=== PATIENT | female | born 1970 | race Caucasian/White ===

== ENCOUNTER → 2017-10-22 09:12 | Outpatient (CLI) | payer OTHER, SELFPAY ==
--- NOTE | 2017-10-22 09:15 | RAD_ITS ---
STUDY: X-RAY - RIGHT KNEE REASON FOR EXAM: Female, 47 years old. Right knee pain. TECHNIQUE: 4 view(s) of the knee. COMPARISON: None. FINDINGS: Normal visualized distal femur. Normal visualized proximal tibia and fibula. Normal proximal tibiofibular articulation. Normal medial femorotibial compartment. Normal lateral femorotibial compartment. Normal patellofemoral articulation. The soft tissue structures are unremarkable. RAD/Knee 4 or More Views IMPRESSION: Normal x-ray examination of the knee. Electronically Signed: Clinton Jacobsen MD at 19:56 EST Tel [phone], Service support ,
== END ==
PROVIDERS: Family Provider Internal Medicine; PCP Internal Medicine; Visit Provider Internal Medicine
DX: M25.561 Pain in right knee (principal)
CPT/HCPCS: 73564

== ENCOUNTER 2017-12-03 16:00 | Outpatient (RCR) | payer OTHER, SELFPAY ==
--- NOTE | 2017-10-29 12:02 | HP.PTEVAL_ITS ---
Patient's Visit Information GABRIELA MONTANA is a 47 year old F referred to Physical Therapy by Kiley RESENDIZ with a diagnosis of R lateral knee pain. Date of Evaluation: 10/29/17 Physical Therapist: Ignacio Oconnell, PT, - Visit Plan Frequency: 2-3x /Week Duration: 4 Weeks Plan: R LE stretching and strengthening (IT band), core stab ex's, DTR, foam rolling, bike, and HEP - Subjective Subjective: Pt reports she began crossfit 3 years ago and has gradually noticed an increase in R lat knee pain since. Pt reports her pain will come and go, depending on what type of activity she performs. Pt reports descending stairs and deep squatting are what causes her the most pain. No T or N at this time. Pt reports no sleep diff secondary to pain. Pt reports no prior Hx of L lat knee pain prior to this episode. Pt has not found anytbing that helps with her pain. 0/10 at rest, 8/10 at worst (squatting activity) - Pain R knee Pain Intensity (Out of 10): 0 Pain Intensity Range: 8 - Objective Neuro: B LE sensation is WNL to light touch. B pat tendon reflex= 2/3. Palpation: Pt is very sore along the distal IT band of R knee. No obvious deformity. MMT: B knee ext and flex= 5/5. ROM: L knee 0-120, R knee 0-115. Girth at joint line: R knee 39 cm, L knee 41 cm. Flexibility: pos IT band tightness - Goals Goal 1:: Decrease R knee pain x 50% to aid with work requirements Goal Time Frame: 4-6 Weeks Goal 2:: Increase R LE flexibility x 1 grade to aid with decreasing pain Goal Time Frame: 4-6 Weeks Goal 3:: I with HEP Goal Time Frame: 4-6 Weeks - Rehabilitation Potential Physical Therapy Diagnosis: R lateral knee pain, limited flexibility, and intol for squatting activity secondary to L IT-band syndrome Rehabilitation Potential: Good - Anticipated Interventions Patient/Client Instruction: Educate patient on: Condition, Plan of Care For the Purpose of:: To improve self management Therapeutic Exercise to Include: Strength training, Endurance training, Flexibilty training, Dynamic Lumbar Stabilization For the Purpose of:: To decrease pain, To increase ROM, To improve muscle performance and motor function Ultrasound (thermal/non thermal): Yes For the Purpose of:: To decrease pain Thank you for the opportunity to evaluate your patient. For Medicare and Medicare HMO plans, please review the plan of care and approve it. It will need to be FAXED BACK to us at [phone] for Medicare purposes. Please let me know if there are questions or concerns regarding this plan of care. Physician Signature: Date:
--- NOTE | 2017-12-03 16:34 | HP.PTEVAL_ITS ---
Patient's Visit Information GABRIELA MONTANA is a 47 year old F referred to Physical Therapy by Kiley RESENDIZ with a diagnosis of R lateral knee pain. Date of Evaluation: 10/29/17 Physical Therapist: Ignacio Oconnell PT, - Visit Plan Frequency: 2-3x /Week Duration: 4 Weeks Plan: Discharge - Subjective Subjective: Pt reports she began crossfit 3 years ago and has gradually noticed an increase in R lat knee pain since. Pt reports her pain will come and go, depending on what type of activity she performs. Pt reports descending stairs and deep squatting are what causes her the most pain. No T or N at this time. Pt reports no sleep diff secondary to pain. Pt reports no prior Hx of L lat knee pain prior to this episode. Pt has not found anytbing that helps with her pain. 0/10 at rest, 8/10 at worst (squatting activity) - Pain R knee Pain Intensity (Out of 10): 1 Pain Intensity Range: 8 - Objective Neuro: B LE sensation is WNL to light touch. B pat tendon reflex= 2/3. Palpation: Pt is very sore along the distal IT band of R knee. No obvious deformity. MMT: B knee ext and flex= 5/5. ROM: L knee 0-120, R knee 0-115. Girth at joint line: R knee 39 cm, L knee 41 cm. Flexibility: pos IT band tightness - Goals Goal 1:: Decrease R knee pain x 50% to aid with work requirements Goal Time Frame: 4-6 Weeks Goal 2:: Increase R LE flexibility x 1 grade to aid with decreasing pain Goal Time Frame: 4-6 Weeks Goal 3:: I with HEP Goal Time Frame: 4-6 Weeks - Rehabilitation Potential Physical Therapy Diagnosis: R lateral knee pain, limited flexibility, and intol for squatting activity secondary to L IT-band syndrome Rehabilitation Potential: Good - Anticipated Interventions Patient/Client Instruction: Educate patient on: Condition, Plan of Care For the Purpose of:: To improve self management Therapeutic Exercise to Include: Strength training, Endurance training, Flexibilty training, Dynamic Lumbar Stabilization For the Purpose of:: To decrease pain, To increase ROM, To improve muscle performance and motor function Ultrasound (thermal/non thermal): Yes For the Purpose of:: To decrease pain Thank you for the opportunity to evaluate your patient. For Medicare and Medicare HMO plans, please review the plan of care and approve it. It will need to be FAXED BACK to us at [phone] for Medicare purposes. Please let me know if there are questions or concerns regarding this plan of care. Physician Signature: Date:
--- NOTE | 2018-01-20 14:40 | HP.PTDCSUM_ITS ---
HP - PT D/C Summary It has been my pleasure to treat GABRIELA MONTANA under orders from Kiley Parekh, for the diagnosis of R lateral knee pain for a total of 10 visit(s). Discharge Date: Please see the following information for a summary of their discharge status. - Subjective Subjective: Pt was sore today. Better now - Pain R knee Pain Intensity (Out of 10): 1 - Objective Objective/Function: R knee pain /10. R knee ROM: flex= 110, ext=0. R knee MMT : 5/5 throughout. I with HEP. Rx goals achieved - Goals Goal 1:: Decrease R knee pain x 50% to aid with work requirements Goal 2:: Increase R LE flexibility x 1 grade to aid with decreasing pain Goal Progress: Goal Met Goal 3:: I with HEP - Plan Plan: Discharge - D/C Information If there are questions or concerns regarding this patient's physical therapy, please feel free to call me at [phone]. Thank you for the referral of this patient. Sincerely, Ignacio Oconnell, PT,
== END 2017-12-03 19:00 | disposition home or self-care (01) ==
LOC: PT 16:00
PROVIDERS: Family Provider Internal Medicine; PCP Internal Medicine; Visit Provider Internal Medicine
DX: M25.561 Pain in right knee (principal)
CPT/HCPCS: 97110; 97161; 97530

== ENCOUNTER → 2017-12-10 07:24 | Outpatient (CLI) | payer OTHER, SELFPAY ==
--- NOTE | 2017-12-10 07:45 | MRI_ITS ---
STUDY: MRI RIGHT MIDFOOT REASON FOR EXAM: Foot pain, fourth metatarsal cyst, arthritis. TECHNIQUE: Standardized fat and water weighted pulse sequences were obtained in all 3 orthogonal planes. COMPARISON: None. FINDINGS: There is a small tibiotalar joint effusion (inversion recovery sagittal image 10). Normal talonavicular articulation. Normal calcaneocuboid articulation. There is mild arthrosis of the navicular-cuneiform articulations with mild chondral thinning and very mild subchondral bone edema (inversion recovery sagittal images 6, 8, 9). Normal intercuneiform articulations. Normal first tarsometatarsal articulation. Normal Lisfranc ligament. Normal second tarsometatarsal articulation. There is arthrosis of the third tarsometatarsal joint with chondral thinning and subchondral cystic change (inversion recovery sagittal images 16, 17). There is arthrosis of the fourth tarsometatarsal joint with chondral thinning and small subchondral cysts of the fourth metatarsal base (inversion recovery sagittal images 16-18). Normal fifth tarsometatarsal joint. There is mild bone edema of the fourth metatarsal base (inversion recovery sagittal images 17, 18), a stress phenomenon. There is mild bone edema in the fifth metatarsal base (inversion recovery sagittal image 21), a stress phenomenon. Normal tibialis anterior tendon. Normal extensor hallucis longus tendon. Normal extensor digitorum longus tendons. Normal peroneus longus tendon and distal insertion. Normal peroneus brevis tendon and distal insertion. Normal visualized intrinsic muscles of the foot. Normal visualized plantar fascia. There is a small ganglion cyst lateral to the distal calcaneus (T2 axial series 6 image 16) measuring 0.4 cm in length. 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 Mild bone edema of the fourth and fifth metatarsal bases, a stress phenomenon. Mild arthrosis of the navicular-cuneiform articulations. Small ganglion cyst lateral to the distal calcaneus. Small tibiotalar joint effusion. Electronically Signed: Davian Arredondo MD at 9:48 EDT Tel , Service support ,
== END ==
PROVIDERS: Family Provider Internal Medicine; PCP Internal Medicine; Visit Provider Podiatrist
DX: M25.571 Pain in right ankle and joints of right foot (principal); M85.671 Other cyst of bone, right ankle and foot; M19.071 Primary osteoarthritis, right ankle and foot
CPT/HCPCS: 73718

== ENCOUNTER → 2018-01-16 08:25 | Outpatient (CLI) | payer OTHER, SELFPAY ==
[2018-01-16 09:00] LABS: Absolute Lymphocyte Count 2.11 X10^3/ul (0.83-4.51); Absolute Neutrophil Count 4.9 X10^3/uL (2.0-7.7); Basophil# 0.02 X10^3/uL; Basophil% 0.3 % (0-1); Eosinophil# 0.08 X10^3/uL; Eosinophils% 1.1 % (0-5); Hematocrit 38.9 % (37-47); Hemoglobin 12.8 g/dl (12.0-15.0); Lymphocyte # 2.11 X10^3/ul (4.0); Lymphocyte % 27.8 % (19-41); Mean Corp Hgb Conc 32.9 g/gl (32-36); Mean Corpuscular Hgb 27.5 pg (27.0-32.0); Mean Corpuscular Volume 83.7 fL (81-99); Mean Platelet Vol. 9.5 fl (6.2-12.0); Monocyte# 0.49 X10^3/uL; Monocyte% 6.4 % (0-10); Neutrophil # 4.89 X10^3/uL (2.7-7.7); Neutrophil % 64.3 % (47-70); Platelet Count 326 K/mm3 (150-450); RBC Distribution Width CV 14.3 % (11.6-14.6); RBC Distribution Width SD 43.9 fl (35.1-43.9); Red Blood Count 4.65 M/mm3 (4.2-5.4); White Blood Count 7.6 K/mm3 (4.4-11.0)
[2018-01-16 09:01] LABS: Color, Urine Yellow (Yellow); Glucose, Dipstick Normal (Normal); Ketone-Dipstick Negative (Negative); Leukocyte Esterase-Dipstick Negative /ul (Negative); Nitrite-Dipstick Negative (Negative); Occult Blood-Urine Negative /ul (Negative); Protein-Dipstick Negative (Negative); Urine Bilirubin Dipstick Negative (Negative); Urine Clarity Clear (Clear); Urine Urobilinogen Normal (Normal)
[2018-01-16 09:05] LABS: POSITIVE COUNT NO; POSITIVE DIFFERENTIAL NO; POSITIVE MORPHOLOGY NO
[2018-01-16 09:24] LABS: Microalbumin,Random Urine 8.5 mg/L (NO RANGE EST.); Microalbumin:Creatinine Ratio 16.6 mg/g CRE (<30 mg/g CRE)
[2018-01-16 09:33] LABS: AST(SGOT) 14 U/L (15-37); Alanine Aminotransfer ALT/SGPT 20 U/L (13-56); Albumin, Serum 3.6 g/dL (3.2-5.0); Alkaline Phosphatase 48 U/L (45-117); Anion Gap 10 (5-15); BUN 13 mg/dL (7-18); BUN/Creat Ratio 13.7 RATIO (10-20); Calcium,Total 8.8 mg/dL (8.5-10.1); Chloride 103 mmol/L (98-107); Cholesterol 122 mg/dL (200); Creatinine, Serum 0.95 mg/dL (0.55-1.02); EST Glomerular Filtration Rate 67 mL/min (>60); Est Glom Filt Rate - Afr Amer 81 mL/min (>60); Free T3 2.3 pg/mL (2.18-3.98); Globulin 3.5 g/dL (2.2-4.2); Glucose 85 mg/dL (74-106); High Density Lipoprotein 38 mg/dL; Protein, Total 7.1 g/dL (6.4-8.2); Sodium Level 137 mmol/L (136-145); T4 Free Direct 1.48 ng/dL (0.76-1.46); Thyroid Stim Hormone (TSH) 0.23 uIU/mL (0.358-3.74); Triglycerides 69 mg/dL; Very Low Density Lipoprotein 14 mg/dL (5-40)
[2018-01-17 08:54] LABS: AFP, Tumor Marker 1.4 ng/mL (0.0-8.3)
== END ==
PROVIDERS: Family Provider Internal Medicine; PCP Internal Medicine; Visit Provider Internal Medicine
DX: E78.2 Mixed hyperlipidemia (principal); E03.9 Hypothyroidism, unspecified; I10 Essential (primary) hypertension
CPT/HCPCS: 36415; 80053; 80061; 81002; 82043; 82105; 82570; 84439; 84443; 84481; 85025

== ENCOUNTER → 2018-02-14 07:47 | Outpatient (CLI) | payer OTHER, SELFPAY ==
[2018-02-14 13:14] LABS: Ferritin 16 ng/mL (8-252); Free T3 2.4 pg/mL (2.18-3.98); Iron 71 ug/dL (50-170); T4 Free Direct 1.58 ng/dL (0.76-1.46); Thyroid Stim Hormone (TSH) 0.42 uIU/mL (0.358-3.74)
== END ==
PROVIDERS: Family Provider Internal Medicine; PCP Internal Medicine; Visit Provider Internal Medicine
DX: L65.9 Nonscarring hair loss, unspecified (principal); Z86.39 Personal history of other endocrine, nutritional and metabolic disease
CPT/HCPCS: 36415; 82728; 83540; 84439; 84443; 84481

== ENCOUNTER → 2018-03-07 12:30 | Outpatient (CLI) | payer OTHER, SELFPAY ==
--- NOTE | 2018-03-07 13:00 | MRI_ITS ---
STUDY: MRI RIGHT KNEE REASON FOR EXAM: Gradual onset of right knee pain, no specific injury. TECHNIQUE: Standardized fat and water weighted pulse sequences were obtained in all 3 orthogonal planes. COMPARISON: Radiographs 10/22/2017. FINDINGS: Normal medial meniscus. Normal hyaline cartilage of the medial femorotibial compartment. Normal medial femoral condyle and tibial plateau. Normal medial collateral ligamentous complex (MCL). Normal distal semimembranosus, gracilis and semitendinosus tendons. Normal lateral meniscus. Normal hyaline cartilage of the lateral femorotibial compartment. Normal lateral femoral condyle and tibial plateau. Normal proximal tibiofibular articulation. Normal lateral collateral (fibular) ligament. Normal popliteus tendon. Normal biceps femoris tendon. There is intrasubstance mucoid degeneration/cyst of the anterior cruciate ligament (T2 sagittal images 12, 13) without focal discontinuity of the ligament. Normal posterior cruciate ligament (PCL). Normal congruent patellofemoral articulation. Normal hyaline cartilage of the patellofemoral compartment. Normal medial and lateral patellar retinaculum. Normal quadriceps tendon. Normal patellar tendon. Normal Hoffa's fat pad. There is a very small joint effusion. The soft tissues are unremarkable. The otherwise visualized osseous structures are unremarkable. MRI/Lower Ext Joint Only (Routine) IMPRESSION: Intrasubstance mucoid degeneration/cyst of the anterior cruciate ligament. Very small joint effusion. Otherwise, unremarkable MRI of the right knee without demonstrated meniscal tear. Electronically Signed: Davian Arredondo MD at 13:36 EDT Tel , Service support ,
== END ==
PROVIDERS: Family Provider Internal Medicine; PCP Internal Medicine; Visit Provider Orthopaedic Surgery
DX: M25.561 Pain in right knee (principal)
CPT/HCPCS: 73721

== ENCOUNTER → 2019-03-26 09:06 | Outpatient (CLI) | payer OTHER, SELFPAY ==
[2019-03-19 09:11] VITALS: BMI 31.5
--- NOTE | 2019-03-26 09:09 | BI_ITS ---
MAMMOGRAPHY - BILATERAL DIAGNOSTIC REASON FOR EXAM: Female, 49 years old. Lump PERTINENT HISTORY: Grandmother, and on with breast cancer. TECHNIQUE: Digital examination. Mediolateral oblique (MLO) and craniocaudad (CC) views of both breasts were obtained along with 3-D edwina synthesis. CAD: CAD was performed on this study. COMPARISON: 09/10/2017 FINDINGS: Breast Composition: There are scattered areas of fibroglandular density. There are no dominant masses or suspicious calcifications. However, because the patient complains of a palpable lump in the left breast, further evaluation of this area with ultrasound recommended. No other significant abnormalities are identified. BI/DIAG MAMM W/CAD, BILAT IMPRESSION: Further ultrasonographic evaluation recommended, as described above. Recall Side: Left Breast ASSESSMENT CATEGORY: BIRADS Category 0: Incomplete. Need additional imaging evaluation. A letter regarding these results will be sent to the patient by the facility within 30 days. FOLLOW UP RECOMMENDATION: Ultrasound Recommended. (I) Approximately 10% of breast cancers are not detected by mammography. A normal mammogram should not delay biopsy of a clinically suspicious abnormality. Electronically Signed: Norberto Valencia MD at 11:58 EDT , Service support ,
--- NOTE | 2019-03-26 09:09 | US_ITS ---
STUDY: ULTRASOUND BREAST - LEFT REASON FOR EXAM: Female, 49 years old. Lump TECHNIQUE: Axial and longitudinal images of the LEFT breast were performed with a high resolution ultrasound transducer. COMPARISON: None. FINDINGS: LEFT Breast: Ultrasound evaluation of the left breast, in the area of concern, 3-4 o'clock shows only normal dense fibroglandular tissue. No suspicious solid or cystic mass, architectural distortion, or shadowing calcifications. US/Breast Limited Unilateral IMPRESSION: No suspicious sonographic findings ASSESSMENT CATEGORY: BIRADS Category 1: Negative. A letter regarding these results will be sent to the patient by the facility within 30 days. Electronically Signed: Norberto Valencia MD at 11:59 EDT , Service support ,
== END ==
PROVIDERS: Family Provider Internal Medicine; PCP Internal Medicine; Referring Provider Nurse Practitioner Women's Health; Visit Provider Nurse Practitioner Women's Health
DX: N63.20 Unspecified lump in the left breast, unspecified quadrant (principal)
CPT/HCPCS: 76642; 77062; 77066; G0279

== ENCOUNTER → 2019-08-21 13:18 | Outpatient (CLI) | payer OTHER, SELFPAY ==
[2019-08-21 08:20] VITALS: BMI 31.5
[2019-08-28 14:07] LABS: HPV Genotype 16, Aptima Positive (Negative)
[2019-08-28 16:14] LABS: HPV APTIMA, High Risk Positive (Negative); HPV Genotype 18,45 Aptima Negative (Negative)
== END ==
PROVIDERS: Family Provider Internal Medicine; PCP Internal Medicine; Visit Provider Nurse Practitioner Women's Health
DX: Z12.4 Encounter for screening for malignant neoplasm of cervix (principal)
CPT/HCPCS: 87624; 88175; G0145

== ENCOUNTER → 2020-01-01 07:13 | Outpatient (CLI) | payer OTHER, SELFPAY ==
[2019-08-21 08:20] VITALS: BMI 31.5
--- NOTE | 2020-01-01 07:22 | RAD_ITS ---
STUDY: X-RAY - LEFT HAND REASON FOR EXAM: Female, 49 years old. POLYARTHRALGIA. BILAT HAND PAIN IN METACARPAL AREA. RIGHT HAND PAIN ( and gt;) LEFT HAND. PT IS DOMINANT RIGHT HAND TECHNIQUE: 3 view(s) of the hand. COMPARISON: None. FINDINGS: Normal radiocarpal articulation. Normal distal radioulnar joint. Normal visualized carpal bones. Normal carpal articulations Normal carpometacarpal articulation of the thumb. Normal second through fifth carpometacarpal joints. Normal metacarpi. Normal metacarpophalangeal joint of the thumb. Normal interphalangeal joint of the thumb. Normal proximal and distal phalanges of the thumb. Normal metacarpophalangeal joints of the second through fifth fingers. Normal proximal and distal interphalangeal joints of the second through fifth fingers. Normal phalanges of the second through fifth fingers. The soft tissue structures are unremarkable. RAD/Hand Min 3 Views IMPRESSION: Normal x-ray examination of the hand. Electronically Signed: Clinton Jacobsen, at 9:24 EDT , Service support ,
--- NOTE | 2020-01-01 07:22 | RAD_ITS ---
STUDY: X-RAY - RIGHT HAND REASON FOR EXAM: Female, 49 years old. POLYARTHRALGIA. BILAT HAND PAIN IN METACARPAL AREA. RIGHT HAND PAIN ( and gt;) LEFT HAND. PT IS DOMINANT RIGHT HAND TECHNIQUE: 3 view(s) of the hand. COMPARISON: None. FINDINGS: Normal radiocarpal articulation. Normal distal radioulnar joint. Normal visualized carpal bones. Normal carpal articulations Normal carpometacarpal articulation of the thumb. Normal second through fifth carpometacarpal joints. Normal metacarpi. Normal metacarpophalangeal joint of the thumb. Normal interphalangeal joint of the thumb. Normal proximal and distal phalanges of the thumb. Normal metacarpophalangeal joints of the second through fifth fingers. Normal proximal and distal interphalangeal joints of the second through fifth fingers. Normal phalanges of the second through fifth fingers. The soft tissue structures are unremarkable. RAD/Hand Min 3 Views IMPRESSION: Normal x-ray examination of the hand. Electronically Signed: Clinton Jacobsen, at 9:24 EDT , Service support ,
== END ==
PROVIDERS: PCP Internal Medicine
DX: M25.50 Pain in unspecified joint (principal)
CPT/HCPCS: 73130

== ENCOUNTER → 2020-01-05 12:08 | Outpatient (CLI) | payer OTHER, SELFPAY ==
[2019-08-21 08:20] VITALS: BMI 31.5
[2020-01-05 12:36] LABS: Absolute Lymphocyte Count 2.47 X10^3/uL (0.83-4.51); Absolute Neutrophil Count 4.4 X10^3/uL (2.0-7.7); Basophil# 0.04 X10^3/uL; Basophil% 0.5 % (0-1); Eosinophil# 0.11 X10^3/uL; Eosinophils% 1.5 % (0-5); Hematocrit 40.9 % (37-47); Hemoglobin 13.4 g/dL (12.0-15.0); Lymphocyte # 2.47 X10^3/ul (4.0); Lymphocyte % 32.8 % (19-41); Mean Corp Hgb Conc 32.8 g/dL (32-36); Mean Corpuscular Hgb 27.3 pg (27.0-32.0); Mean Corpuscular Volume 83.5 fL (81-99); Mean Platelet Vol. 9.4 fl (6.2-12.0); Monocyte# 0.48 X10^3/uL; Monocyte% 6.4 % (0-10); NRBC Flagged by Analyzer 0 % (0-5); Neutrophil % 58.5 % (47-70); Platelet Count 354 K/mm3 (150-450); RBC Distribution Width CV 13.9 % (11.6-14.6); RBC Distribution Width SD 42.4 fl (35.1-43.9); White Blood Count 7.5 K/mm3 (4.4-11.0)
[2020-01-05 12:42] LABS: Erythrocyte Sedimentation Rate 16 mm/hr (0-20)
[2020-01-05 13:09] LABS: AST(SGOT) 16 U/L (15-37); Alanine Aminotransfer ALT/SGPT 26 U/L (13-56); Albumin, Serum 3.5 g/dL (3.2-5.0); Alkaline Phosphatase 53 U/L (45-117); BUN 12 mg/dL (7-18); BUN/Creat Ratio 14.1 RATIO (10-20); Calcium,Total 8.8 mg/dL (8.5-10.1); Creatinine, Serum 0.85 mg/dL (0.55-1.02); EST Glomerular Filtration Rate 75 mL/min (>60); Est Glom Filt Rate - Afr Amer 91 mL/min (>60); Globulin 3.6 g/dL (2.2-4.2); Glucose 90 mg/dL (74-106); Potassium 3.7 mmol/L (3.5-5.1); Protein, Total 7.1 g/dL (6.4-8.2); Sodium Level 139 mmol/L (136-145)
[2020-01-05 13:10] LABS: Anion Gap 6 (5-15); CRP 8.98 mg/L (0.0-3.0); Chloride 108 mmol/L (98-107); Rheumatoid Factor < 10.0 IU/mL (<15)
[2020-01-07 15:41] LABS: CCP IgG Antibodies 10 units (0-19)
== END ==
PROVIDERS: PCP Internal Medicine
DX: M25.50 Pain in unspecified joint (principal)
CPT/HCPCS: 36415; 80053; 85025; 85652; 86038; 86140; 86200; 86431

== ENCOUNTER 2020-06-10 05:30 | Day surgery (SDC) | payer OTHER, SELFPAY ==
[2020-05-02 15:25] VITALS: BMI 31.5
--- NOTE | 2020-06-10 05:46 | PCM.HP.BLA ---
Problem List (1) Screening for malignant neoplasm of intestine Status: Acute (2) Esophageal reflux Status: Chronic Qualifiers: Esophagitis presence: esophagitis presence not specified Qualified Code(s): K21.9 - Gastro-esophageal reflux disease without esophagitis History and Physical Date of Admission: 06/10/20 Intake Visit Reasons: EGD/ CSCOPE Chief Complaint: EGD/ Cscope Chrome Tanner Required: No Is patient in pain?: No Allergies doxycycline Adverse Reaction (Verified 05/02/20 15:10) Vomiting hydromorphone [Hydromorphone] Adverse Reaction (Verified 05/02/20 15:10) Nausea/Vom/Diarrhea oxycodone [Oxycodone] Adverse Reaction (Verified 05/02/20 15:10) Nausea/Vom/Diarrhea Medications Levothyroxine [Synthroid] 150 mcg PO DAILY 06/01/13 [History Confirmed 05/02/20] Lovastatin [Mevacor] 20 mg PO QHS 06/01/13 [History Confirmed 05/02/20] Pantoprazole Sodium [Protonix] 40 mg PO QODAY 06/01/13 [History Confirmed 05/02/20] Spironolactone [Aldactone] 100 mg PO BID 06/01/13 [History Confirmed 05/02/20] aspirin 325 mg tablet 325 mg PO DAILY 05/02/20 [History Confirmed 05/02/20] meclizine 25 mg tablet 25 mg PO DAILY 05/02/20 [History Confirmed 05/02/20] metformin 500 mg tablet 2,500 mg PO DAILY tab 05/02/20 [History Confirmed 05/02/20] methotrexate sodium 2.5 mg tablet 25 mg PO QWEEK tab 05/02/20 [History Confirmed 05/02/20] FOR[facility], LAT[facility] Medical History (Updated 05/02/20 @ 15:[address] Aric Mirza MD) Screening for malignant neoplasm of intestine (Acute) Anemia (Acute) Back problem (Acute) Carpal tunnel syndrome (Acute) Heart murmur (Acute) PCOS (polycystic ovarian syndrome) (Acute) GERD (gastroesophageal reflux disease) (Acute) Thyroid disease (Acute) Lupus (Acute) Blood clotting disorder (Acute) Fatty liver disease, nonalcoholic (Acute) Contraception management (Acute) Rheumatoid arthritis (Acute) Positive test for human papillomavirus (HPV) (Acute) Genital herpes (Acute) Polycystic ovaries (Chronic) Hypothyroidism (Chronic) Hx of venous thrombosis and embolism (Chronic) Esophageal reflux (Chronic) Surgical History (Updated 05/02/20 @ 15:07 by Mary Velazquez) Hx of colonoscopy (Acute) S/P bunionectomy (Acute) H/O dilation and curettage (Acute) Family History (Updated 05/02/20 @ 15:09 by Mary Velazquez) Father Hypertension Diabetes Cancer CAD (coronary artery disease) Mother Cancer ovarian Muscular dystrophy Brother Hypertension Sister Hypertension Social History (Updated 05/02/20 @ 15:[address] 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 She has had long-term heartburn issues. Up until a year ago she could get by by taking pantoprazole every other day. 1 year ago however she had to convert to taking it daily. She has never had an upper endoscopy. She is appropriately concerned about long-term proton pump inhibitor therapy. She is in need of a screening colonoscopy. It is of note that January 13, 2017 she had an urgent colonoscopy for rectal bleeding and abnormal CT scan and suspected colitis. At that time bowel prep was appropriate but there was still liquid stool throughout. Colonoscopy with biopsies were obtained. There was abnormality of the descending colon consistent with colitis. Scattered diverticulosis was noted in the sigmoid colon. Visualization of the descending colon regarding the diverticular disease was limited due to the amount of inflammation. Biopsies showed fragments of colonic mucosa with focal ulceration and associated acute inflammation and changes consistent with ischemic colitis. Biopsies of the sigmoid colon and rectum did not show similar findings they were normal. Fortunately at this point she is not having rectal bleeding. She states that her abdominal habits have never been the same since then. She will occasionally have constipation alternating then with diarrhea. She has not noticed any bright red blood per rectum. She did have some weight loss leading up to 2018 but over the past year she has had a slow regaining of weight 25 pounds. She does have a blood dyscrasia/lupus. She has had several previous left lower extremity DVTs but has not had anything since foot surgery in 2013. She fairly consistently wear support hose when she is at work. HPI HPI HPI: GABRIELA SARAVIA, is a 50 F who presents to the office today for Exam Const General: cooperative, healthy appearing, comfortable, no acute distress Nutritional Appearance: obese Orientation: alert, awake HENMT Head: normal to inspection Eyes General: appearance normal, both eyes and all related structures Neck Carotids: normal carotid upstroke, no bruits Resp Effort & Inspection: normal respiratory effort Auscultation: clear to auscultation bilaterally Cardio Rate: regular rate Rhythm: regular rhythm GI Palpation: soft, no hepatosplenomegaly Auscultation: normal bowel sounds Musc Cervical Spine: normal cervical lordosis Skin General: no rashes or lesions noted Neuro Cognition: normal cognition Extrem General: no calf tenderness Psych Affect: normal affect Assessment & Plan Problems 1. Gastroesophageal reflux disease, esophagitis presence not specified K21.9 2. Screening for malignant neoplasm of intestine Z12.10 Plan I am recommended the patient a esophagogastroduodenoscopy with very careful inspection and potential gupta biopsies looking for potential source of aggravation to her gastroesophageal reflux disease. She has never had a previous upper endoscopy. Careful inspection for possible hiatal hernia or reflux changes or Holman's or eosinophilic esophagitis will be pursued. I am recommending to her a screening colonoscopy at age 50. She has had a previous urgent colonoscopy with that was done during a time of acute ischemic colitis inflammation. She is aware of the technique, benefit, risk and alternatives. We will schedule and proceed at her discretion. Copy: Dr. Kiley Mirza M.D., F.A.C.S. Coding Level of Care Code Off vis,est,level 3 Diagnoses Gastroesophageal reflux disease, esophagitis presence not specified K21.9 ??Esophagitis presence: esophagitis presence not specified Screening for malignant neoplasm of intestine Z12.10 I have re-examined the patient. There are no clinical changes since date of exam. Procedure Criteria Procedure Type: Elective COVID Risk Discussion: The surgeon/proceduralist and patient have discussed in detail the risk of exposure to and/or potential harm posed by the COVID-19 virus with having a surgery/procedure at this time versus the risk of delaying the surgery/procedure. It is not possible to know either the risk of delaying the surgery or procedure or chance of getting an infection with perfect accuracy, but a joint decision was made between the patient and the surgeon/proceduralist to proceed at this time with the scheduled surgery/procedure as indicated on the consent form.
[2020-06-10 05:53] VITALS: BP 128/67; PULSE 69; RESP 18; TEMP 36.2; BMI 36.3
[2020-06-10] MEDS: Lactated Ringers 1,000 ML 100 ML IV (06:17)
--- NOTE | 2020-06-10 06:30 | COLBX_PTH ---
PATIENT: GABRIELA SARAVIA LOC: EN U#:[id number] AGE/SX: 50/F ROOM: RE06/10/[address]: Dr. Aric Mirza MD : 1970 BED: DIS: 06/10/2020 SPEC #: [id number] RECD: 06/10/20 11:51 STATUS: MIS SADAF #: [id number] KLARISSA: 06/10/20 06:[address]: Aric Mirza DEPT: SURGICAL PATHOLOGY RECD BY: Italia Slater ENTERED: 06/10/20 13:25 SP TYPE: COLON BX OTHR DR: Dr. Kiley Parekh DO Tissues: A - Duodenum, NOS B - Gastric mucous membrane C - Esophagus, NOS D - Esophagus, NOS E - COLON BIOPSY Procedures: Special Stain Group II Surgery Specimen Level IV Alcian Blue/PAS (control) HEADER OPERATION: Colonoscopy, EGD ([facility] [place]) PRE-OP DIAGNOSIS: Screening, GERD TISSUE SUBMITTED: A - Duodenum biopsy, B - Antrum biopsy for histo and H. pylori, C - Distal esophagus biopsy, D - Mid esophagus biopsy, E - Random colonic biopsy MICROSCOPIC DIAGNOSIS A. Duodenum, biopsy: No pathologic change. B. Gastric antrum, biopsy: Mild chronic gastritis. See comment. C. Distal esophagus, biopsy: Focal change of reflux. Junctional mucosa with mild chronic inflammation. No evidence of intestinal metaplasia. See comment. D. Mid esophagus, biopsy: Fragments of benign squamous mucosa with no pathologic change. E. Colon, random biopsy: No pathologic change. See comment. AM:elian 06/13/20 COMMENT B. The results of immunohistochemistry for Helicobacter pylori will be reported separately ([id number]). C. Alcian blue/PAS stain with matched control supports the above diagnosis. E. Eosinophils are mildly increased in the mucosa. The significance of this is unclear. MICROSCOPIC DESCRIPTION Slides are reviewed. GROSS DESCRIPTION A - Received in fixative is one container labeled with the patient's name and designated duodenal biopsy. The specimen consists of one irregular fragment of light kurtz soft tissue that measures 0.5 x 0.3 x 0.1 cm. The specimen is totally submitted in one cassette. B - Received in fixative is one container labeled with the patient's name and designated antrum biopsy. The specimen consists of one irregular fragment of light kurtz soft tissue that measures 0.7 x 0.2 x 0.1 cm. The specimen is totally submitted in one cassette. C - Received in fixative is one container labeled with the patient's name and designated distal esophagus biopsy. The specimen consists of multiple irregular fragments of light kurtz soft tissue that in aggregate measure 1 x 0.3 x 0.1 cm. The specimen is totally submitted in one cassette. D - Received in fixative is one container labeled with the patient's name and designated mid esophagus biopsy. The specimen consists of multiple irregular fragments of light kurtz soft tissue that in aggregate measure 0.5 x 0.5 x 0.1 cm. The specimen is totally submitted in one cassette. E - Received in fixative is one container labeled with the patient's name and designated random colonic biopsy. The specimen consists of multiple irregular fragments of light kurtz soft tissue that in aggregate measure 1 x 0.5 x 0.1 cm. The specimen is totally submitted in one cassette. / SJ:rg 06/10/20 TC:5 CPT: 56484 x5, 87690
--- NOTE | 2020-06-10 06:30 | IMM_PTH ---
PATIENT: GABRIELA SARAVIA LOC: EN U#:[id number] AGE/SX: 50/F ROOM: RE06/10/[address]: Dr. Aric Mirza MD : 1970 BED: DIS: 06/10/2020 SPEC #: [id number] RECD: 06/10/20 13:50 STATUS: MIS REQ #: [id number] KLARISSA: 06/10/20 06:[address]: Aric Mirza DEPT: IMMUNOHISTOCHEMISTRY RECD BY: Krysten Cline ENTERED: 06/10/20 13:50 SP TYPE: IMMUNO OTHR DR: Dr. Kiley Parekh, DO Tissues: B - Stomach, NOS Procedures: H Pylori (initial) PHYSICIAN & INSTITUTION [place] [id number] SPECIMEN INFORMATION: Tissue Source: B - Antrum biopsy Clinical Info: Screening, GERD Specimen Number: [id number] CPT code: 66908 METHODOLOGY: Deparaffinized sections of prefer/formalin-fixed tissue or PAP/DQ stained slides are incubated with monoclonal/polyclonal antibodies/oligonucleotide probes. Localization is made via biotin free immunoperoxidase method. Appropriate controls are performed and reacted as expected. Results on target cell population are indicated in the following table: RESULTS: ANTIBODY / CLONE RESULT Block B H Pylori (polyclonal) negative These tests were developed and their performance characteristics determined by [facility]. They may not have been cleared or approved by the [place]. Food and Drug Administration. The FDA has determined that such clearance or approval is not necessary. INTERPRETATION: B. Gastric antrum, biopsy: Negative for Helicobacter pylori organisms. AM:elina 06/13/20
[2020-06-10 07:01] VITALS: BP 105/59; BP 128/67; PULSE 70; RESP 16; TEMP 36.2; O2SAT 98
--- NOTE | 2020-06-10 07:02 | OP.CCLET_ITS ---
06/10/2020 Kiley Parekh [address] [place] [address] Re : Upper GI endoscopy procedure for Mesha Figueroa Dear Dr. Parekh This procedure was performed on Wednesday, June 10, 2020. My impressions and recommendations are as follows: Impressions : - Z-line variable, 40 cm from the incisors. Biopsied. - Normal mid esophagus. Biopsied. - Small hiatal hernia. - Normal stomach. Biopsied. - Normal examined duodenum. Biopsied. Recommendations : - Discharge patient to home. - Resume previous diet. - Continue present medications. - Telephone my office for pathology results in 1 week. Small hiatal hernia without aggressive reflux changes. Anticipate medical treatment My findings are described in the full procedure note, which is enclosed. If I can be of further assistance, please feel free to contact me at Doctor phone number(s): Work: . Sincerely, Aric Mirza MD 06/10/2020 7:01:48 AM This report has been signed electronically.
--- NOTE | 2020-06-10 07:02 | OP.EGD_ITS ---
Patient Name: Mesha Figueroa Procedure Date: 06/10/2020 6:15 AM Date of : 1970 Age: 50 Procedure: Upper GI endoscopy Indications: Heartburn Providers: Aric Mirza MD Referring MD: Kiley Parekh Medicines: See the Anesthesia note for documentation of the administered medications Complications: No immediate complications. Procedure: Pre-Anesthesia Assessment: - Prior to the procedure, a History and Physical was performed, and patient medications and allergies were reviewed. The patient's tolerance of previous anesthesia was also reviewed. The risks and benefits of the procedure and the sedation options and risks were discussed with the patient. All questions were answered, and informed consent was obtained. Prior Anticoagulants: The patient has taken no previous anticoagulant or antiplatelet agents. ASA Grade Assessment: II - A patient with mild systemic disease. After reviewing the risks and benefits, the patient was deemed in satisfactory condition to undergo the procedure. After obtaining informed consent, the endoscope was passed under direct vision. Throughout the procedure, the patient's blood pressure, pulse, and oxygen saturations were monitored continuously. The gastroscope was introduced through the mouth, and advanced to the second part of duodenum. The upper GI endoscopy was accomplished without difficulty. The patient tolerated the procedure well. Scope In: 6:33:09 AM Scope Out: 6:39:42 AM Total Procedure Duration Time 0 hours 6 minutes 33 seconds Findings: The Z-line was variable and was found 40 cm from the incisors. Biopsies were taken with a cold forceps for histology. The mid esophagus was normal. Biopsies were taken with a cold forceps for histology. A small hiatal hernia was present. The entire examined stomach was normal. Biopsies were taken with a cold forceps for histology. The examined duodenum was normal. Biopsies were taken with a cold forceps for histology. Impression: - Z-line variable, 40 cm from the incisors. Biopsied. - Normal mid esophagus. Biopsied. - Small hiatal hernia. - Normal stomach. Biopsied. - Normal examined duodenum. Biopsied. Recommendation: - Discharge patient to home. - Resume previous diet. - Continue present medications. - Telephone my office for pathology results in 1 week. Small hiatal hernia without aggressive reflux changes. Anticipate medical treatment Procedure Code(s): --- Professional --- 76592, Esophagogastroduodenoscopy, flexible, transoral; with biopsy, single or multiple Diagnosis Code(s): --- Professional --- K22.8, Other specified diseases of esophagus K44.9, Diaphragmatic hernia without obstruction or gangrene R12, Heartburn CPT copyright 2017 [employer]. All rights reserved. The codes documented in this report are preliminary and upon hub inventory specialist review may be revised to meet current compliance requirements. Aric Mirza MD 06/10/2020 7:01:48 AM This report has been signed electronically. Number of Addenda: 0 Note Initiated On: 06/10/2020 6:15 AM
--- NOTE | 2020-06-10 07:04 | OP.CCLET_ITS ---
06/10/2020 Kiley Parekh [address] [place] [address] Re : Colonoscopy procedure for Mesha Figueroa Dear Dr. Parekh This procedure was performed on Wednesday, June 10, 2020. My impressions and recommendations are as follows: Impressions : - Hemorrhoids found on perianal exam. - The entire examined colon is normal. Biopsied. - The examination was otherwise normal. Recommendations : - Discharge patient to home. - Resume previous diet. - Continue present medications. - Repeat colonoscopy in 10 years for screening purposes. - Telephone my office for pathology results in 1 week. My findings are described in the full procedure note, which is enclosed. If I can be of further assistance, please feel free to contact me at Doctor phone number(s): Work: . Sincerely, Aric Mirza MD 06/10/2020 7:03:40 AM This report has been signed electronically.
--- NOTE | 2020-06-10 07:04 | OP.COLON_ITS ---
Patient Name: Mesha Figueroa Procedure Date: 06/10/2020 6:40 AM Date of : 1970 Age: 50 Procedure: Colonoscopy Indications: Screening for colorectal malignant neoplasm Providers: Aric Mirza MD Referring MD: Kiley Parekh Medicines: See the Anesthesia note for documentation of the administered medications Patient Profile: Last Colonoscopy: 3 years ago. Complications: No immediate complications. Procedure: Pre-Anesthesia Assessment: - Prior to the procedure, a History and Physical was performed, and patient medications and allergies were reviewed. The patient's tolerance of previous anesthesia was also reviewed. The risks and benefits of the procedure and the sedation options and risks were discussed with the patient. All questions were answered, and informed consent was obtained. Prior Anticoagulants: The patient has taken no previous anticoagulant or antiplatelet agents. ASA Grade Assessment: II - A patient with mild systemic disease. After reviewing the risks and benefits, the patient was deemed in satisfactory condition to undergo the procedure. After I obtained informed consent, the scope was passed under direct vision. Throughout the procedure, the patient's blood pressure, pulse, and oxygen saturations were monitored continuously. The colonoscope was introduced through the anus and advanced to the cecum, identified by appendiceal orifice and ileocecal valve. The colonoscopy was performed without difficulty. The patient tolerated the procedure well. The quality of the bowel preparation was good. The ileocecal valve and the appendiceal orifice were photographed. Scope In: 6:42:15 AM Scope Withdrawal Time 0 hours 7 minutes 23 seconds Scope Out: 6:56:27 AM Total Procedure Duration Time 0 hours 14 minutes 12 seconds Findings: Hemorrhoids were found on perianal exam. The colon (entire examined portion) appeared normal. Biopsies for histology were taken with a cold forceps from the entire colon for evaluation of microscopic colitis. The exam was otherwise without abnormality. Impression: - Hemorrhoids found on perianal exam. - The entire examined colon is normal. Biopsied. - The examination was otherwise normal. Recommendation: - Discharge patient to home. - Resume previous diet. - Continue present medications. - Repeat colonoscopy in 10 years for screening purposes. - Telephone my office for pathology results in 1 week. Procedure Code(s): --- Professional --- 69663, Colonoscopy, flexible; with biopsy, single or multiple Diagnosis Code(s): --- Professional --- Z12.11, Encounter for screening for malignant neoplasm of colon K64.9, Unspecified hemorrhoids CPT copyright 2017 [employer]. All rights reserved. The codes documented in this report are preliminary and upon bomb loader review may be revised to meet current compliance requirements. Aric Mirza MD 06/10/2020 7:03:40 AM This report has been signed electronically. Number of Addenda: 0 Note Initiated On: 06/10/2020 6:40 AM
[2020-06-10 07:06] VITALS: BP 101/47; BP 128/67; PULSE 72; RESP 16; O2SAT 98
[2020-06-10 07:11] VITALS: BP 107/66; BP 128/67; PULSE 65; RESP 16; O2SAT 99
[2020-06-10 07:16] VITALS: BP 115/71; BP 128/67; PULSE 67; RESP 16; TEMP 36.3; O2SAT 99
[2020-06-10 07:49] VITALS: BP 128/67
== END 2020-06-10 07:50 | disposition home or self-care (01) ==
LOC: EN 05:32 → AC 05:32
PROVIDERS: Anesthesiology; PCP Internal Medicine; Referring Provider Internal Medicine; Visit Provider Surgery
PROC: 0DJD8ZZ Inspection of Lower Intestinal Tract, Via Natural or Artificial Opening Endoscopic (ICD-10-PCS; CPT 45378; principal; 2020-06-10 06:25)
DX: Z12.11 Encounter for screening for malignant neoplasm of colon (principal); K64.9 Unspecified hemorrhoids; K21.9 Gastro-esophageal reflux disease without esophagitis; K44.9 Diaphragmatic hernia without obstruction or gangrene; Z11.59 Encounter for screening for other viral diseases; E28.2 Polycystic ovarian syndrome; K76.0 Fatty (change of) liver, not elsewhere classified; M06.9 Rheumatoid arthritis, unspecified; E03.9 Hypothyroidism, unspecified; M32.9 Systemic lupus erythematosus, unspecified; Z86.2 Personal history of diseases of the blood and blood-forming organs and certain disorders involving the immune mechanism; Z87.19 Personal history of other diseases of the digestive system; Z86.718 Personal history of other venous thrombosis and embolism; Z79.82 Long term (current) use of aspirin; Z79.84 Long term (current) use of oral hypoglycemic drugs; Z79.899 Other long term (current) drug therapy
CPT/HCPCS: 43239; 45380; 87635; 88305; 88313; 88342; C9803; J7120; J2405; U0003

== ENCOUNTER → 2020-07-05 09:33 | Outpatient (CLI) | payer OTHER, SELFPAY ==
[2020-06-10 05:53] VITALS: BMI 36.3
--- NOTE | 2020-07-05 10:00 | MRI_ITS ---
STUDY: MRI LEFT ANKLE WITHOUT CONTRAST REASON FOR EXAM: Left ankle pain, left heel pain, left foot pain, plantar fasciitis, rheumatoid arthritis. TECHNIQUE: Standardized fat and water weighted pulse sequences were obtained in all 3 orthogonal planes. COMPARISON: None. FINDINGS: There is a small ganglion cyst at the dorsal aspect of the head of the talus (inversion recovery sagittal image 13) measuring 0.7 cm in length. Normal posterior tibialis tendon. Normal flexor digitorum longus tendon. Normal flexor hallucis longus tendon. Normal peroneus longus and brevis tendons. There is a low-lying muscular belly of the peroneus brevis (T1 axial images 12, 13). Normal tibialis anterior tendon. Normal extensor hallucis longus tendon. Normal extensor digitorum longus tendons. Normal Achilles tendon and teno-osseous insertion. There is mild thickening and interstitial edema of the central cord of the plantar fascia (inversion recovery sagittal image 9). There is a plantar calcaneal enthesophyte. There is mild atrophy with mild partial fat replacement of the abductor digiti minimi muscle (T1 sagittal image 17). Normal distal tibiofibular syndesmotic ligamentous complex. Normal lateral ligamentous complex. Normal subtalar ligaments and sinus tarsi. Normal deltoid ligamentous complexes. Normal plantar calcaneonavicular (spring) ligament. There is a small tibiotalar joint effusion (inversion recovery sagittal image 14). Normal talar dome. Normal subtalar articulations. Normal talonavicular articulation. Normal calcaneocuboid articulation. Normal navicular-cuneiform articulations. There is mild cystic change of the third and fourth metatarsal bases (inversion recovery sagittal images 15-17). MRI/Lower Ext Joint Only (Routine) IMPRESSION: Mild plantar fasciitis. Mild atrophy of the abductor digiti minimi muscle. Small tibiotalar joint effusion. Small ganglion cyst at the dorsal aspect of the head of the talus. Electronically Signed: Davian Arredondo MD at 11:50 EST Tel , Service support ,
== END ==
PROVIDERS: PCP Internal Medicine; Referring Provider Podiatrist Foot & Ankle Surgery; Visit Provider Podiatrist Foot & Ankle Surgery
DX: M79.672 Pain in left foot (principal)
CPT/HCPCS: 73721

== ENCOUNTER → 2020-07-08 11:03 | Outpatient (CLI) | payer OTHER, SELFPAY ==
[2020-06-10 05:53] VITALS: BMI 36.3
[2020-07-08 13:05] LABS: Hemoglobin 12.9 g/dL (12.0-15.0); Mean Corp Hgb Conc 31.5 g/dL (32-36); Mean Corpuscular Hgb 28.4 pg (27.0-32.0); Mean Corpuscular Volume 90.3 fL (81-99); Mean Platelet Vol. 9.4 fl (6.2-12.0); Platelet Count 391 K/mm3 (150-450); RBC Distribution Width CV 15.3 % (11.6-14.6); Red Blood Count 4.54 M/mm3 (4.2-5.4); White Blood Count 8.3 K/mm3 (4.4-11.0)
[2020-07-08 13:14] LABS: Erythrocyte Sedimentation Rate 7 mm/hr (0-30)
[2020-07-08 13:25] LABS: ALB/GLOB Ratio 0.9 RATIO (0.9-2.4); AST(SGOT) 15 U/L (15-37); Alanine Aminotransfer ALT/SGPT 30 U/L (13-56); Albumin, Serum 3.6 g/dL (3.2-5.0); Alkaline Phosphatase 64 U/L (45-117); Anion Gap 3 (5-15); BUN 16 mg/dL (7-18); BUN/Creat Ratio 18.1 RATIO (10-20); Calcium,Total 9.7 mg/dL (8.5-10.1); Chloride 108 mmol/L (98-107); Creatinine, Serum 0.88 mg/dL (0.55-1.02); EST Glomerular Filtration Rate 72 mL/min (>60); Est Glom Filt Rate - Afr Amer 87 mL/min (>60); Globulin 3.8 g/dL (2.2-4.2); Glucose 78 mg/dL (74-106); Protein, Total 7.4 g/dL (6.4-8.2); Sodium Level 141 mmol/L (136-145)
== END ==
LOC: LAB.FUTURE 11:07 → LAB 11:08
PROVIDERS: PCP Internal Medicine
DX: M05.79 Rheumatoid arthritis with rheumatoid factor of multiple sites without organ or systems involvement (principal)
CPT/HCPCS: 36415; 80053; 85027; 85652; 86140

== ENCOUNTER → 2020-11-01 12:11 | Outpatient (CLI) | payer OTHER, SELFPAY ==
--- NOTE | 2020-11-01 12:14 | CT_ITS ---
STUDY: CT BRAIN WITHOUT CONTRAST REASON FOR EXAM: Female, 50 years old. HEADACHE RADIATION DOSAGE (If Supplied By Facility): CTDIvol = ( 44.99 ) mGy, DLP = ( 829.85 ) mGycm TECHNIQUE: Transaxial CT imaging of the brain was performed without administration of intravenous contrast material. Individualized dose optimization techniques were used for this CT. COMPARISON: No relevant priors. FINDINGS: Normal soft tissue structures. Normal calvarium. Normal size ventricles and extra-axial spaces for the patient''s age. Normal white matter tracts of the cerebral hemispheres. Normal basal ganglia and thalami. Normal brainstem. Normal cerebellum. There is no intracranial hemorrhage. There are no findings of an acute ischemic infarction. Normal visualized paranasal sinuses. CT/Brain/Head without Contrast IMPRESSION: Normal unenhanced CT scan of the brain. Electronically Signed: Dima Zeng MD at 13:27 EST Tel , Service support ,
== END ==
PROVIDERS: PCP Internal Medicine; Referring Provider Internal Medicine; Visit Provider Internal Medicine
DX: R51.9 Headache, unspecified (principal)
CPT/HCPCS: 70450

== ENCOUNTER → 2020-11-04 11:00 | Outpatient (CLI) | payer OTHER, SELFPAY ==
[2020-11-04 12:19] LABS: Absolute Lymphocyte Count 2.26 X10^3/uL (0.83-4.51); Basophil# 0.04 X10^3/uL; Basophil% 0.6 % (0-1); Eosinophil# 0.16 X10^3/uL; Eosinophils% 2.3 % (0-5); Hematocrit 42.8 % (37-47); Hemoglobin 13.5 g/dL (12.0-15.0); Lymphocyte # 2.26 X10^3/ul (4.0); Lymphocyte % 32.8 % (19-41); Mean Corp Hgb Conc 31.5 g/dL (32-36); Mean Corpuscular Hgb 26.9 pg (27.0-32.0); Mean Corpuscular Volume 85.4 fL (81-99); Mean Platelet Vol. 9.5 fl (6.2-12.0); Monocyte# 0.41 X10^3/uL; NRBC Flagged by Analyzer 0 % (0-5); Neutrophil # 3.99 X10^3/uL (2.7-7.7); Platelet Count 398 K/mm3 (150-450); RBC Distribution Width CV 15.4 % (11.6-14.6); Red Blood Count 5.01 M/mm3 (4.2-5.4); White Blood Count 6.9 K/mm3 (4.4-11.0)
[2020-11-04 12:25] LABS: Erythrocyte Sedimentation Rate 16 mm/hr (0-30)
[2020-11-04 13:28] LABS: AST(SGOT) 23 U/L (15-37); Alanine Aminotransfer ALT/SGPT 43 U/L (13-56); Albumin, Serum 3.7 g/dL (3.2-5.0); Alkaline Phosphatase 73 U/L (45-117); Anion Gap 7 (5-15); BUN 11 mg/dL (7-18); Calcium,Total 9.2 mg/dL (8.5-10.1); Chloride 106 mmol/L (98-107); Creatinine, Serum 0.91 mg/dL (0.55-1.02); EST Glomerular Filtration Rate 69 mL/min (>60); Est Glom Filt Rate - Afr Amer 84 mL/min (>60); Globulin 3.8 g/dL (2.2-4.2); Glucose 85 mg/dL (74-106); Protein, Total 7.5 g/dL (6.4-8.2); Sodium Level 139 mmol/L (136-145)
== END ==
PROVIDERS: PCP Internal Medicine
DX: M05.79 Rheumatoid arthritis with rheumatoid factor of multiple sites without organ or systems involvement (principal)
CPT/HCPCS: 36415; 80053; 85025; 85652; 86140

== ENCOUNTER 2021-01-01 16:07 | Emergency (ER) | payer OTHER, SELFPAY ==
[2021-01-01] VITALS (8 sets, daily range): BP systolic 117–137; BP diastolic 74–92; PULSE 73–90; RESP 16–22; TEMP 36.4; O2SAT 97–100; BMI 36.4
--- NOTE | 2021-01-01 16:34 | EKG12_ITS ---
Test Reason : JAW PAIN Blood Pressure : / mmHG Vent. Rate : 084 BPM Atrial Rate : 084 BPM P-R Int : 158 ms QRS Dur : 096 ms QT Int : 364 ms P-R-T Axes : 040 021 020 degrees QTc Int : 430 ms Normal sinus rhythm Normal ECG Confirmed by EMMA PILLAI, ROBERT ([id number]), development editor NANDINI RIOS ([id number]) on 01/04/2021 8:50:24 AM Referred By: JEREMY Confirmed By:ROBERT CARTER MD
--- NOTE | 2021-01-01 16:35 | EDS_ITS ---
HPI History of Present Illness Chief Complaint: Headache Informant: patient Onset/Context/Timing Onset: Today Context: Gradual Onset Quality: Dull, aching Location: Bilateral jaw Worsened by: Nothing Relieved by: Nothing Narrative Narrative: Patient presents with bilateral jaw pain and headache that began today. Patient states she was working outside when she noticed her head started hurting and having jaw pain bilaterally. Patient states she went inside. Patient states she felt like she was dehydrated so she started drinking some water. Patient checked her blood pressure at home and it was 169/99. Patient rechecked her blood pressure later and it was 132/90. Patient states she called her primary care physician who referred her to the emergency department. [facility] Medical History Anemia Back problem Blood clotting disorder Carpal tunnel syndrome Contraception management Esophageal reflux Fatty liver disease, nonalcoholic Genital herpes GERD (gastroesophageal reflux disease) Heart murmur Hx of venous thrombosis and embolism Hypothyroidism Lupus PCOS (polycystic ovarian syndrome) Polycystic ovaries Positive test for human papillomavirus (HPV) Rheumatoid arthritis Screening for malignant neoplasm of intestine Thyroid disease Home Medications levothyroxine 150 mcg PO DAILY 06/01/13 [History Last Taken 06/10/20 03:00] lovastatin 20 mg PO QHS 06/01/13 [History Last Taken 01/11/17] pantoprazole 40 mg PO QODAY 06/01/13 [History Last Taken 01/11/17] spironolactone 100 mg PO BID 06/01/13 [History Last Taken 01/11/17] ParaGard T 380A 380 square mm intrauterine device 1 device INTRAUTERINE ONCE #1 ea NS 02/26/20 [Clinic Last Taken Unknown] aspirin 325 mg tablet 325 mg PO DAILY 05/02/20 [History Last Taken Unknown] meclizine 25 mg tablet 25 mg PO DAILY 05/02/20 [History Last Taken Unknown] metformin 500 mg tablet 2,500 mg PO DAILY tab 05/02/20 [History Last Taken Unknown] methotrexate sodium 2.5 mg tablet 25 mg PO QWEEK tab 05/02/20 [History Last Taken Unknown] valacyclovir 500 mg tablet 500 mg PO BID #10 tab 05/17/20 [Rx Last Taken Unknown] Allergy/AdvReac Type Severity Reaction Status Date / Time doxycycline AdvReac Vomiting Verified 01/01/21 16:16 hydromorphone [Hydromorphone] AdvReac Nausea/Vom/ Verified 01/01/21 16:16 Diarrhea oxycodone [Oxycodone] AdvReac Nausea/Vom/ Verified 01/01/21 16:16 Diarrhea Family History Father Hypertension Diabetes Cancer CAD (coronary artery disease) Mother Cancer ovarian Muscular dystrophy Brother Hypertension Sister Hypertension Surgical History H/O dilation and curettage Hx of colonoscopy S/P bunionectomy Social History Smoking Status: Never smoker alcohol intake: never substance use type: does not use caffeine: Yes what type of physical activity do you participate in: walking seatbelt use: always do you feel safe at home: Yes 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 Constitutional Constitutional ED: Denies chills or fever(s) Eyes Eyes: Denies blurry vision or change in vision ENT ENT ED: Reports rhinorrhea; Denies sore throat Cardiovascular Cardiovascular: Reports palpitations; Denies chest pain Respiratory/Chest Respiratory/Chest: Denies cough or dyspnea Gastrointestinal Gastrointestinal: Denies nausea or vomiting Genitourinary Genitourinary ED: Denies dysuria or hematuria Musculoskeletal Musculoskeletal: Reports back pain and neck pain Integumentary Denies abscess or rash Neurologic Neurologic: Reports headache(s); Denies paresthesias or weakness Allergic/Immunologic Allergic/Immunologic ED: Denies mouth swelling or urticaria EXAM Physical Exam Const Vital Signs: 01/01/21 16:09 01/01/21 16:11 01/01/21 16:41 Temperature 97.5 F L 97.5 F L Temperature Source Temporal Temporal Pulse Rate 90 89 Respiratory Rate 16 16 Blood Pressure 137/78 H 137/78 H Blood Pressure Mean 97 97 Pulse Ox 100 100 Oxygen Delivery Method Room Air Room Air Room Air 01/01/21 16:50 01/01/21 17:06 01/01/21 17:08 Temperature Temperature Source Pulse Rate 78 83 83 Respiratory Rate 20 H Blood Pressure 122/92 H 120/82 H 125/81 H Blood Pressure Mean 95 Pulse Ox 99 Oxygen Delivery Method Room Air 01/01/21 18:00 05/02/21 19:30 Temperature Temperature Source Pulse Rate 74 74 Respiratory Rate 16 20 H Blood Pressure 117/79 126/74 H Blood Pressure Mean 91 91 Pulse Ox 100 100 Oxygen Delivery Method Room Air Room Air Positive well nourished, well developed and obese General Appearance ED: well developed Nutritional Appearance: obese Neck supple and no JVD Resp normal respiratory effort and clear to auscultation bilaterally Cardio regular rate and regular rhythm GI normal to inspection, nondistended, normoactive bowel sounds and non-tender Palpation: soft Extremity normal to inspection General Extremety ED: Negative for edema General Extremity: Negative for edema Neuro oriented x3, CN's II-XII intact bilaterally and no sensory deficits noted Sensorium / Orientation: alert Motor Exam: strength 5/5 throughout MDM MDM MDM Narrative Medical decision making narrative: Patient was given aspirin here. Patient was given a dose of Zofran. EKG was obtained. On my interpretation, it showed a normal sinus rhythm with a rate of 84. MD interval, QRS interval, and QTc intervals were all normal. [place] was normal. There are no acute ST or T wave changes. Portable 1 view chest x-ray was obtained. On my interpretation, lung adames are clear. There is normal cardiac silhouette. Bony thorax is normal. There is no acute process noted. Radiologist also interpreted the x-ray and agrees. CBC and basic metabolic profile were obtained and were within normal limits. Troponin was normal. A delta troponin was obtained and was negative. Patient was feeling better on reevaluation. Patient wants to go home. Patient was instructed to follow-up with her primary care physician in 5 to 7 days. Patient understood and was agreeable with the plan. All questions were answered. Lab Data Attestation: I reviewed the patient's lab results. Labs: Laboratory Results - last 24 hr 01/01/21 01/01/21 01/01/21 16:26 16:26 19:25 WBC 9.0 RBC 4.69 Hgb 13.2 Hct 40.5 MCV 86.4 MCH 28.1 MCHC 32.6 RDW Std Deviation 49.4 H RDW Coeff of Magdy 16.0 H Plt Count 358 MPV 9.9 Immature Gran % (Auto) 0.300 Neut % (Auto) 67.8 Lymph % (Auto) 23.8 [place] % (Auto) 6.8 Eos % (Auto) 0.9 Baso % (Auto) 0.4 Absolute Neuts (auto) 6.1 Absolute Lymphs (auto) 2.14 Nucleated RBC % 0 Sodium 135 L Potassium 3.8 Chloride 103 Carbon Dioxide 25.0 Anion Gap 7 BUN 20 H Creatinine 1.13 H Estim Creat Clear Calc 64.41 Est GFR (MDRD) Af Amer 65 Est GFR (MDRD) Non-Af 54 L BUN/Creatinine Ratio 17.7 Glucose 92 Calcium 9.6 Troponin I < 0.015 < 0.015 Radiography Chest X-Ray - ED: 1 View, Read by ED Physician, Read by Radiologist and Normal Diagnostic Testing: Radiology Impression Chest X-Ray 01/01/21 16:40 IMPRESSION: Stable, nonacute portable x-ray examination of the chest. Electronically Signed: Jt Santizo MD (Brooks) at 16:59 EDT , Service support , EKG Initial EKG: Attestation: I personally reviewed and interpreted this EKG as follows: Interpretation: Sinus Rhythm (84) and No Acute Injury Pattern Prior EKG tracings: not available for review Discharge Plan Triage Chief Complaint: Headache ED Provider: Macho Mckoy Dx/Rx/DC Orders Clinical Impression: Chest pain radiating to jaw Instructions: ED Chest Pain, Uncertain Cause Prescriptions: No Action copper [ParaGard T 380A] 380 square mm intrauterine device 1 device intrauterine ONCE Qty: 1 RF: 0 aspirin 325 mg tablet 325 mg PO DAILY RF: 0 meclizine 25 mg tablet 25 mg PO DAILY RF: 0 methotrexate sodium 2.5 mg tablet 25 mg PO QWEEK RF: 0 metformin [Glucophage] 500 mg tablet 2,500 mg PO DAILY RF: 0 spironolactone 100 MG tablet 100 mg PO BID RF: 0 pantoprazole 40 MG tablet 40 mg PO QODAY RF: 0 levothyroxine 150 MCG tablet 150 mcg PO DAILY RF: 0 lovastatin 20 MG tablet 20 mg PO QHS RF: 0 valacyclovir [Valtrex] 500 mg tablet 500 mg PO BID Qty: 10 RF: 5 Primary Care Provider: Kiley Parekh Referrals: Kiley Parekh DO [Primary Care Provider] - 3-5 Days Disposition Disposition: Home, self care
--- NOTE | 2021-01-01 16:40 | RAD_ITS ---
STUDY: X-RAY CHEST REASON FOR EXAM: Female, 50 years old. chest pain TECHNIQUE: AP COMPARISON: 02/28/2014 FINDINGS: EKG leads project over the chest. The lungs are clear and expanded. There is no demonstrated pleural abnormality. Normal size heart. Normal mediastinum and javier. Normal visualized pulmonary arteries. Normal visualized aortic arch and descending thoracic aorta. Normal visualized thoracic spine. Normal visualized ribs, clavicles, and shoulders. There is no demonstrated abnormality of the visualized soft tissue structures of the upper abdomen. RAD/Chest 1 View (Portable) IMPRESSION: Stable, nonacute portable x-ray examination of the chest. Electronically Signed: Jt Santizo MD (Brooks) at 16:59 EDT , Service support ,
[2021-01-01] MEDS: Nitroglycerin SL (ED/IMG/CATH) 0.4 MG TABLET SL ×2 (16:50→17:06)
[2021-01-01 16:56] LABS: Absolute Lymphocyte Count 2.14 X10^3/uL (0.83-4.51); Absolute Neutrophil Count 6.1 X10^3/uL (2.0-7.7); Basophil# 0.04 X10^3/uL; Basophil% 0.4 % (0-1); Eosinophil# 0.08 X10^3/uL; Eosinophils% 0.9 % (0-5); Hematocrit 40.5 % (37-47); Hemoglobin 13.2 g/dL (12.0-15.0); Lymphocyte # 2.14 X10^3/ul (0.83-4.51); Lymphocyte % 23.8 % (19-41); Mean Corp Hgb Conc 32.6 g/dL (32-36); Mean Corpuscular Hgb 28.1 pg (27.0-32.0); Mean Corpuscular Volume 86.4 fL (81-99); Mean Platelet Vol. 9.9 fl (6.2-12.0); Monocyte# 0.61 X10^3/uL; Monocyte% 6.8 % (0-10); NRBC Flagged by Analyzer 0 % (0-5); Neutrophil # 6.11 X10^3/uL (2.7-7.7); Neutrophil % 67.8 % (47-70); Platelet Count 358 K/mm3 (150-450); RBC Distribution Width SD 49.4 fl (35.1-43.9); Red Blood Count 4.69 M/mm3 (4.2-5.4)
[2021-01-01] MEDS: Ondansetron 4 MG/2 ML Vial IV (17:00)
[2021-01-01 17:11] LABS: Anion Gap 7 (5-15); BUN 20 mg/dL (7-18); BUN/Creat Ratio 17.7 RATIO (10-20); Calcium,Total 9.6 mg/dL (8.5-10.1); Chloride 103 mmol/L (98-107); Creatinine, Serum 1.13 mg/dL (0.55-1.02); EST Glomerular Filtration Rate 54 mL/min (>60); Est Glom Filt Rate - Afr Amer 65 mL/min (>60); Estimated Creatinine Clearance 64.41 ml/min; Glucose 92 mg/dL (74-106); Potassium 3.8 mmol/L (3.5-5.1); Sodium Level 135 mmol/L (136-145)
== END 2021-01-01 20:34 | disposition home or self-care (01) ==
PROVIDERS: Emergency Provider Emergency Medicine; PCP Internal Medicine
DX: R07.9 Chest pain, unspecified (principal); R68.84 Jaw pain; R51.9 Headache, unspecified; E66.9 Obesity, unspecified; Z68.36 Body mass index [BMI] 36.0-36.9, adult; K21.9 Gastro-esophageal reflux disease without esophagitis; K76.0 Fatty (change of) liver, not elsewhere classified; E03.9 Hypothyroidism, unspecified; E28.2 Polycystic ovarian syndrome; M06.9 Rheumatoid arthritis, unspecified; G56.00 Carpal tunnel syndrome, unspecified upper limb; Z86.2 Personal history of diseases of the blood and blood-forming organs and certain disorders involving the immune mechanism; Z86.718 Personal history of other venous thrombosis and embolism; Z79.84 Long term (current) use of oral hypoglycemic drugs; Z79.82 Long term (current) use of aspirin; Z79.899 Other long term (current) drug therapy
CPT/HCPCS: 71045; 80048; 84484; 85025; 93005; 96374; 99285; A4216; J2405

== ENCOUNTER → 2021-02-07 08:05 | Outpatient (CLI) | payer OTHER, SELFPAY ==
[2021-01-01 16:09] VITALS: BMI 36.4
[2021-02-07 09:10] LABS: Hematocrit 40.8 % (37-47); Hemoglobin 13.1 g/dL (12.0-15.0); Mean Corp Hgb Conc 32.1 g/dL (32-36); Mean Corpuscular Hgb 27.7 pg (27.0-32.0); Mean Corpuscular Volume 86.3 fL (81-99); Mean Platelet Vol. 9.7 fl (6.2-12.0); Platelet Count 402 K/mm3 (150-450); RBC Distribution Width CV 15.9 % (11.6-14.6); RBC Distribution Width SD 49.4 fl (35.1-43.9); Red Blood Count 4.73 M/mm3 (4.2-5.4); White Blood Count 8.2 K/mm3 (4.4-11.0)
[2021-02-07 09:17] LABS: Erythrocyte Sedimentation Rate 18 mm/hr (0-30)
[2021-02-07 09:40] LABS: AST(SGOT) 22 U/L (15-37); Alanine Aminotransfer ALT/SGPT 31 U/L (13-56); Albumin, Serum 3.6 g/dL (3.2-5.0); Alkaline Phosphatase 65 U/L (45-117); Anion Gap 7 (5-15); BUN 17 mg/dL (7-18); BUN/Creat Ratio 18.1 RATIO (10-20); Chloride 107 mmol/L (98-107); Creatinine, Serum 0.94 mg/dL (0.55-1.02); EST Glomerular Filtration Rate 67 mL/min (>60); Est Glom Filt Rate - Afr Amer 81 mL/min (>60); Globulin 3.6 g/dL (2.2-4.2); Glucose 94 mg/dL (74-106); Potassium 4.2 mmol/L (3.5-5.1); Protein, Total 7.2 g/dL (6.4-8.2); Sodium Level 140 mmol/L (136-145)
== END ==
PROVIDERS: PCP Internal Medicine
DX: M05.79 Rheumatoid arthritis with rheumatoid factor of multiple sites without organ or systems involvement (principal)
CPT/HCPCS: 36415; 80053; 85027; 85652

== ENCOUNTER → 2021-03-07 13:37 | Outpatient (CLI) | payer OTHER, SELFPAY ==
[2021-01-01 16:09] VITALS: BMI 36.4
--- NOTE | 2021-03-07 13:56 | VDLE_ITS ---
Reason For Study: pain Procedure LEFT This is a venous duplex using B-mode, color GSV is normal. flow and spectral Doppler. CFV is compressible, spontaneous, phasic, Exam performed in department. competent, and demonstrates normal The exam was abbreviated due to the COVID 19 augmentation. protocol. FV is compressible, spontaneous, phasic, The exam was diagnostic. competent and demonstrates normal A preliminary report was called and/or faxed augmentation. to Dr. Parekh. POP V is compressible, spontaneous, phasic, competent and demonstrates normal augmentation. T/P Trunk is compressible. PTV is compressible. LT PerV is compressible. VL/Venous Duplex US, Unilateral Interpretation Summary Deep veins of the left lower extremity are patent and compressible segmentally. There is no evidence of left lower extremity deep vein thrombosis. Valvular competence appears intac t within the proximal deep venous system on the left . The left great saphenous vein appears patent a nd compressible segmentally. Ordering Physician: Kiley Parekh Performed By: Constantino Champion RVT and Student
== END ==
PROVIDERS: PCP Internal Medicine; Referring Provider Internal Medicine; Visit Provider Internal Medicine
DX: M79.662 Pain in left lower leg (principal)
CPT/HCPCS: 93971

== ENCOUNTER → 2021-03-30 | Outpatient (CLI) | payer OTHER, SELFPAY ==
--- NOTE | 2021-03-30 | EMB_PTH ---
PATIENT: GABRIELA SARAVIA [facility][id number] AGE/SX: 51/F ROOM: RE03/30/[address]: Dr. Zulma España MD : 1970 BED: DIS: 03/30/2021 SPEC #: [id number] RECD: 03/30/21 17:10 STATUS: MIS AMELIAJohn #: [id number] KLARISSA: 03/30/21 00:[address]: Zulma España DEPT: SURGICAL PATHOLOGY RECD BY: Italia Slater ENTERED: 03/31/21 09:07 SP TYPE: ENDOM BX/C ASHLEY DR: Dr. Kiley Parekh, DO Tissues: A - Endometrium, NOS B - POLYP Procedures: Surgery Specimen Level IV HEADER OPERATION: Endometrial biopsy / polyp removal PRE-OP DIAGNOSIS: Abnormal uterine bleeding TISSUE SUBMITTED: A ? Endometrial, B - Polyp MICROSCOPIC DIAGNOSIS A. Endometrium, biopsy: Proliferative endometrium. B. Polyp, biopsy: Fragments of benign endocervical polyp. SJ:elian 04/03/2021 MICROSCOPIC DESCRIPTION Slides are reviewed. GROSS DESCRIPTION A - Received in fixative is one container labeled with the patient's name and designated EMB. The specimen consists of multiple irregular fragments of kurtz mucoid tissue that in aggregate measure 1 x 1 x 0.2 cm. The specimen is totally submitted in one cassette. B - Received in fixative is one container labeled with the patient's name and designated polyp. The specimen consists of multiple polypoid fragments of kurtz soft tissue that in aggregate measure 1.5 x 1 x 0.3 cm. The specimen is totally submitted in one cassette. / SJ:elian 03/31/21 TC:5 [facility]: [id number] x2
[2021-03-30 14:39] VITALS: BMI 36.4
== END | disposition home or self-care (01) ==
LOC: LABSPEC 03-31 12:17
PROVIDERS: PCP Internal Medicine; Visit Provider Obstetrics & Gynecology
DX: N84.0 Polyp of corpus uteri (principal); N93.9 Abnormal uterine and vaginal bleeding, unspecified
CPT/HCPCS: 88305

== ENCOUNTER → 2021-04-03 15:24 | Outpatient (CLI) | payer OTHER, SELFPAY ==
[2021-03-30 14:39] VITALS: BMI 36.4
--- NOTE | 2021-04-03 15:25 | US_ITS ---
STUDY: ULTRASOUND OF THE FEMALE PELVIS - COMPLETE REASON FOR EXAM: Female, 51 years old. aub LMP: TECHNIQUE: Transabdominal and Transvaginal TECHNICAL QUALITY: Adequate. COMPARISON: None. FINDINGS: The uterus is anteverted and is in a midline position. The uterus measures 7.4 x 4.3 x 3.0 cm. There is thickening and decreased echogenicity of the endometrium of the endocervical canal lower uterine segment measuring 12 mm thick worrisome for cervical mass namely carcinoma and clinical correlation is recommended. The endometrium measures 3 mm in thickness, and is hyperechoic. There is no demonstrated endometrial mass. There is no demonstrated myometrial mass. I.U.D. - The patient does have an I.U.D. The right ovary is visualized. The right ovary measures 2.8 x 1.7 x 1.6 cm. There is no right ovarian cyst or ovarian mass. There is no visualized right adnexal mass or complex lesion. There is normal arterial and normal venous vascularity. The left ovary is visualized. The left ovary measures 2.6 x 1.9 x 1.8 cm. There is no left ovarian cyst or ovarian mass. There is no visualized left adnexal mass or complex lesion. There is normal arterial and normal venous vascularity. There is no fluid in the cul-de-sac. The pre void volume of the bladder was ml. The post void volume of the bladder was ml. Polycystic ovary disease: No. US/Transvaginal Non- IMPRESSION: Thickening of the endometrium in the endocervical canal and lower uterine segment worrisome for cervical mass, namely carcinoma and clinical correlation is recommended. Electronically Signed: Devang Pierce MD at 9:56 EDT Tel , Service support ,
== END ==
PROVIDERS: PCP Internal Medicine; Referring Provider Obstetrics & Gynecology; Visit Provider Obstetrics & Gynecology
DX: N93.9 Abnormal uterine and vaginal bleeding, unspecified (principal)
CPT/HCPCS: 76830

== ENCOUNTER → 2021-04-04 09:27 | Outpatient (CLI) | payer OTHER, SELFPAY ==
[2021-03-30 14:39] VITALS: BMI 36.4
[2021-04-04 09:43] LABS: Absolute Lymphocyte Count 1.89 X10^3/uL (0.83-4.51); Absolute Neutrophil Count 4.9 X10^3/uL (2.0-7.7); Basophil# 0.05 X10^3/uL; Basophil% 0.7 % (0-1); Eosinophil# 0.11 X10^3/uL; Eosinophils% 1.5 % (0-5); Hematocrit 42.5 % (37-47); Hemoglobin 13.5 g/dL (12.0-15.0); Lymphocyte # 1.89 X10^3/ul (0.83-4.51); Lymphocyte % 25.2 % (19-41); Mean Corp Hgb Conc 31.8 g/dL (32-36); Monocyte# 0.56 X10^3/uL; Monocyte% 7.5 % (0-10); NRBC Flagged by Analyzer 0 % (0-5); Neutrophil # 4.87 X10^3/uL (2.7-7.7); Platelet Count 405 K/mm3 (150-450); RBC Distribution Width CV 15.8 % (11.6-14.6); RBC Distribution Width SD 49.5 fl (35.1-43.9); Red Blood Count 4.83 M/mm3 (4.2-5.4); White Blood Count 7.5 K/mm3 (4.4-11.0)
[2021-04-04 14:10] LABS: Anion Gap 2 (5-15); BUN 14 mg/dL (7-18); Calcium,Total 8.9 mg/dL (8.5-10.1); Chloride 105 mmol/L (98-107); Creatinine, Serum 0.87 mg/dL (0.55-1.02); EST Glomerular Filtration Rate 73 mL/min (>60); Est Glom Filt Rate - Afr Amer 88 mL/min (>60); Estradiol 18.1 pg/mL; Follicle Stimulating Hormone 22.8 mIU/mL; Glucose 90 mg/dL (74-106); Potassium 4.2 mmol/L (3.5-5.1); Prolactin 7.5 ng/mL; Sodium Level 140 mmol/L (136-145); T4 Free Direct 1.29 ng/dL (0.76-1.46); Thyroid Stim Hormone (TSH) 1.25 uIU/mL (0.358-3.74)
== END ==
PROVIDERS: PCP Internal Medicine; Referring Provider Obstetrics & Gynecology; Visit Provider Obstetrics & Gynecology
DX: N93.9 Abnormal uterine and vaginal bleeding, unspecified (principal)
CPT/HCPCS: 36415; 80048; 82670; 83001; 84146; 84439; 84443; 85025

== ENCOUNTER → 2021-04-14 07:45 | Outpatient (CLI) | payer OTHER, SELFPAY ==
[2021-03-30 14:39] VITALS: BMI 36.4
--- NOTE | 2021-04-14 07:46 | BI_ITS ---
MAMMOGRAPHY - BILATERAL SCREENING REASON FOR EXAM: Female, 51 years old. Routine annual screening examination. PERTINENT HISTORY: Grandmother with breast cancer. Aunt with breast cancer. TECHNIQUE: Digital bilateral breast malick (3D mammographic acquisition) in the CC and MLO projections. 2-D mediolateral oblique (MLO) and craniocaudad (CC) views of both breasts were obtained. CAD: Full Field Digital Mammography with Computer Added Detection was performed. COMPARISON: Comparison is made with prior study dated 03/26/2019 and 09/10/2017. FINDINGS: Breast Composition: There are scattered areas of fibroglandular density. There are no dominant masses or suspicious calcifications. Stable small benign appearing bilateral axillary lymph nodes. No other significant abnormalities are identified. There has been no significant change since the prior study. BI/SCRN MAMM (CAD)W/MALICK BILAT IMPRESSION: Stable bilateral screening mammogram. Yearly follow-up mammogram recommended. (A) ASSESSMENT CATEGORY: BIRADS Category 2: Benign. A letter regarding these results will be sent to the patient by the facility within 30 days. Approximately 10% of breast cancers are not detected by mammography. A normal mammogram should not delay biopsy of a clinically suspicious abnormality. [id number] Electronically Signed: Clinton Jacobsen MD at 9:14 EDT , Service support ,
== END ==
PROVIDERS: PCP Internal Medicine; Visit Provider Obstetrics & Gynecology
DX: Z12.31 Encounter for screening mammogram for malignant neoplasm of breast (principal)
CPT/HCPCS: 77063; 77067

== ENCOUNTER 2021-04-18 12:19 | Day surgery (SDC) | payer OTHER, SELFPAY ==
[2021-03-30 14:39] VITALS: BMI 36.4
--- NOTE | 2021-04-11 11:07 | EKG12_ITS ---
Test Reason : PREOP Blood Pressure : / mmHG Vent. Rate : 059 BPM Atrial Rate : 059 BPM P-R Int : 140 ms QRS Dur : 094 ms QT Int : 416 ms P-R-T Axes : 019 036 018 degrees QTc Int : 411 ms Sinus bradycardia Otherwise normal ECG Confirmed by EMMA PILLAI, ROBERT ([id number]), photographic editor NANDINI RIOS ([id number]) on 04/12/2021 10:45:28 AM Referred By: ARTIE Confirmed By:ROBERT CARTER MD
[2021-04-11 11:17] LABS: Hemoglobin A1c 5.2 % (3.8-5.6)
[2021-04-11 11:34] LABS: ALB/GLOB Ratio 1.1 RATIO (0.9-2.4); AST(SGOT) 29 U/L (15-37); Alanine Aminotransfer ALT/SGPT 42 U/L (13-56); Albumin, Serum 3.9 g/dL (3.2-5.0); Alkaline Phosphatase 55 U/L (45-117); Anion Gap 7 (5-15); BUN 13 mg/dL (7-18); BUN/Creat Ratio 14.5 RATIO (10-20); Calcium,Total 9.1 mg/dL (8.5-10.1); Chloride 103 mmol/L (98-107); EST Glomerular Filtration Rate 70 mL/min (>60); Est Glom Filt Rate - Afr Amer 85 mL/min (>60); Globulin 3.4 g/dL (2.2-4.2); Glucose 90 mg/dL (74-106); Protein, Total 7.3 g/dL (6.4-8.2); Sodium Level 137 mmol/L (136-145)
[2021-04-18] VITALS (7 sets, daily range): BP systolic 100–130; BP diastolic 61–88; PULSE 63–73; RESP 16; TEMP 36.1–36.3; O2SAT 97–100; BMI 36.2
--- NOTE | 2021-04-18 07:35 | PCM.HP.BLA ---
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 Is patient in pain?: No Allergies doxycycline Adverse Reaction (Verified 01/01/21 16:16) Vomiting hydromorphone [Hydromorphone] Adverse Reaction (Verified 01/01/21 16:16) Nausea/Vom/Diarrhea oxycodone [Oxycodone] Adverse Reaction (Verified 01/01/21 16:16) Nausea/Vom/Diarrhea Medications levothyroxine 150 mcg PO DAILY 06/01/13 [History Confirmed 03/30/21] lovastatin 20 mg PO QHS 06/01/13 [History Confirmed 03/30/21] pantoprazole 40 mg PO QODAY 06/01/13 [History Confirmed 03/30/21] spironolactone 100 mg PO BID 06/01/13 [History Confirmed 03/30/21] aspirin 325 mg tablet 325 mg PO DAILY 05/02/20 [History Confirmed 03/30/21] metformin 500 mg tablet 2,500 mg PO DAILY tab 05/02/20 [History Confirmed 03/30/21] methotrexate sodium 2.5 mg tablet 25 mg PO QWEEK tab 05/02/20 [History Confirmed 03/30/21] valacyclovir 500 mg tablet 500 mg PO BID #10 tab 05/17/20 [Rx Confirmed 03/30/21] copper 380 square mm intrauterine device 1 device INTRAUTERINE ONCE 03/30/21 [History Confirmed 03/30/21] venlafaxine 75 mg capsule,extended release 24 hr 75 mg PO DAILY #30 cap 03/30/21 [Rx Confirmed 03/30/21] Is last menstrual period known: No Post menopausal: No Patient : No : No PFSH Medical History (Updated 03/30/21 @ 14:[address] Zulma España MD) Anemia Back problem Blood clotting disorder Carpal tunnel syndrome Contraception management Esophageal reflux Fatty liver disease, nonalcoholic Genital herpes GERD (gastroesophageal reflux disease) Heart murmur Hx of venous thrombosis and embolism Hypothyroidism Lupus PCOS (polycystic ovarian syndrome) Polycystic ovaries Positive test for human papillomavirus (HPV) Rheumatoid arthritis Screening for malignant neoplasm of intestine Thyroid disease Surgical History H/O dilation and curettage Hx of colonoscopy S/P bunionectomy Family History Father Hypertension Diabetes Cancer CAD (coronary artery disease) Mother Cancer ovarian Muscular dystrophy Brother Hypertension Sister Hypertension Social History Smoking Status: Never smoker alcohol intake: never substance use type: does not use caffeine: Yes what type of physical activity do you participate in: walking seatbelt use: always do you feel safe at home: Yes 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 She is under large amounts of stress. she is having anxiety increased and anger, irritability, fatigue, trouble staying asleep. Pregancy History 0 Elective abortions Hx Para Spontaneous abortions Hx # Term Pregnancies Ectopic pregnancies Hx # Pregnancies Multiple births # of living children ROS Const Constitutional: Reports fatigue and weight gain; Denies fever(s), headache(s), increased appetite, poor appetite or weight loss Cardio Card: Denies chest pain Resp Resp: Denies cough or dyspnea GI GI: Reports as per HPI; Denies abdominal pain, constipation, nausea or vomiting : Reports as per HPI; Denies difficulty voiding, dysuria, nipple discharge, urinary frequency, urinary incontinence, urinary hesitancy, urinary urgency, vaginal discharge, vaginal dryness, vaginal odor or vaginal pruritus Skin Skin/Breast: Denies change in hair, breast mass, breast pain, breast skin changes or nipple discharge Exam Const General: cooperative, healthy appearing, comfortable, no acute distress and well developed Nutritional Appearance: average body habitus Orientation: alert HENMT Head: normal to inspection and normocephalic Neck Neck: normal visual inspection and trachea midline Thyroid: thyroid normal Resp Effort & Inspection: normal respiratory effort GI Inspection: normal to inspection and non-distended Palpation: soft and no hepatosplenomegaly General: bladder normal to palpation External Female Exam: normal external appearance and normal appearance of the urethra Urethra: normal appearance of the urethra, normal palpation and no discharge Speculum Exam - Vagina: normal appearance of the vagina and normal vaginal discharge Speculum Exam - Cervix: normal appearance of the cervix (3-4 cm iud strings), lesion and nontender Bimanual Exam- Vagina & Uterus: normal bimanual exam, uterine size normal, bladder normal to palpation, uterine shape normal, No tender, uterine mobility normal, consistency normal, normal palpation and non-tender Bimanual Exam- Adnexa, other: normal adnexae, adnexae mobile, no masses and normal Pelvic Support: normal Skin General: no rashes or lesions noted Office Procedures Endometrial Biopsy Endometrial Biopsy Test: Yes Negative Consent Signed: Yes Time out checklist: patient, procedure, site marked/identified, positioning of patient, supplies available, allergies confirmed and team agrees on procedure tenaculum used: No dilator used: No Details: polyp on cervix twisted off and removed but visible base exenidng up into cavity unable to be completely removed. Cervix prepped with betadine and pipelle inserted into uterus without complication. Specimen obtained and sent to lab for analysis. All instruments removed from vagina without complications. Excellent hemostasis noted. Coding Level of Care Code Off vis,est,level 4 Diagnoses Abnormal uterine bleeding N93.9 PCOS (polycystic ovarian syndrome) E28.2 Blood clotting disorder D68.9 Polycystic ovaries E28.2 CPT Codes Endometrial Biopsy (60524) Assessment and Plan Assessment and Plan (1) Abnormal uterine bleeding: Status: Acute Comment: irregular. Paragard. us ordered, labs. EMB. short course progesterone PRN. Orders: Orders: POC Urine 03/30/21 Basic Metabolic Profile (BMP) 03/30/21 Estradiol 03/30/21 Follicle Stimulating Hormone 03/30/21 Prolactin 03/30/21 T4 Free Direct 03/30/21 Thyroid Stim Hormone (TSH) 03/30/21 CBC W/Diff, Automated 03/30/21 Pelvic (Non ) 03/30/21 Transvaginal Non- 03/30/21 Plan - Dr. Zulma España MD: After discussing the patient's diagnosis and treatment plan options, patient wishes to proceed with surgical management. I have discussed with the patient the risks, benefits, and alternatives of the procedure which include but are not limited to risks of anesthesia, bleeding, infection, possible damage to bowel, bladder, or surrounding vasculature which could lead to additional surgery to evaluate any complications. Patient agrees to procedure and wishes to proceed. ACOG/uptodate references given for additional information regarding procedure. Problem list updated and treatment plans were reviewed with the patient and relevant educational handouts given. See problem list details for specific plan information. (2) PCOS (polycystic ovarian syndrome): Status: Acute (3) Blood clotting disorder: Status: Acute Comment: lupus anticoagulant. (4) Polycystic ovaries: Status: Chronic UPDATE- I have seen the patient and performed any clinically relevant updates to the history and physical exam. Zulma España MD
[2021-04-18 12:33] LABS: Internal QC Validated? YES +Cl - CLEAR BKGD
[2021-04-18 12:36] LABS: Pregnancy, Urine Negative Negative
[2021-04-18] MEDS: Lactated Ringers 1,000 ML 100 ML IV (12:52)
--- NOTE | 2021-04-18 13:38 | PCM.OPRPT ---
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 A weighted speculum was placed in the vagina and the anterior lip of the cervix was grasped with a single-tooth tenaculum. A paracervical block was placed with 1% lidocaine. Cervix was progressively dilated to allow passage of a 5 mm hysteroscope. The lining was fully visualized and noted to have a portion of an endometrial polyp that was removed with curettage after being double check with a repeat visualization by the hysteroscope. Uterine sounded to 7 cm. Curettage was performed and moderate mount of tissue removed, sent to pathology. The Thelma device was opened and the cavity length was found to be 4 cm. Device was inserted into the uterus and balloon inflated and device deployed. Integrity of the cavity was confirmed however the cavity width was below the green zone however the device integrity and initiation process was passed and a 2 minute treatment cycle was completed without complication. Repeat hysteroscopy showed a considerable burn with good success of destruction of the endometrium overall. All instruments were removed from the vagina and excellent hemostasis was noted. Patient was awoken and taken to recovery in stable condition. Grafts/Implants Used: none Complications none Admit VTE Documentation VTE Present on Admission: No VTE Mechan Device Prophylaxis: SCD's Multi Select Codes Urinary/Genital Urinary/Genital CPT Codes: 90097 Thelma/Novasure
--- NOTE | 2021-04-18 13:39 | PCM.DC ---
Discharge Instructions Diet Discharge Diet: No restrictions Activity Discharge Activity: Return to Normal Activity, May Shower and May Take a Tub Bath (after 1 week) May resume sexual activity in: 1-2 weeks Weight Bearing Status: Weight bearing as tolerated Lifting Restrictions: none Dressing / Incision Call your doctor if you observe: Fever of 101 or Higher, Using more than 1 pad per hour, Shortness of breath and Uncontrolled pain Follow Up Care Please Follow Up With: Zulma España MD When: Call [phone] to schedule appointment. Test Results: Test results from this visit will be discussed in further detail at your follow-up appointment, if applicable. Discharge Plan Admission Attending Provider: Zulma España Primary Care Provider: Kiley Parekh Discharge Orders/Prescriptions Prescriptions: No Action aspirin 325 mg tablet 325 mg PO QHS RF: 0 methotrexate sodium 2.5 mg tablet 25 mg PO GARCIA RF: 0 metformin [Glucophage] 500 mg tablet 2,500 mg PO DAILY RF: 0 ParaGard T 380A 380 square mm intrauterine device 1 device intrauterine ONCE RF: 0 spironolactone 100 MG tablet 100 mg PO BID RF: 0 pantoprazole 40 MG tablet 40 mg PO DAILY RF: 0 levothyroxine 150 MCG tablet 150 mcg PO DAILY RF: 0 lovastatin 20 MG tablet 20 mg PO QHS RF: 0 Centrum Silver Women 8 mg iron-400 mcg-300 mcg Tablet 1 tab PO DAILY RF: 0 venlafaxine [Effexor XR] 75 mg capsule,extended release 24hr 75 mg PO DAILY RF: 0 valacyclovir [Valtrex] 500 mg tablet 500 mg PO DAILY RF: 0
--- NOTE | 2021-04-18 13:40 | EMB_PTH ---
PATIENT: GABRIELA SARAVIA [place] [facility] [place][id number] AGE/SX: 51/F ROOM: RE04/18/[address]: Dr. Zulma España MD : 1970 BED: DIS: 04/18/2021 SPEC #: [id number] RECD: 04/18/21 15:16 STATUS: MIS TALAVERA #: [id number] KLARISSA: 04/18/21 13:[address]: Zulma España DEPT: SURGICAL PATHOLOGY RECD BY: Felicity Don ENTERED: 04/19/21 08:49 SP TYPE: ENDOM BX/C ASHLEY DR: Dr. Kiley Parekh DO Tissues: Endometrium, NOS Procedures: Surgery Specimen Level IV HEADER OPERATION: Hysteroscopy, D & C Thelma, polypectomy PRE-OP DIAGNOSIS: Abnormal uterine bleeding TISSUE SUBMITTED: Endometrial curettings MICROSCOPIC DIAGNOSIS Endometrial curettings, D & C and polypectomy: Proliferative endometrium. Polypoid fragments of endometrial tissue, consistent with endometrial polyp with cystic changes. Fragments of benign endocervical mucosa. IVORY:elian 04/20/2021 COMMENT Please make reference to previous specimen ([id number]) endometrium, biopsy with diagnosis of ?proliferative endometrium? and polyp, biopsy with diagnosis of ?fragments of benign endocervical polyp.? MICROSCOPIC DESCRIPTION Slides are reviewed. GROSS DESCRIPTION Received in fixative is one container labeled with the patient's name and designated endometrial curettings. The specimen consists of multiple fragments of hemorrhagic soft tissue mixed with mucoid tissue that in aggregate measure 5 x 3 x 0.3 cm. The specimen is totally submitted in two cassettes. / IVORY:elian 04/19/21 TC:5 CPT: 64771
[2021-04-18] MEDS: Lidocaine 1% (20 ml mdv) 20 ML Vial (14:00)
== END 2021-04-18 15:47 | disposition home or self-care (01) ==
LOC: SDC 12:20 → AC 12:20
PROVIDERS: Anesthesiology; PCP Internal Medicine; Referring Provider Obstetrics & Gynecology; Visit Provider Obstetrics & Gynecology
PROC: 0U5B8ZZ Destruction of Endometrium, Via Natural or Artificial Opening Endoscopic (ICD-10-PCS; CPT 58558; principal; 2021-04-18 13:25)
DX: N93.9 Abnormal uterine and vaginal bleeding, unspecified (principal); D68.9 Coagulation defect, unspecified; Z98.890 Other specified postprocedural states; G56.00 Carpal tunnel syndrome, unspecified upper limb; K21.9 Gastro-esophageal reflux disease without esophagitis; E03.9 Hypothyroidism, unspecified; E28.2 Polycystic ovarian syndrome; F41.9 Anxiety disorder, unspecified; K76.0 Fatty (change of) liver, not elsewhere classified; M06.9 Rheumatoid arthritis, unspecified; M32.9 Systemic lupus erythematosus, unspecified; Z86.2 Personal history of diseases of the blood and blood-forming organs and certain disorders involving the immune mechanism; Z79.82 Long term (current) use of aspirin; Z79.84 Long term (current) use of oral hypoglycemic drugs; Z79.899 Other long term (current) drug therapy
CPT/HCPCS: 00952; 58558; 36415; 80053; 81025; 83036; 86850; 86900; 86901; 88305; 93005; J7120; J2405

== ENCOUNTER → 2021-05-01 | Outpatient (CLI) | payer OTHER, SELFPAY ==
[2021-05-03 16:32] LABS: HPV APTIMA, High Risk Negative (Negative)
== END | disposition home or self-care (01) ==
LOC: LABSPEC 12:02
PROVIDERS: PCP Internal Medicine; Referring Provider Nurse Practitioner Women's Health; Visit Provider Nurse Practitioner Women's Health
DX: Z12.4 Encounter for screening for malignant neoplasm of cervix (principal)
CPT/HCPCS: 87624; 88175; G0145

== ENCOUNTER → 2021-07-04 08:36 | Outpatient (CLI) | payer OTHER, SELFPAY ==
[2021-07-04 10:39] LABS: Absolute Lymphocyte Count 1.87 X10^3/uL (0.83-4.51); Absolute Neutrophil Count 4.1 X10^3/uL (2.0-7.7); Basophil# 0.03 X10^3/uL; Basophil% 0.5 % (0-1); Eosinophil# 0.14 X10^3/uL; Eosinophils% 2.1 % (0-5); Hemoglobin 13.2 g/dL (12.0-15.0); Lymphocyte # 1.87 X10^3/ul (0.83-4.51); Lymphocyte % 28.3 % (19-41); Mean Corp Hgb Conc 32.2 g/dL (32-36); Mean Corpuscular Hgb 28.3 pg (27.0-32.0); Mean Platelet Vol. 9.5 fl (6.2-12.0); Monocyte# 0.49 X10^3/uL; Monocyte% 7.4 % (0-10); NRBC Flagged by Analyzer 0 % (0-5); Neutrophil # 4.06 X10^3/uL (2.7-7.7); Neutrophil % 61.5 % (47-70); Platelet Count 388 K/mm3 (150-450); RBC Distribution Width CV 16.1 % (11.6-14.6); RBC Distribution Width SD 51.5 fl (35.1-43.9); Red Blood Count 4.66 M/mm3 (4.2-5.4); White Blood Count 6.6 K/mm3 (4.4-11.0)
[2021-07-04 10:49] LABS: Erythrocyte Sedimentation Rate 17 mm/hr (0-30)
[2021-07-04 11:11] LABS: ALB/GLOB Ratio 0.9 RATIO (0.9-2.4); AST(SGOT) 32 U/L (15-37); Alanine Aminotransfer ALT/SGPT 50 U/L (13-56); Albumin, Serum 3.6 g/dL (3.2-5.0); Alkaline Phosphatase 67 U/L (45-117); Anion Gap 6 (5-15); BUN 14 mg/dL (7-18); BUN/Creat Ratio 15.3 RATIO (10-20); Calcium,Total 9.1 mg/dL (8.5-10.1); Chloride 105 mmol/L (98-107); Creatinine, Serum 0.91 mg/dL (0.55-1.02); EST Glomerular Filtration Rate 69 mL/min (>60); Est Glom Filt Rate - Afr Amer 83 mL/min (>60); Globulin 3.9 g/dL (2.2-4.2); Glucose 88 mg/dL (74-106); Potassium 4.1 mmol/L (3.5-5.1); Protein, Total 7.5 g/dL (6.4-8.2); Sodium Level 139 mmol/L (136-145)
== END ==
PROVIDERS: PCP Internal Medicine
DX: M05.79 Rheumatoid arthritis with rheumatoid factor of multiple sites without organ or systems involvement (principal)
CPT/HCPCS: 36415; 80053; 85025; 85652; 86140

== ENCOUNTER 2021-10-09 14:55 | Outpatient (CLI) | payer OTHER, SELFPAY | END 2021-10-09 23:59 | disposition home or self-care (01) | LOC: LABSPEC 14:57 | PROVIDERS: PCP Internal Medicine; Visit Provider Internal Medicine | DX: J02.9 Acute pharyngitis, unspecified (principal) | CPT/HCPCS: 87070 ==

== ENCOUNTER 2021-11-03 15:59 | Outpatient (CLI) | payer OTHER, SELFPAY ==
--- NOTE | 2021-11-03 16:01 | RAD_ITS ---
History: Knee inj pain Right knee 4 views: Findings: No acute fracture, subluxation or joint effusion. Mild patellar spurring. No joint space narrowing or soft tissue abnormality. IMPRESSION: No acute abnormality. at 1629 Reported and signed by: Warren De La Cruz MD Electronically Signed: Warren De La Cruz MD at 16:28 EST , RAD/Knee 4 or More Views
== END 2021-11-03 23:59 | disposition home or self-care (01) ==
LOC: MTRAD 16:01
PROVIDERS: PCP Internal Medicine; Referring Provider Physician Assistant Surgical; Visit Provider Physician Assistant Surgical
DX: S86.911A Strain of unspecified muscle(s) and tendon(s) at lower leg level, right leg, initial encounter (principal); M25.561 Pain in right knee
CPT/HCPCS: 73564

== ENCOUNTER → 2022-02-16 | Outpatient (CLI) | payer OTHER, SELFPAY ==
[2022-02-16 10:16] LABS: Absolute Lymphocyte Count 2.07 X10^3/uL (0.83-4.51); Absolute Neutrophil Count 5.4 X10^3/uL (2.0-7.7); Basophil# 0.06 X10^3/uL; Basophil% 0.7 % (0-1); Eosinophil# 0.24 X10^3/uL; Eosinophils% 2.9 % (0-5); Hematocrit 39.5 % (37-47); Hemoglobin 12.5 g/dL (12.0-15.0); Lymphocyte # 2.07 X10^3/ul (0.83-4.51); Lymphocyte % 25.4 % (19-41); Mean Corp Hgb Conc 31.6 g/dL (32-36); Mean Corpuscular Hgb 28.2 pg (27.0-32.0); Monocyte# 0.37 X10^3/uL; Monocyte% 4.5 % (0-10); NRBC Flagged by Analyzer 0 % (0-5); Neutrophil # 5.36 X10^3/uL (2.7-7.7); Platelet Count 355 K/mm3 (150-450); RBC Distribution Width CV 16.1 % (11.6-14.6); RBC Distribution Width SD 51.9 fl (35.1-43.9); Red Blood Count 4.44 M/mm3 (4.2-5.4); White Blood Count 8.1 K/mm3 (4.4-11.0)
[2022-02-16 10:20] LABS: AST(SGOT) 30 U/L (15-37); Alanine Aminotransfer ALT/SGPT 60 U/L (13-56); Albumin, Serum 3.3 g/dL (3.2-5.0); Alkaline Phosphatase 59 U/L (45-117); Bilirubin, Direct 0.09 mg/dL (0.00-0.30); Creatinine, Serum 0.79 mg/dL (0.55-1.02); EST Glomerular Filtration Rate 82 mL/min (>60); Est Glom Filt Rate - Afr Amer 99 mL/min (>60); Globulin 3.3 g/dL (2.2-4.2); Protein, Total 6.6 g/dL (6.4-8.2)
[2022-02-16 10:22] LABS: Erythrocyte Sedimentation Rate 10 mm/hr (0-30)
== END | disposition home or self-care (01) ==
LOC: MTLAB 07:22
PROVIDERS: PCP Internal Medicine; Referring Provider Internal Medicine Rheumatology; Visit Provider Internal Medicine Rheumatology
DX: M06.09 Rheumatoid arthritis without rheumatoid factor, multiple sites (principal); Z79.899 Other long term (current) drug therapy
CPT/HCPCS: 36415; 80076; 82565; 85025; 85652; 86140

== ENCOUNTER → 2022-03-24 | Outpatient (CLI) | payer OTHER, SELFPAY ==
[2022-03-24 08:15] LABS: AST(SGOT) 19 U/L (15-37); Alanine Aminotransfer ALT/SGPT 39 U/L (13-56); Albumin, Serum 3.3 g/dL (3.2-5.0); Alkaline Phosphatase 60 U/L (45-117); Bilirubin, Direct 0.06 mg/dL (0.00-0.30); Globulin 3.4 g/dL (2.2-4.2); Protein, Total 6.7 g/dL (6.4-8.2)
== END | disposition home or self-care (01) ==
LOC: LAB 06:55
PROVIDERS: PCP Internal Medicine; Visit Provider Internal Medicine Rheumatology
DX: R74.8 Abnormal levels of other serum enzymes (principal)
CPT/HCPCS: 36415; 80076

== ENCOUNTER → 2022-05-11 | Outpatient (CLI) | payer OTHER, SELFPAY ==
[2022-05-11 10:34] LABS: Erythrocyte Sedimentation Rate 18 mm/hr (0-30)
[2022-05-11 10:39] LABS: Basophil# 0.05 X10^3/uL; Basophil% 0.6 % (0-1); Eosinophil# 0.23 X10^3/uL; Eosinophils% 2.9 % (0-5); Hematocrit 39.4 % (37-47); Hemoglobin 12.5 g/dL (12.0-15.0); Lymphocyte % 26.5 % (19-41); Mean Corp Hgb Conc 31.7 g/dL (32-36); Mean Corpuscular Volume 88.1 fL (81-99); Mean Platelet Vol. 9.5 fl (6.2-12.0); Monocyte# 0.55 X10^3/uL; Monocyte% 6.9 % (0-10); NRBC Flagged by Analyzer 0 % (0-5); Neutrophil # 4.96 X10^3/uL (2.7-7.7); Neutrophil % 62.6 % (47-70); Platelet Count 386 K/mm3 (150-450); RBC Distribution Width CV 16.4 % (11.6-14.6); RBC Distribution Width SD 51.8 fl (35.1-43.9); Red Blood Count 4.47 M/mm3 (4.2-5.4); White Blood Count 7.9 K/mm3 (4.4-11.0)
[2022-05-11 11:05] LABS: AST(SGOT) 22 U/L (15-37); Alanine Aminotransfer ALT/SGPT 53 U/L (13-56); Albumin, Serum 3.4 g/dL (3.2-5.0); Alkaline Phosphatase 67 U/L (45-117); Bilirubin, Direct 0.07 mg/dL (0.00-0.30); Creatinine, Serum 0.92 mg/dL (0.55-1.02); EST Glomerular Filtration Rate 68 mL/min (>60); Est Glom Filt Rate - Afr Amer 82 mL/min (>60); Globulin 3.5 g/dL (2.2-4.2); Protein, Total 6.9 g/dL (6.4-8.2)
== END | disposition home or self-care (01) ==
LOC: MTLAB 09:04
PROVIDERS: PCP Internal Medicine; Referring Provider Internal Medicine Rheumatology; Visit Provider Internal Medicine Rheumatology
DX: M06.09 Rheumatoid arthritis without rheumatoid factor, multiple sites (principal); Z79.899 Other long term (current) drug therapy
CPT/HCPCS: 36415; 80076; 82565; 85025; 85652; 86140

== ENCOUNTER → 2022-08-10 | Outpatient (CLI) | payer OTHER, SELFPAY ==
[2022-08-10 11:16] LABS: Absolute Lymphocyte Count 2.15 X10^3/uL (0.83-4.51); Absolute Neutrophil Count 5.2 X10^3/uL (2.0-7.7); Basophil# 0.05 X10^3/uL; Basophil% 0.6 % (0-1); Eosinophils% 2.4 % (0-5); Erythrocyte Sedimentation Rate 17 mm/hr (0-30); Hematocrit 40.4 % (37-47); Hemoglobin 12.7 g/dL (12.0-15.0); Lymphocyte # 2.15 X10^3/ul (0.83-4.51); Lymphocyte % 26.2 % (19-41); Mean Corp Hgb Conc 31.4 g/dL (32-36); Mean Corpuscular Volume 85.8 fL (81-99); Mean Platelet Vol. 9.6 fl (6.2-12.0); Monocyte# 0.57 X10^3/uL; NRBC Flagged by Analyzer 0 % (0-5); Neutrophil % 63.4 % (47-70); Platelet Count 405 K/mm3 (150-450); RBC Distribution Width CV 16.2 % (11.6-14.6); Red Blood Count 4.71 M/mm3 (4.2-5.4); White Blood Count 8.2 K/mm3 (4.4-11.0)
[2022-08-10 11:36] LABS: AST(SGOT) 18 U/L (15-37); Alanine Aminotransfer ALT/SGPT 44 U/L (13-56); Albumin, Serum 3.8 g/dL (3.2-5.0); Alkaline Phosphatase 69 U/L (45-117); Creatinine, Serum 1.11 mg/dL (0.55-1.02); EST Glomerular Filtration Rate 55 mL/min (>60); Est Glom Filt Rate - Afr Amer 66 mL/min (>60); Globulin 3.5 g/dL (2.2-4.2); Protein, Total 7.3 g/dL (6.4-8.2)
== END | disposition home or self-care (01) ==
LOC: LAB 10:37
PROVIDERS: PCP Internal Medicine; Referring Provider Internal Medicine Rheumatology; Visit Provider Internal Medicine Rheumatology
DX: Z79.899 Other long term (current) drug therapy (principal); M06.09 Rheumatoid arthritis without rheumatoid factor, multiple sites
CPT/HCPCS: 36415; 80076; 82565; 85025; 85652; 86140

== ENCOUNTER → 2022-09-25 | Outpatient (CLI) | payer OTHER, SELFPAY ==
--- NOTE | 2022-09-25 07:41 | BI_ITS ---
MAMMOGRAPHY - BILATERAL SCREENING REASON FOR EXAM: Female, 52 years old. Routine annual screening examination. PERTINENT HISTORY: Grandmother with breast cancer. Aunt with breast cancer. TECHNIQUE: Digital bilateral breast malick (3D mammographic acquisition) in the CC and MLO projections. 2-D mediolateral oblique (MLO) and craniocaudad (CC) views of both breasts were obtained. CAD: Full Field Digital Mammography with Computer Added Detection was performed. COMPARISON: Comparison is made with prior study 04/14/2021 and 03/26/2019. FINDINGS: Breast Composition: The breasts are almost entirely fatty. There are no dominant masses or suspicious calcifications. Stable appearance of the fat-containing lymph nodes in the axillary region. No other significant abnormalities are identified. There has been no significant change since the prior study. BI/SCRN MAMM (CAD)W/MALICK BILAT IMPRESSION: Stable bilateral screening mammogram. Yearly follow-up mammogram recommended. (A) ASSESSMENT CATEGORY: BIRADS Category 2: Benign. A letter regarding these results will be sent to the patient by the facility within 30 days. Approximately 10% of breast cancers are not detected by mammography. A normal mammogram should not delay biopsy of a clinically suspicious abnormality. [id number] Electronically Signed: Clinton Jacobsen MD at 9:04 EST ,
== END | disposition home or self-care (01) ==
LOC: OPBI 07:39
PROVIDERS: PCP Internal Medicine; Referring Provider Obstetrics & Gynecology; Visit Provider Obstetrics & Gynecology
DX: Z12.31 Encounter for screening mammogram for malignant neoplasm of breast (principal); Z80.3 Family history of malignant neoplasm of breast
CPT/HCPCS: 77063; 77067

== ENCOUNTER → 2022-11-07 | Outpatient (CLI) | payer OTHER, SELFPAY ==
[2022-11-07 07:18] LABS: Erythrocyte Sedimentation Rate 16 mm/hr (0-30)
[2022-11-07 07:20] LABS: Absolute Lymphocyte Count 1.76 X10^3/uL (0.83-4.51); Absolute Neutrophil Count 4.9 X10^3/uL (2.0-7.7); Basophil# 0.05 X10^3/uL; Basophil% 0.7 % (0-1); Eosinophil# 0.14 X10^3/uL; Eosinophils% 1.9 % (0-5); Hematocrit 40.5 % (37-47); Lymphocyte # 1.76 X10^3/ul (0.83-4.51); Lymphocyte % 24.3 % (19-41); Mean Corp Hgb Conc 32.1 g/dL (32-36); Mean Corpuscular Hgb 27.1 pg (27.0-32.0); Mean Corpuscular Volume 84.6 fL (81-99); Mean Platelet Vol. 9.6 fl (6.2-12.0); Monocyte# 0.35 X10^3/uL; Monocyte% 4.8 % (0-10); NRBC Flagged by Analyzer 0 % (0-5); Neutrophil # 4.91 X10^3/uL (2.7-7.7); Platelet Count 423 K/mm3 (150-450); RBC Distribution Width CV 17.4 % (11.6-14.6); RBC Distribution Width SD 52.9 fl (35.1-43.9); Red Blood Count 4.79 M/mm3 (4.2-5.4); White Blood Count 7.2 K/mm3 (4.4-11.0)
[2022-11-07 07:37] LABS: AST(SGOT) 43 U/L (15-37); Alanine Aminotransfer ALT/SGPT 77 U/L (13-56); Albumin, Serum 3.7 g/dL (3.2-5.0); Alkaline Phosphatase 71 U/L (45-117); Bilirubin, Direct 0.17 mg/dL (0.00-0.30); EST Glomerular Filtration Rate 55 mL/min (>60); Est Glom Filt Rate - Afr Amer 67 mL/min (>60); Globulin 3.5 g/dL (2.2-4.2); Protein, Total 7.2 g/dL (6.4-8.2)
[2022-11-08 19:46] LABS: Thyroglobulin Antibody < 1.0 IU/mL (0.0-0.9); Thyroid Peroxidase AB 12 IU/mL (0-34)
== END | disposition home or self-care (01) ==
LOC: LAB 06:29
PROVIDERS: PCP Internal Medicine; Referring Provider Internal Medicine Rheumatology; Visit Provider Internal Medicine Rheumatology
DX: M06.09 Rheumatoid arthritis without rheumatoid factor, multiple sites (principal); Z79.899 Other long term (current) drug therapy; R76.0 Raised antibody titer
CPT/HCPCS: 36415; 80076; 82565; 85025; 85652; 86140; 86376; 86800

== ENCOUNTER → 2022-12-11 | Outpatient (CLI) | payer OTHER, SELFPAY | END | disposition home or self-care (01) | LOC: LABSPEC 10:07 | PROVIDERS: PCP Internal Medicine; Referring Provider Nurse Practitioner Family; Visit Provider Nurse Practitioner Family | DX: J02.9 Acute pharyngitis, unspecified (principal) | CPT/HCPCS: 87070 ==

== ENCOUNTER → 2022-12-13 | Outpatient (CLI) | payer OTHER, SELFPAY ==
[2022-12-20 13:07] LABS: HPV APTIMA, High Risk Negative (Negative)
== END | disposition home or self-care (01) ==
LOC: LABSPEC 14:01
PROVIDERS: PCP Internal Medicine; Referring Provider Obstetrics & Gynecology; Visit Provider Obstetrics & Gynecology
DX: Z01.419 Encounter for gynecological examination (general) (routine) without abnormal findings (principal)
CPT/HCPCS: 87624; 88175; G0145

== ENCOUNTER → 2022-12-31 | Outpatient (CLI) | payer OTHER, SELFPAY ==
--- NOTE | 2022-12-31 15:10 | VDLE_ITS ---
Reason For Study: LLE PAIN Procedure LEFT This is a venous duplex using B-mode, color CFV is compressible, spontaneous, phasic, flow and spectral Doppler. competent, and demonstrates normal Exam performed in department. augmentation. A preliminary report was called and/or faxed FV is compressible, spontaneous, phasic, to Marina HA @ DR. Parekh's @ 3:30 pm. competent and demonstrates normal Marina will call patient today with augmentation. instructions. T/P Trunk is compressible. PTV is compressible. LT PerV is compressible. POP V is DILATED & NONCOMPRESSIBLE. GSV is DILATED & NONCOMPRESSIBLE from the knee to mid thigh. The balance of GSV is compressible. VL/Venous Duplex US, Unilateral Interpretation Summary Acute deep vein thrombosis is noted in the left popliteal vein. Acute superficial vein thrombosis is noted in the left greater saphenous vein Ordering Physician: Kiley Parekh Referring Physician: Kiley Parekh Performed By: Alessia Mcmullen, VINCENT, RVT
== END | disposition home or self-care (01) ==
LOC: CVS 15:08
PROVIDERS: PCP Internal Medicine; Referring Provider Internal Medicine; Visit Provider Internal Medicine
DX: M79.605 Pain in left leg (principal)
CPT/HCPCS: 93971

== ENCOUNTER → 2023-01-02 | Outpatient (CLI) | payer OTHER, SELFPAY ==
--- NOTE | 2023-01-02 10:10 | CT_ITS ---
STUDY: CTA CHEST REASON FOR EXAM: Female, 52 years old. TESTED + FOR DVT, CHEST PRESSURE RADIATION DOSAGE (If Supplied By Facility): CTDIvol = ( 13.85 ) mGy, DLP = ( 576.26 ) mGycm TECHNIQUE: The examination was performed with the intravenous administration of IV 100mL Isovue-370. Post-processing of the angiographic images was performed, with multiplanar reformation and 3D reconstruction. Individualized dose optimization techniques were used for this CT. COMPARISON: None. FINDINGS: There are multiple bilateral intraluminal filling defects in both right and left pulmonary arteries and the major branches involving upper and lower lobes. Normal thoracic aorta and visualized great vessels. There is no demonstrated aortic dissection. Normal heart and pericardium. Normal mediastinum. Normal hilar regions. Normal visualized trachea and bronchi. The lungs are well expanded. Normal pulmonary parenchyma. Normal pleura. Normal chest wall structures. Normal osseous structures. Normal visualized upper abdomen. CT/CTA Chest W/WO Contrast IMPRESSION: Multiple bilateral pulmonary emboli. Electronically Signed: Clinton Jacobsen MD at 11:17 EDT ,
[2023-01-02 10:31] LABS: EGFR FINGERSTICK > 60.0000 mL/min (>60)
== END | disposition home or self-care (01) ==
LOC: CT 09:36
PROVIDERS: PCP Internal Medicine; Referring Provider Internal Medicine; Visit Provider Internal Medicine
DX: R07.9 Chest pain, unspecified (principal)
CPT/HCPCS: 71275; Q9967; A4216

== ENCOUNTER → 2023-01-07 | Outpatient (CLI) | payer OTHER, SELFPAY ==
[2023-01-07 10:51] LABS: AST(SGOT) 25 U/L (15-37); Alanine Aminotransfer ALT/SGPT 44 U/L (13-56); Albumin, Serum 3.6 g/dL (3.2-5.0); Alkaline Phosphatase 73 U/L (45-117); Bilirubin, Direct 0.12 mg/dL (0.00-0.30); Globulin 3.7 g/dL (2.2-4.2); Protein, Total 7.3 g/dL (6.4-8.2)
[2023-01-07 10:59] LABS: Estradiol 21.3 pg/mL; Follicle Stimulating Hormone 38.1 mIU/mL
== END | disposition home or self-care (01) ==
LOC: MTLAB 08:50
PROVIDERS: Obstetrics & Gynecology; PCP Internal Medicine; Referring Provider Internal Medicine Rheumatology; Visit Provider Internal Medicine Rheumatology
DX: R74.8 Abnormal levels of other serum enzymes (principal); N95.1 Menopausal and female climacteric states
CPT/HCPCS: 36415; 80076; 82670; 83001

== ENCOUNTER → 2023-02-13 | Outpatient (CLI) | payer OTHER, SELFPAY ==
[2023-02-13 13:41] LABS: Absolute Lymphocyte Count 2.57 X10^3/uL (0.83-4.51); Absolute Neutrophil Count 4.9 X10^3/uL (2.0-7.7); Basophil# 0.05 X10^3/uL; Basophil% 0.6 % (0-1); Eosinophil# 0.22 X10^3/uL; Eosinophils% 2.7 % (0-5); Hematocrit 38.3 % (37-47); Hemoglobin 12.3 g/dL (12.0-15.0); Lymphocyte # 2.57 X10^3/ul (0.83-4.51); Lymphocyte % 31.5 % (19-41); Mean Corp Hgb Conc 32.1 g/dL (32-36); Mean Corpuscular Hgb 26.7 pg (27.0-32.0); Mean Corpuscular Volume 83.3 fL (81-99); Mean Platelet Vol. 9.8 fl (6.2-12.0); Monocyte# 0.43 X10^3/uL; Monocyte% 5.3 % (0-10); NRBC Flagged by Analyzer 0 % (0-5); Neutrophil # 4.87 X10^3/uL (2.7-7.7); Neutrophil % 59.8 % (47-70); Platelet Count 421 K/mm3 (150-450); RBC Distribution Width CV 16.6 % (11.6-14.6); RBC Distribution Width SD 49.6 fl (35.1-43.9); White Blood Count 8.2 K/mm3 (4.4-11.0)
[2023-02-13 13:57] LABS: Erythrocyte Sedimentation Rate 16 mm/hr (0-30)
[2023-02-13 14:08] LABS: AST(SGOT) 31 U/L (15-37); Alanine Aminotransfer ALT/SGPT 52 U/L (13-56); Albumin, Serum 3.6 g/dL (3.2-5.0); Alkaline Phosphatase 68 U/L (45-117); Bilirubin, Direct 0.14 mg/dL (0.00-0.30); Creatinine, Serum 0.87 mg/dL (0.55-1.02); EST Glomerular Filtration Rate 73 mL/min (>60); Est Glom Filt Rate - Afr Amer 88 mL/min (>60); Globulin 3.6 g/dL (2.2-4.2); Protein, Total 7.2 g/dL (6.4-8.2)
== END | disposition home or self-care (01) ==
LOC: LAB 12:50
PROVIDERS: PCP Internal Medicine; Referring Provider Internal Medicine Rheumatology; Visit Provider Internal Medicine Rheumatology
DX: M06.09 Rheumatoid arthritis without rheumatoid factor, multiple sites (principal); Z79.899 Other long term (current) drug therapy
CPT/HCPCS: 36415; 80076; 82565; 85025; 85652; 86140

== ENCOUNTER → 2023-02-22 | Outpatient (CLI) | payer OTHER, SELFPAY | END | disposition home or self-care (01) | LOC: LABSPEC 14:15 | PROVIDERS: PCP Internal Medicine; Referring Provider Internal Medicine; Visit Provider Internal Medicine | DX: R19.7 Diarrhea, unspecified (principal) | CPT/HCPCS: 82274; 83630; 87177; 87209; 87493; 87506 ==

== ENCOUNTER → 2023-02-25 | Outpatient (CLI) | payer OTHER, SELFPAY | END | disposition home or self-care (01) | LOC: SL 20:21 | PROVIDERS: PCP Internal Medicine; Referring Provider Internal Medicine; Visit Provider Internal Medicine | DX: R06.81 Apnea, not elsewhere classified (principal); R06.83 Snoring; R53.83 Other fatigue | CPT/HCPCS: 95810; 95811 ==

== ENCOUNTER → 2023-05-14 | Outpatient (CLI) | payer OTHER, SELFPAY ==
[2023-05-14 17:52] LABS: Erythrocyte Sedimentation Rate 18 mm/hr (0-30)
[2023-05-14 17:56] LABS: Absolute Neutrophil Count 4.3 X10^3/uL (2.0-7.7); Basophil# 0.05 X10^3/uL; Basophil% 0.7 % (0-1); Eosinophil# 0.17 X10^3/uL; Eosinophils% 2.4 % (0-5); Hematocrit 35.9 % (37-47); Hemoglobin 10.8 g/dL (12.0-15.0); Lymphocyte % 31.8 % (19-41); Mean Corp Hgb Conc 30.1 g/dL (32-36); Mean Corpuscular Hgb 25.2 pg (27.0-32.0); Mean Corpuscular Volume 83.9 fL (81-99); Mean Platelet Vol. 9.7 fl (6.2-12.0); Monocyte# 0.37 X10^3/uL; Monocyte% 5.1 % (0-10); NRBC Flagged by Analyzer 0 % (0-5); Neutrophil # 4.32 X10^3/uL (2.7-7.7); Neutrophil % 59.7 % (47-70); Platelet Count 386 K/mm3 (150-450); RBC Distribution Width SD 54.6 fl (35.1-43.9); Red Blood Count 4.28 M/mm3 (4.2-5.4); White Blood Count 7.2 K/mm3 (4.4-11.0)
[2023-05-14 18:03] LABS: AST(SGOT) 29 U/L (15-37); Alanine Aminotransfer ALT/SGPT 53 U/L (13-56); Albumin, Serum 3.4 g/dL (3.2-5.0); Alkaline Phosphatase 69 U/L (45-117); EST Glomerular Filtration Rate 62 mL/min (>60); Est Glom Filt Rate - Afr Amer 75 mL/min (>60); Globulin 3.6 g/dL (2.2-4.2)
== END | disposition home or self-care (01) ==
LOC: LAB 17:02
PROVIDERS: PCP Internal Medicine; Referring Provider Internal Medicine Rheumatology; Visit Provider Internal Medicine Rheumatology
DX: M06.09 Rheumatoid arthritis without rheumatoid factor, multiple sites (principal); Z79.899 Other long term (current) drug therapy
CPT/HCPCS: 36415; 80076; 82565; 85025; 85652; 86140

== ENCOUNTER → 2023-05-28 | Outpatient (CLI) | payer OTHER, SELFPAY ==
[2023-05-28 10:08] LABS: Absolute Lymphocyte Count 1.99 X10^3/uL (0.83-4.51); Absolute Neutrophil Count 5.2 X10^3/uL (2.0-7.7); Basophil# 0.06 X10^3/uL; Basophil% 0.8 % (0-1); Eosinophil# 0.14 X10^3/uL; Eosinophils% 1.8 % (0-5); Hematocrit 36.7 % (37-47); Hemoglobin 11.8 g/dL (12.0-15.0); Lymphocyte # 1.99 X10^3/ul (0.83-4.51); Lymphocyte % 25.2 % (19-41); Mean Corp Hgb Conc 32.2 g/dL (32-36); Mean Corpuscular Hgb 26.6 pg (27.0-32.0); Mean Corpuscular Volume 82.7 fL (81-99); Mean Platelet Vol. 9.4 fl (6.2-12.0); Monocyte# 0.52 X10^3/uL; Monocyte% 6.6 % (0-10); NRBC Flagged by Analyzer 0 % (0-5); Neutrophil # 5.17 X10^3/uL (2.7-7.7); Neutrophil % 65.3 % (47-70); Platelet Count 376 K/mm3 (150-450); RBC Distribution Width CV 18.5 % (11.6-14.6); RBC Distribution Width SD 54.4 fl (35.1-43.9); RET-HE 24.8 pg (30-35); Red Blood Count 4.44 M/mm3 (4.2-5.4); Reticulocyte Count 1.82 % (0.5-1.5); White Blood Count 7.9 K/mm3 (4.4-11.0)
[2023-05-28 10:52] LABS: Vitamin B12 278 pg/mL (211-911)
[2023-05-28 11:08] LABS: Ferritin 9 ng/mL (8-252); Iron 56 ug/dL (50-170); Iron Binding Capacity,Total 502 ug/dL (250-450); LDH 204 U/L (84-246); PERCENT IRON SATURATION 11.2 % (15.0-55.0)
[2023-05-30 16:10] LABS: Haptoglobin 188 mg/dL (33-346); PROEL- A/G Ratio 1.2 (0.7-1.7); PROEL- Albumin 3.7 g/dL (2.9-4.4); PROEL- Alpha-1 Globulin 0.2 g/dL (0.0-0.4); PROEL- Alpha-2 Globulin 0.8 g/dL (0.4-1.0); PROEL- Beta Globulin 1.1 g/dL (0.7-1.3); PROEL- Globulin, Total 3.1 g/dL (2.2-3.9); PROEL- TOTAL PROTEIN 6.8 g/dL (6.0-8.5); PROELU- Albumin, Urine 35.8 % (.); PROELU- Alpha-1-Globulin,Ur 5.2 % (.); PROELU- Alpha-2-Globulin,Ur 21.5 % (.); PROELU- Beta Globulin, Ur 24.1 % (.); PROELU- Gamma Globulin, Ur 13.4 % (.); Total Protein, Ur 4.1 mg/dL (Not Estab.)
== END | disposition home or self-care (01) ==
LOC: LAB 09:32
PROVIDERS: PCP Internal Medicine; Referring Provider Internal Medicine; Visit Provider Internal Medicine
DX: D64.9 Anemia, unspecified (principal)
CPT/HCPCS: 36415; 82607; 82728; 82746; 83010; 83540; 83550; 83615; 84165; 84166; 85025; 85045; 86880

== ENCOUNTER → 2023-08-20 | Outpatient (CLI) | payer OTHER, SELFPAY ==
[2023-08-20 10:32] LABS: Erythrocyte Sedimentation Rate 17 mm/hr (0-30)
[2023-08-20 10:34] LABS: Absolute Lymphocyte Count 2.32 X10^3/uL (0.83-4.51); Absolute Neutrophil Count 4.9 X10^3/uL (2.0-7.7); Basophil# 0.06 X10^3/uL; Basophil% 0.7 % (0-1); Eosinophil# 0.17 X10^3/uL; Eosinophils% 2.1 % (0-5); Hematocrit 36.6 % (37-47); Hemoglobin 11.2 g/dL (12.0-15.0); Lymphocyte # 2.32 X10^3/ul (0.83-4.51); Lymphocyte % 28.5 % (19-41); Mean Corp Hgb Conc 30.6 g/dL (32-36); Mean Corpuscular Hgb 25.5 pg (27.0-32.0); Mean Corpuscular Volume 83.2 fL (81-99); Mean Platelet Vol. 9.4 fl (6.2-12.0); Monocyte# 0.69 X10^3/uL; Monocyte% 8.5 % (0-10); NRBC Flagged by Analyzer 0 % (0-5); Neutrophil # 4.88 X10^3/uL (2.7-7.7); Neutrophil % 59.8 % (47-70); Platelet Count 429 K/mm3 (150-450); RBC Distribution Width CV 18.6 % (11.6-14.6); RBC Distribution Width SD 55.3 fl (35.1-43.9); White Blood Count 8.2 K/mm3 (4.4-11.0)
[2023-08-20 11:13] LABS: AST(SGOT) 23 U/L (15-37); Alanine Aminotransfer ALT/SGPT 39 U/L (13-56); Albumin, Serum 3.4 g/dL (3.2-5.0); Alkaline Phosphatase 69 U/L (45-117); Bilirubin, Direct 0.07 mg/dL (0.00-0.30); Creatinine, Serum 0.97 mg/dL (0.55-1.02); EST Glomerular Filtration Rate 63 mL/min (>60); Est Glom Filt Rate - Afr Amer 77 mL/min (>60); Globulin 3.9 g/dL (2.2-4.2); Protein, Total 7.3 g/dL (6.4-8.2)
== END | disposition home or self-care (01) ==
LOC: LAB 10:06
PROVIDERS: PCP Internal Medicine; Referring Provider Internal Medicine Rheumatology; Visit Provider Internal Medicine Rheumatology
DX: M06.09 Rheumatoid arthritis without rheumatoid factor, multiple sites (principal); Z79.899 Other long term (current) drug therapy
CPT/HCPCS: 36415; 80076; 82565; 85025; 85652; 86140

== ENCOUNTER 2023-10-16 18:27 | Emergency (ER) | payer OTHER, SELFPAY ==
[2023-10-16 18:32] VITALS: BP 163/84; PULSE 90; RESP 18; TEMP 35.6; O2SAT 98; BMI 42.3
[2023-10-16 18:36] VITALS: BP 163/84; PULSE 90; RESP 16; TEMP 35.6; O2SAT 98
--- NOTE | 2023-10-16 18:47 | EKG12_ITS ---
Test Reason : CP Blood Pressure : / mmHG Vent. Rate : 080 BPM Atrial Rate : 080 BPM P-R Int : 162 ms QRS Dur : 100 ms QT Int : 382 ms P-R-T Axes : 052 017 017 degrees QTc Int : 440 ms Normal sinus rhythm Normal ECG Confirmed by Sanjiv Macias ([id number]), science editor NANDINI RIOS ([id number]) on 10/17/2023 8:05:26 AM Referred By: KLAUDIA Confirmed By:Sanjiv Macias
[2023-10-16 19:02] LABS: Absolute Lymphocyte Count 3.59 X10^3/uL (0.83-4.51); Absolute Neutrophil Count 5.2 X10^3/uL (2.0-7.7); Basophil# 0.05 X10^3/uL; Basophil% 0.5 % (0-1); Eosinophil# 0.17 X10^3/uL; Eosinophils% 1.7 % (0-5); Hematocrit 36.5 % (37-47); Hemoglobin 11.4 g/dL (12.0-15.0); Lymphocyte # 3.59 X10^3/ul (0.83-4.51); Lymphocyte % 36.3 % (19-41); Mean Corp Hgb Conc 31.2 g/dL (32-36); Mean Corpuscular Hgb 24.7 pg (27.0-32.0); Mean Corpuscular Volume 79.2 fL (81-99); Mean Platelet Vol. 9.1 fl (6.2-12.0); Monocyte# 0.86 X10^3/uL; Monocyte% 8.7 % (0-10); NRBC Flagged by Analyzer 0 % (0-5); Neutrophil # 5.19 X10^3/uL (2.7-7.7); Neutrophil % 52.5 % (47-70); Platelet Count 391 K/mm3 (150-450); RBC Distribution Width CV 18.7 % (11.6-14.6); Red Blood Count 4.61 M/mm3 (4.2-5.4); White Blood Count 9.9 K/mm3 (4.4-11.0)
--- NOTE | 2023-10-16 19:06 | RAD_ITS ---
STUDY: X-RAY CHEST REASON FOR EXAM: Female, 53 years old. chest pain TECHNIQUE: Single AP portable view of the chest. COMPARISON: 01/01/2021 FINDINGS: The lungs are clear and expanded. There is no demonstrated pleural abnormality. Normal size heart. Normal mediastinum and javier. Normal visualized pulmonary arteries. Normal visualized aortic arch and descending thoracic aorta. Normal visualized thoracic spine. Normal visualized ribs, clavicles, and shoulders. There is no demonstrated abnormality of the visualized soft tissue structures of the upper abdomen. RAD/Chest 1 View (Portable) IMPRESSION: Normal x-ray examination of the chest. Electronically Signed: Devang Pierce MD at 19:32 EST ,
[2023-10-16 19:22] LABS: Anion Gap 8 (5-15); BUN 17 mg/dL (7-18); BUN/Creat Ratio 17.3 RATIO (10-20); Calcium,Total 9.3 mg/dL (8.5-10.1); Chloride 108 mmol/L (98-107); Creatinine, Serum 0.98 mg/dL (0.55-1.02); EST Glomerular Filtration Rate 63 mL/min (>60); Est Glom Filt Rate - Afr Amer 76 mL/min (>60); Estimated Creatinine Clearance 99.17 ml/min; Glucose 111 mg/dL (74-106); Potassium 3.8 mmol/L (3.5-5.1); Sodium Level 141 mmol/L (136-145); Troponin-I HS 7 pg/mL (3.0-54.0)
--- NOTE | 2023-10-16 19:50 | ED.VIS.CHEST ---
HPI History of Present Illness Chief Complaint: Chest Pain Narrative Narrative: 63-year-old female presenting with chest pain. She is clinical describes it as a dull ache. Continuous over the sternal area. Patient states it has been there for about 9 hours now. Patient has history of PE and DVT but is on Eliquis. She has not missed any doses. No fevers, chills, cough. No dizziness or lightheadedness. Denies cardiac history. PFSH PFS Medical History Anemia Anxiety Back problem Blood clotting disorder Carpal tunnel syndrome Contraception management Contusion of left hand Contusion of left wrist COVID-19 DVT (deep venous thrombosis) Esophageal reflux Fatty liver Fatty liver disease, nonalcoholic Genital herpes GERD (gastroesophageal reflux disease) Heart murmur History of echocardiogram History of edema History of stress test Hx of venous thrombosis and embolism Hypothyroidism Injury of left hand Left wrist injury Leg cramps Low iron Lupus anticoagulant disorder Non-smoker PCOS (polycystic ovarian syndrome) Polycystic ovaries Positive test for human papillomavirus (HPV) Rheumatoid arthritis Screening for malignant neoplasm of intestine Thyroid disease Wears contact lenses Wears glasses Home Medications levothyroxine 150 mcg tablet 150 mcg PO DAILY thyroid 06/01/13 [History Last Taken 04/18/21 07:00] lovastatin 20 mg tablet 20 mg PO QHS metabolic syndrome 06/01/13 [History Last Taken 01/11/17] pantoprazole 40 mg tablet,delayed release 40 mg PO DAILY GERD 06/01/13 [History Last Taken 04/18/21 07:00] spironolactone 100 mg tablet 100 mg PO BID PCOS 06/01/13 [History Last Taken 01/11/17] metformin 500 mg tablet (Glucophage) 2,500 mg PO DAILY PCOS 05/02/20 [History Last Taken Unknown] methotrexate sodium 2.5 mg tablet 25 mg PO GARCIA RA 05/02/20 [History Last Taken Unknown] gvbkcbbo-flhr-rlae 8 mg-folic 400 mcg-K 50 mcg-lutein 300 mcg tablet (Centrum Silver Women) 1 tab PO DAILY supplement 04/10/21 [History Last Taken Unknown] valacyclovir 500 mg tablet (Valtrex) 500 mg PO DAILY 04/10/21 [History Last Taken Unknown] nystatin 100,000 unit/gram topical powder (Nystop) 1 applic topical BID #45 ea 11/30/21 [Rx Last Taken Unknown] venlafaxine 75 mg capsule,extended release 24 hr (Effexor XR) 75 mg PO DAILY anxiety #90 caps 03/30/22 [Rx Last Taken Unknown] meloxicam 7.5 mg tablet 7.5 mg PO DAILY 12/13/22 [History Last Taken Unknown] apixaban 5 mg tablet (Eliquis) 5 mg PO BID 03/15/23 [History Last Taken Unknown] Allergy/AdvReac Type Severity Reaction Status Date / Time doxycycline AdvReac Vomiting Verified 10/16/23 18:31 hydromorphone [Hydromorphone] AdvReac Nausea/Vom/ Verified 10/16/23 18:31 Diarrhea oxycodone [Oxycodone] AdvReac Nausea/Vom/ Verified 10/16/23 18:31 Diarrhea Family History Father Hypertension Diabetes Cancer CAD (coronary artery disease) Mother Cancer ovarian Muscular dystrophy Brother Hypertension Sister Hypertension Glioblastoma Surgical History H/O dilation and curettage Hx of colonoscopy S/P bunionectomy Social History Smoking Status: Never smoker alcohol intake: never substance use type: does not use caffeine: Yes what type of physical activity do you participate in: walking seatbelt use: always do you feel safe at home: Yes 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 Constitutional Constitutional ED: Denies chills, fever(s) or sweats Eyes Eyes: Denies blurry vision or change in vision ENT ENT ED: Denies ear pain or sore throat Cardiovascular Cardiovascular: Reports chest pain; Denies palpitations or racing heartbeat Respiratory/Chest Respiratory/Chest: Denies cough, dyspnea or sputum Gastrointestinal Gastrointestinal: Denies abdominal pain, constipation, diarrhea, nausea or vomiting Genitourinary Genitourinary ED: Denies dysuria, hematuria or urinary frequency Musculoskeletal Musculoskeletal: Denies arthralgias, myalgias or neck pain Integumentary Denies abscess, Abrasions or rash Neurologic Neurologic: Denies headache(s), paresthesias or weakness Psychiatric Psychiatric: Denies anxiety, depression, suicidal ideation or suicidal thoughts Endocrine Endocrinology: Denies polydipsia or polyuria EXAM Physical Exam Const Vital Signs: 10/16/23 18:32 10/16/23 18:36 10/16/23 20:00 Temperature 96.0 F L 96.0 F L Temperature Source Temporal Temporal Pulse Rate 90 90 74 Respiratory Rate 18 16 22 H Blood Pressure 163/84 H 163/84 H 139/91 H Blood Pressure Mean 110 110 107 Pulse Ox 98 98 92 Oxygen Delivery Method Room Air Room Air Room Air 10/16/23 20:00 Temperature 96.0 F L Temperature Source Pulse Rate 90 Respiratory Rate 16 Blood Pressure 163/84 H Blood Pressure Mean 110 Pulse Ox 92 Oxygen Delivery Method Positive well nourished General Appearance ED: NAD HEENT Reports moist mucous membranes normocephalic Eyes PERRL and EOMs intact bilaterally Neck no lymphadenopathy Resp normal respiratory effort and clear to auscultation bilaterally Auscultation: Negative for rales, rhonchi or wheezes Cardio regular rate and regular rhythm Neuro oriented x3 and CN's II-XII intact bilaterally Sensorium / Orientation: awake and alert Motor Exam: strength 5/5 throughout Psych mental status grossly normal MDM MDM MDM Narrative Medical decision making narrative: Patient presenting with chest pain which is very mild which she has had for about 9 hours now. I have low suspicion for ACS. Considered PE however the patient is on Eliquis. I obtained an EKG and a cardiac workup. EKG on my interpretation shows a normal sinus rhythm at a ventricular rate of 80 bpm without sign of ischemic change or ectopy. Chest x-ray my interpretation shows no acute process. The radiologist interprets this and agrees. Lab workup unremarkable. High-sensitivity troponin is 9:07 hours so I do not believe need a delta troponin. Patient is comfortable with this. We discussed follow-up with her PCP and stress test as an outpatient. Return precautions were discussed. Impression: 1. Chest pain Lab Data Attestation: I reviewed the patient's lab results. Labs: Laboratory Results - last 24 hr 10/16/23 18:50 WBC 9.9 RBC 4.61 Hgb 11.4 L Hct 36.5 L MCV 79.2 L MCH 24.7 L MCHC 31.2 L RDW Std Deviation 53.0 H RDW Coeff of Magdy 18.7 H Plt Count 391 MPV 9.1 Immature Gran % (Auto) 0.300 Neut % (Auto) 52.5 Lymph % (Auto) 36.3 Hood % (Auto) 8.7 Eos % (Auto) 1.7 Baso % (Auto) 0.5 Absolute Neuts (auto) 5.2 Absolute Lymphs (auto) 3.59 Nucleated RBC % 0 Sodium 141 Potassium 3.8 Chloride 108 H Carbon Dioxide 25.0 Anion Gap 8 BUN 17 Creatinine 0.98 Estim Creat Clear Calc 99.17 Est GFR (MDRD) Af Amer 76 Est GFR (MDRD) Non-Af 63 BUN/Creatinine Ratio 17.3 Glucose 111 H Calcium 9.3 Troponin I High Sens 7 Radiography Diagnostic Testing: Clinical Impression(s) from Imaging Studies Chest X-Ray 10/16/23 19:06 IMPRESSION: Normal x-ray examination of the chest. Electronically Signed: Devang Pierce MD at 19:32 EST Reading Location ID and State: [address] [place] [address] Tel , Service support , Discharge Plan Triage Chief Complaint: Chest Pain ED Provider: Primitivo Kay Dx/Rx/DC Orders Instructions: ED Chest Pain, Noncardiac Prescriptions: No Action methotrexate sodium 2.5 mg tablet 25 mg PO GARCIA metformin [Glucophage] 500 mg tablet 2,500 mg PO DAILY meloxicam 7.5 mg tablet 7.5 mg PO DAILY Eliquis 5 mg tablet 5 mg PO BID spironolactone 100 MG tablet 100 mg PO BID pantoprazole 40 MG tablet 40 mg PO DAILY levothyroxine 150 MCG tablet 150 mcg PO DAILY lovastatin 20 MG tablet 20 mg PO QHS Centrum Silver Women 8 mg iron-400 mcg-300 mcg Tablet 1 tab PO DAILY valacyclovir [Valtrex] 500 mg tablet 500 mg PO DAILY nystatin [Nystop] 100,000 unit/gram powder 1 applic topical BID Qty: 45 7RF venlafaxine [Effexor XR] 75 mg capsule,extended release 24hr 75 mg PO DAILY Qty: 90 3RF Primary Care Provider: Kiley Parekh Referrals: Kiley Parekh DO [Primary Care Provider] - Disposition Disposition: Home, Self Care Discharge Date/Time: 10/16/23 20:04
[2023-10-16 20:00] VITALS: BP 139/91; BP 163/84; PULSE 74; PULSE 90; RESP 16; RESP 22; TEMP 35.6; O2SAT 92
== END 2023-10-16 20:04 | disposition home or self-care (01) ==
PROVIDERS: Emergency Provider Student in an Organized Health Care Education/Training Program; PCP Internal Medicine; Visit Provider Student in an Organized Health Care Education/Training Program
DX: R07.9 Chest pain, unspecified (principal); M06.9 Rheumatoid arthritis, unspecified; Z86.718 Personal history of other venous thrombosis and embolism; Z79.01 Long term (current) use of anticoagulants; Z86.711 Personal history of pulmonary embolism; E03.9 Hypothyroidism, unspecified; Z79.899 Other long term (current) drug therapy; K21.9 Gastro-esophageal reflux disease without esophagitis; F41.9 Anxiety disorder, unspecified
CPT/HCPCS: 71045; 80048; 84484; 85025; 87631; 93005; 99284

== ENCOUNTER → 2023-12-02 | Outpatient (CLI) | payer OTHER, SELFPAY ==
[2023-12-02 14:45] LABS: Absolute Lymphocyte Count 4.54 X10^3/uL (0.83-4.51); Absolute Neutrophil Count 6.5 X10^3/uL (2.0-7.7); Basophil# 0.05 X10^3/uL; Basophil% 0.4 % (0-1); Eosinophil# 0.19 X10^3/uL; Eosinophils% 1.6 % (0-5); Hematocrit 34.7 % (37-47); Hemoglobin 10.6 g/dL (12.0-15.0); Lymphocyte # 4.54 X10^3/ul (0.83-4.51); Lymphocyte % 37.2 % (19-41); Mean Corp Hgb Conc 30.5 g/dL (32-36); Mean Corpuscular Hgb 24.1 pg (27.0-32.0); Mean Corpuscular Volume 78.9 fL (81-99); Mean Platelet Vol. 9.4 fl (6.2-12.0); Monocyte# 0.76 X10^3/uL; Monocyte% 6.2 % (0-10); NRBC Flagged by Analyzer 0 % (0-5); Neutrophil # 6.54 X10^3/uL (2.7-7.7); Neutrophil % 53.5 % (47-70); POSITIVE MORPHOLOGY YES; Platelet Count 409 K/mm3 (150-450); RBC Distribution Width CV 19.4 % (11.6-14.6); RBC Distribution Width SD 54.2 fl (35.1-43.9); White Blood Count 12.2 K/mm3 (4.4-11.0)
[2023-12-02 14:51] LABS: Differential Indicated SCAN CRITERIA MET
[2023-12-02 14:56] LABS: Erythrocyte Sedimentation Rate 12 mm/hr (0-30)
[2023-12-02 15:30] LABS: AST(SGOT) 25 U/L (15-37); Alanine Aminotransfer ALT/SGPT 51 U/L (13-56); Albumin, Serum 3.2 g/dL (3.2-5.0); Alkaline Phosphatase 64 U/L (45-117); CRP 7.73 mg/L (0.0-3.0); Creatinine, Serum 1.03 mg/dL (0.55-1.02); EST Glomerular Filtration Rate 59 mL/min (>60); Est Glom Filt Rate - Afr Amer 72 mL/min (>60); Globulin 3.4 g/dL (2.2-4.2); Protein, Total 6.6 g/dL (6.4-8.2)
[2023-12-02 15:41] LABS: Differential Comment SCANNED
== END | disposition home or self-care (01) ==
LOC: LAB 09:12
PROVIDERS: PCP Internal Medicine; Referring Provider Internal Medicine Rheumatology; Visit Provider Internal Medicine Rheumatology
DX: M06.09 Rheumatoid arthritis without rheumatoid factor, multiple sites (principal); Z79.899 Other long term (current) drug therapy
CPT/HCPCS: 36415; 80076; 82565; 85025; 85652; 86140

== ENCOUNTER → 2023-12-31 | Outpatient (CLI) | payer OTHER, SELFPAY ==
[2023-12-31 11:21] LABS: Absolute Lymphocyte Count 1.96 X10^3/uL (0.83-4.51); Absolute Neutrophil Count 3.3 X10^3/uL (2.0-7.7); Basophil# 0.04 X10^3/uL; Basophil% 0.7 % (0-1); Eosinophil# 0.13 X10^3/uL; Eosinophils% 2.2 % (0-5); Hematocrit 36.2 % (37-47); Hemoglobin 11.1 g/dL (12.0-15.0); Lymphocyte # 1.96 X10^3/ul (0.83-4.51); Lymphocyte % 32.9 % (19-41); Mean Corp Hgb Conc 30.7 g/dL (32-36); Mean Corpuscular Hgb 24.5 pg (27.0-32.0); Mean Corpuscular Volume 79.9 fL (81-99); Mean Platelet Vol. 9.1 fl (6.2-12.0); Monocyte# 0.53 X10^3/uL; Monocyte% 8.9 % (0-10); NRBC Flagged by Analyzer 0 % (0-5); Neutrophil # 3.29 X10^3/uL (2.7-7.7); Neutrophil % 55.1 % (47-70); Platelet Count 390 K/mm3 (150-450); RBC Distribution Width CV 19.9 % (11.6-14.6); RBC Distribution Width SD 56.2 fl (35.1-43.9); Red Blood Count 4.53 M/mm3 (4.2-5.4)
== END | disposition home or self-care (01) ==
LOC: LAB 10:47
PROVIDERS: PCP Internal Medicine; Referring Provider Internal Medicine; Visit Provider Internal Medicine
DX: R79.82 Elevated C-reactive protein (CRP) (principal); D64.9 Anemia, unspecified
CPT/HCPCS: 36415; 85025; 86140

== ENCOUNTER → 2024-01-06 | Outpatient (CLI) | payer OTHER, SELFPAY ==
--- NOTE | 2024-01-06 12:49 | BI_ITS ---
MAMMOGRAPHY - BILATERAL SCREENING REASON FOR EXAM: Female, 53 years old. Routine annual screening examination. PERTINENT HISTORY: Grandmother with breast cancer. Aunt with breast cancer. TECHNIQUE: Digital bilateral breast malick (3D mammographic acquisition) in the CC and MLO projections. 2-D mediolateral oblique (MLO) and craniocaudad (CC) views of both breasts were obtained. CAD: Full Field Digital Mammography with Computer Added Detection was performed. COMPARISON: Comparison is made with prior study dated September 25, 2022 and April 14, 2021. FINDINGS: Breast Composition: The breasts are almost entirely fatty. There are no dominant masses or suspicious calcifications. Stable small benign-appearing bilateral axillary lymph nodes. No other significant abnormalities are identified. There has been no significant change since the prior study. BI/SCRN MAMM (CAD)W/MALICK BILAT IMPRESSION: Stable bilateral screening mammogram. Yearly follow-up mammogram recommended. (A) ASSESSMENT CATEGORY: BIRADS Category 2: Benign. A letter regarding these results will be sent to the patient by the facility within 30 days. Approximately 10% of breast cancers are not detected by mammography. A normal mammogram should not delay biopsy of a clinically suspicious abnormality. [id number] Electronically Signed: Clinton Jacobsen MD at 14:17 EDT ,
== END | disposition home or self-care (01) ==
LOC: OPBI 12:49
PROVIDERS: PCP Internal Medicine; Referring Provider Obstetrics & Gynecology; Visit Provider Obstetrics & Gynecology
DX: Z12.31 Encounter for screening mammogram for malignant neoplasm of breast (principal); Z80.3 Family history of malignant neoplasm of breast
CPT/HCPCS: 77063; 77067

== ENCOUNTER → 2024-01-14 | Outpatient (CLI) | payer OTHER, SELFPAY ==
[2024-01-17 14:09] LABS: HPV APTIMA, High Risk Negative (Negative)
== END | disposition home or self-care (01) ==
LOC: LABSPEC 11:24
PROVIDERS: PCP Internal Medicine; Referring Provider Nurse Practitioner Women's Health; Visit Provider Nurse Practitioner Women's Health
DX: Z12.4 Encounter for screening for malignant neoplasm of cervix (principal)
CPT/HCPCS: 87624; 88175; G0145

== ENCOUNTER → 2024-03-14 | Outpatient (CLI) | payer OTHER, SELFPAY ==
[2024-03-14 10:06] LABS: Absolute Neutrophil Count 3.1 X10^3/uL (2.0-7.7); Basophil# 0.04 X10^3/uL; Basophil% 0.7 % (0-1); Eosinophil# 0.18 X10^3/uL; Hemoglobin 11.5 g/dL (12.0-15.0); Lymphocyte % 36.2 % (19-41); Mean Corp Hgb Conc 31.1 g/dL (32-36); Mean Corpuscular Hgb 25.6 pg (27.0-32.0); Mean Corpuscular Volume 82.4 fL (81-99); Mean Platelet Vol. 9.6 fl (6.2-12.0); Monocyte# 0.48 X10^3/uL; Monocyte% 7.9 % (0-10); NRBC Flagged by Analyzer 0 % (0-5); Neutrophil # 3.14 X10^3/uL (2.7-7.7); Neutrophil % 51.7 % (47-70); Platelet Count 337 K/mm3 (150-450); RBC Distribution Width CV 18.5 % (11.6-14.6); RBC Distribution Width SD 53.8 fl (35.1-43.9); Red Blood Count 4.49 M/mm3 (4.2-5.4); White Blood Count 6.1 K/mm3 (4.4-11.0)
[2024-03-14 10:29] LABS: AST(SGOT) 18 U/L (15-37); Alanine Aminotransfer ALT/SGPT 41 U/L (13-56); Albumin, Serum 3.2 g/dL (3.2-5.0); Alkaline Phosphatase 72 U/L (45-117); Creatinine, Serum 0.79 mg/dL (0.55-1.02); EST Glomerular Filtration Rate 81 mL/min (>60); Est Glom Filt Rate - Afr Amer 98 mL/min (>60); Globulin 3.7 g/dL (2.2-4.2); Protein, Total 6.9 g/dL (6.4-8.2)
[2024-03-14 11:02] LABS: Erythrocyte Sedimentation Rate 17 mm/hr (0-30)
== END | disposition home or self-care (01) ==
LOC: LAB 09:29
PROVIDERS: PCP Internal Medicine; Referring Provider Internal Medicine Rheumatology; Visit Provider Internal Medicine Rheumatology
DX: Z79.899 Other long term (current) drug therapy (principal); M06.09 Rheumatoid arthritis without rheumatoid factor, multiple sites
CPT/HCPCS: 36415; 80076; 82565; 85025; 85652; 86140

== ENCOUNTER → 2024-06-19 | Outpatient (CLI) | payer OTHER, SELFPAY ==
[2024-06-19 07:33] LABS: AST(SGOT) 20 U/L (15-37); Alanine Aminotransfer ALT/SGPT 37 U/L (13-56); Albumin, Serum 3.4 g/dL (3.2-5.0); Alkaline Phosphatase 69 U/L (45-117); Creatinine, Serum 0.83 mg/dL (0.55-1.02); EST Glomerular Filtration Rate 76 mL/min (>60); Est Glom Filt Rate - Afr Amer 92 mL/min (>60); Globulin 3.5 g/dL (2.2-4.2); Protein, Total 6.9 g/dL (6.4-8.2)
[2024-06-19 07:57] LABS: Absolute Lymphocyte Count 2.28 X10^3/uL (0.83-4.51); Absolute Neutrophil Count 4.8 X10^3/uL (2.0-7.7); Basophil# 0.06 X10^3/uL; Basophil% 0.7 % (0-1); Eosinophil# 0.24 X10^3/uL; Hematocrit 36.4 % (37-47); Hemoglobin 11.3 g/dL (12.0-15.0); Lymphocyte # 2.28 X10^3/ul (0.83-4.51); Lymphocyte % 28.3 % (19-41); Mean Corpuscular Hgb 25.1 pg (27.0-32.0); Mean Corpuscular Volume 80.7 fL (81-99); Mean Platelet Vol. 9.3 fl (6.2-12.0); Monocyte# 0.61 X10^3/uL; Monocyte% 7.6 % (0-10); NRBC Flagged by Analyzer 0 % (0-5); Neutrophil # 4.84 X10^3/uL (2.7-7.7); Neutrophil % 59.9 % (47-70); Platelet Count 396 K/mm3 (150-450); RBC Distribution Width CV 19.4 % (11.6-14.6); RBC Distribution Width SD 54.8 fl (35.1-43.9); Red Blood Count 4.51 M/mm3 (4.2-5.4); White Blood Count 8.1 K/mm3 (4.4-11.0)
[2024-06-19 08:04] LABS: Erythrocyte Sedimentation Rate 17 mm/hr (0-30)
== END | disposition home or self-care (01) ==
LOC: LAB 06:33
PROVIDERS: PCP Internal Medicine; Referring Provider Internal Medicine Rheumatology; Visit Provider Internal Medicine Rheumatology
DX: M06.09 Rheumatoid arthritis without rheumatoid factor, multiple sites (principal); Z79.899 Other long term (current) drug therapy
CPT/HCPCS: 36415; 80076; 82565; 85025; 85652; 86140

== ENCOUNTER → 2024-07-28 | Outpatient (CLI) | payer OTHER, SELFPAY | END | disposition home or self-care (01) | LOC: SL 09:45 | PROVIDERS: PCP Internal Medicine; Referring Provider Nurse Practitioner Acute Care; Visit Provider Nurse Practitioner Acute Care | DX: G47.33 Obstructive sleep apnea (adult) (pediatric) (principal) | CPT/HCPCS: 98960; G0463 ==

== ENCOUNTER → 2024-09-21 | Outpatient (CLI) | payer OTHER, SELFPAY ==
[2024-09-21 12:19] LABS: Erythrocyte Sedimentation Rate 23 mm/hr (0-30)
[2024-09-21 12:28] LABS: Absolute Lymphocyte Count 2.88 X10^3/uL (0.83-4.51); Basophil# 0.06 X10^3/uL; Basophil% 0.6 % (0-1); Eosinophil# 0.33 X10^3/uL; Eosinophils% 3.3 % (0-5); Hematocrit 36.5 % (37-47); Hemoglobin 11.1 g/dL (12.0-15.0); Lymphocyte # 2.88 X10^3/ul (0.83-4.51); Lymphocyte % 28.8 % (19-41); Mean Corp Hgb Conc 30.4 g/dL (32-36); Mean Corpuscular Hgb 23.2 pg (27.0-32.0); Mean Corpuscular Volume 76.2 fL (81-99); Mean Platelet Vol. 9.1 fl (6.2-12.0); Monocyte# 0.68 X10^3/uL; Monocyte% 6.8 % (0-10); NRBC Flagged by Analyzer 0 % (0-5); Neutrophil # 6.03 X10^3/uL (2.7-7.7); Neutrophil % 60.3 % (47-70); Platelet Count 395 K/mm3 (150-450); RBC Distribution Width CV 17.6 % (11.6-14.6); RBC Distribution Width SD 48.3 fl (35.1-43.9); Red Blood Count 4.79 M/mm3 (4.2-5.4)
[2024-09-21 13:12] LABS: AST(SGOT) 22 U/L (15-37); Alanine Aminotransfer ALT/SGPT 37 U/L (13-56); Albumin, Serum 3.4 g/dL (3.2-5.0); Alkaline Phosphatase 75 U/L (45-117); Bilirubin, Direct 0.07 mg/dL (0.00-0.30); Creatinine, Serum 0.99 mg/dL (0.55-1.02); EST Glomerular Filtration Rate 62 mL/min (>60); Est Glom Filt Rate - Afr Amer 75 mL/min (>60); Globulin 4.1 g/dL (2.2-4.2); Protein, Total 7.5 g/dL (6.4-8.2)
== END | disposition home or self-care (01) ==
LOC: LAB.FUTURE 11:59 → LAB 12:01
PROVIDERS: PCP Internal Medicine; Visit Provider Internal Medicine Rheumatology
DX: M06.09 Rheumatoid arthritis without rheumatoid factor, multiple sites (principal); Z79.899 Other long term (current) drug therapy
CPT/HCPCS: 36415; 80076; 82565; 85025; 85652; 86140

== ENCOUNTER 2024-09-28 06:10 | Emergency (ER) | payer OTHER, SELFPAY ==
[2024-09-28 06:10] VITALS: BP 159/101; PULSE 95; RESP 18; TEMP 36.6; O2SAT 97; BMI 43.7
--- NOTE | 2024-09-28 06:25 | ED.VIS.LOWEX ---
HPI <Dr. Macho Mckoy DO - Last Filed: 09/28/24 07:21> History of Present Illness HPI Narrative: Patient presents with right knee pain that began this morning. Patient states she was leaning against the wall and she was putting on her left shoe. Patient states she felt a pop in her right knee. Patient describes the pain as sharp and stabbing. Patient states it is worse with any movement, especially lateral movement. Patient states it is somewhat better at rest. Patient denies any paresthesias or weakness. Patient denies any other injuries. Chief Complaint: Lower Extremity Injury Informant: patient Onset/Context/Timing Onset: Today Context: Sudden Onset Timing: Continuous Quality of Pain: Sharp and Stabbing Location: Right knee Worsened by: Movement Relieved by: Rest Associated Symptoms Associated Symptoms: Negative for Parasthesia, Weakness or Loss of Funtion PFSH <Dr. Macho Mckoy DO - Last Filed: 09/28/24 07:21> [facility] Medical History Wears contact lenses Wears glasses Anxiety Low iron Fatty liver DVT (deep venous thrombosis) Non-smoker Leg cramps History of edema History of echocardiogram History of stress test Lupus anticoagulant disorder Screening for malignant neoplasm of intestine Contraception management Rheumatoid arthritis Fatty liver disease, nonalcoholic Positive test for human papillomavirus (HPV) Genital herpes Blood clotting disorder Thyroid disease GERD (gastroesophageal reflux disease) PCOS (polycystic ovarian syndrome) Heart murmur Carpal tunnel syndrome Back problem Anemia Polycystic ovaries Hypothyroidism Hx of venous thrombosis and embolism Esophageal reflux Home Medications ?Medication ?Instructions ?Recorded ?Last Taken ?Type levothyroxine 150 mcg tablet 150 mcg PO DAILY thyroid 06/01/13 04/18/21 07:00 History lovastatin 20 mg tablet 20 mg PO QHS metabolic syndrome 06/01/13 01/11/17 History pantoprazole 40 mg tablet,delayed 40 mg PO DAILY GERD 06/01/13 04/18/21 07:00 History release spironolactone 100 mg tablet 100 mg PO BID PCOS 06/01/13 01/11/17 History metformin 500 mg tablet 2,500 mg PO DAILY PCOS 05/02/20 Unknown History (Glucophage) [id number] 8 mg-folic 400 1 tab PO DAILY supplement 04/10/21 Unknown History mcg-K 50 mcg-lutein 300 mcg tablet (Centrum Silver Women) nystatin 100,000 unit/gram topical 1 applic topical BID #45 ea 11/30/21 Unknown Rx powder (Nystop) venlafaxine 75 mg capsule,extended 75 mg PO DAILY anxiety #90 caps 03/30/22 Unknown Rx release 24 hr (Effexor XR) meloxicam 7.5 mg tablet 7.5 mg PO DAILY 12/13/22 Unknown History apixaban 5 mg tablet (Eliquis) 5 mg PO BID 03/15/23 Unknown History coenzyme Q10 75 mg capsule (Ultra 75 mg PO DAILY 01/14/24 Unknown History CoQ10) valacyclovir 500 mg tablet 500 mg PO BID PRN genital herpes 5 01/14/24 Unknown Rx (Valtrex) days #30 tabs methotrexate sodium 2.5 mg tablet 10 mg PO GARCIA RA 07/08/24 Unknown History hydrocodone-acetaminophen 5-325mg 1 tab PO Q6H PRN PRN Pain 3 days 09/28/24 Unknown Rx 5mg-325mg #10 TABLETS Allergy/AdvReac Type Severity Reaction Status Date / Time doxycycline AdvReac Vomiting Verified 09/28/24 06:15 Family History (Reviewed 07/08/24 @ 08:41 by Ghazal Lee [employer]ODUCTION WORKER, [employer]ODUCTION WORK[employer]) Father Hypertension Diabetes Cancer CAD (coronary artery disease) Mother Cancer ovarian Muscular dystrophy Brother Hypertension Sister Hypertension Glioblastoma Surgical History Hx of colonoscopy S/P bunionectomy H/O dilation and curettage Social History Smoking Status: Never smoker alcohol intake: never substance use type: does not use caffeine: Yes what type of physical activity do you participate in: walking seatbelt use: always do you feel safe at home: Yes 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 Macho Mckoy DO - Last Filed: 09/28/24 07:21> ROS ED Constitutional Constitutional ED: Denies chills or fever(s) Eyes Eyes: Denies blurry vision or change in vision ENT ENT ED: Denies rhinorrhea or sore throat Cardiovascular Cardiovascular: Denies chest pain or palpitations Respiratory/Chest Respiratory/Chest: Denies cough or dyspnea Gastrointestinal Gastrointestinal: Denies nausea or vomiting Genitourinary Genitourinary ED: Denies dysuria or hematuria Musculoskeletal Musculoskeletal: Denies back pain or neck pain Integumentary Denies abscess or rash Neurologic Neurologic: Denies headache(s) or weakness Allergic/Immunologic Allergic/Immunologic ED: Denies mouth swelling or urticaria EXAM <Dr. Macho Mckoy, DO - Last Filed: 09/28/24 07:21> Physical Exam Const Vital Signs: 09/28/24 06:10 Temperature 97.8 F Temperature Source Oral Pulse Rate 95 Respiratory Rate 18 Blood Pressure 159/101 H Blood Pressure Mean 120 Pulse Ox 97 Oxygen Delivery Method Room Air Positive well nourished and well developed Constitutional Narrative: BMI is 43.8 General Appearance ED: well developed and NAD HEENT Reports moist mucous membranes normocephalic and atraumatic Neck full ROM Extremity Extremity Narrative: There is tenderness along the medial and lateral joint line of the right knee, worse on the lateral joint line. There is no effusion. There is no edema or ecchymosis. There is no bony crepitus or step-off. Range of motion was limited in all motions of the right knee secondary to pain. Strength is 5/5 bilaterally in the lower extremities. There are no sensory deficits noted. Neuro oriented x3, CN's II-XII intact bilaterally, moves all extremities and no sensory deficits noted Sensorium / Orientation: alert Motor Exam: strength 5/5 throughout Psych mental status grossly normal <Dr. Domingo Weaver MD - Last Filed: 09/28/24 08:52> Physical Exam Const Vital Signs: 09/28/24 06:10 Temperature 97.8 F Temperature Source Oral Pulse Rate 95 Respiratory Rate 18 Blood Pressure 159/101 H Blood Pressure Mean 120 Pulse Ox 97 Oxygen Delivery Method Room Air MDM <Dr. Macho Mckoy, DO - Last Filed: 09/28/24 07:21> [facility] MDM Narrative Medical decision making narrative: Differential diagnosis includes occult fracture, osteochondritis dissecans, meniscus tear, and ligamentous sprain. X-rays of the right knee will be obtained to assess for occult fracture and loose body. Radiography Diagnostic Testing: Clinical Impression(s) from Imaging Studies Knee X-Ray 09/28/24 06:34 IMPRESSION: Normal x-ray examination of the knee. Electronically Signed: Clinton Jacobsen MD at 8:34 EST , X-rays of the right knee were obtained. There are 4 views. On my independent interpretation, there is no acute fracture or dislocation. There is a mild effusion noted. There are some degenerative changes noted. Treatment and Re-Evaluation Narrative: Patient was given injection of Toradol here. Patient was advised of her findings. Patient was instructed to ice and elevate the right knee. Patient was given a knee immobilizer and crutches. Patient was instructed to ice and elevate the right knee. Patient was given a prescription for a short course of [place]. Patient was instructed to follow-up with her primary care physician in 5 to 7 days. Patient was instructed to return if worse in any way. Patient understood and was agreeable with the plan. All questions were answered. <Dr. Domingo Weaver MD - Last Filed: 09/28/24 08:52> MDM Radiography Chest X-Ray - ED: Read by ED Physician (4 view x-ray of the knee was reviewed interpreted by me at change of shift as negative for acute pathology. There is no effusion. There is some minimal arthritic changes and mild asymmetry of the joint. Dr. Gordillo requested for me to review radiology interpretation prior to discharge. Radiolo) Diagnostic Testing: Clinical Impression(s) from Imaging Studies Knee X-Ray 09/28/24 06:34 IMPRESSION: Normal x-ray examination of the knee. Electronically Signed: Clinton Jacobsen MD at 8:34 EST , Discharge Plan Triage Chief Complaint: Lower Extremity Injury ED Provider: Macho Mckoy Dx/Rx/DC Orders Clinical Impression: Right knee sprain, Rheumatoid arthritis Instructions: ED Knee Sprain Prescriptions: New hydrocodone-acetaminophen 5-325 mg tablet 1 tab PO Q6H PRN PRN (Reason: Pain) 3 Days Qty: 10 0RF No Action metformin [Glucophage] 500 mg tablet 2,500 mg PO DAILY methotrexate sodium 2.5 mg tablet 10 mg PO GARCIA meloxicam 7.5 mg tablet 7.5 mg PO DAILY Ultra CoQ10 75 mg capsule 75 mg PO DAILY valacyclovir [Valtrex] 500 mg tablet 500 mg PO BID PRN (Reason: genital herpes) 5 Days Qty: 30 4RF Eliquis 5 mg tablet 5 mg PO BID spironolactone 100 MG tablet 100 mg PO BID pantoprazole 40 MG tablet 40 mg PO DAILY levothyroxine 150 MCG tablet 150 mcg PO DAILY lovastatin 20 MG tablet 20 mg PO QHS Centrum Silver Women 8 mg iron-400 mcg-300 mcg Tablet 1 tab PO DAILY nystatin [Nystop] 100,000 unit/gram powder 1 applic topical BID Qty: 45 7RF venlafaxine [Effexor XR] 75 mg capsule,extended release 24hr 75 mg PO DAILY Qty: 90 3RF Stand Alone Forms: Work Status Form Primary Care Provider: Kiley Parekh Referrals: Kiley Parekh DO [Primary Care Provider] - 5-7 Days Print Language: Syrian Disposition Disposition: Home, Self Care
--- NOTE | 2024-09-28 06:34 | RAD_ITS ---
STUDY: X-RAY - RIGHT KNEE REASON FOR EXAM: Female, 54 years old. Injury/Pain TECHNIQUE: 4 view(s) of the knee. COMPARISON: None. FINDINGS: Normal visualized distal femur. Normal visualized proximal tibia and fibula. Normal proximal tibiofibular articulation. Normal medial femorotibial compartment. Normal lateral femorotibial compartment. Normal patellofemoral articulation. The soft tissue structures are unremarkable. RAD/Knee 4 or More Views IMPRESSION: Normal x-ray examination of the knee. Electronically Signed: Clinton Jacobsen MD at 8:34 EST ,
[2024-09-28] MEDS: Ketorolac 60 MG/2 ML Vial IM (07:03)
[2024-09-28 09:17] VITALS: BP 140/96; PULSE 78; RESP 18; TEMP 36.6; O2SAT 99
== END 2024-09-28 09:53 | disposition home or self-care (01) ==
PROVIDERS: Emergency Provider Emergency Medicine; PCP Internal Medicine; Visit Provider Emergency Medicine
DX: S83.91XA Sprain of unspecified site of right knee, initial encounter (principal); M06.061 Rheumatoid arthritis without rheumatoid factor, right knee; Z86.711 Personal history of pulmonary embolism; Z86.718 Personal history of other venous thrombosis and embolism; X50.9XXA Other and unspecified overexertion or strenuous movements or postures, initial encounter; E03.9 Hypothyroidism, unspecified; K21.9 Gastro-esophageal reflux disease without esophagitis; F41.9 Anxiety disorder, unspecified
CPT/HCPCS: 73564; 96372; 99284

== ENCOUNTER → 2024-10-20 | Outpatient (CLI) | payer OTHER, SELFPAY ==
--- NOTE | 2024-10-20 09:53 | ECHOD_ITS ---
Reason For Study : MITRAL REGURIGTATION Procedure This was a 2D Doppler, Color Flow transthoracic echocardiogram. The study was technically difficult. Exam performed in department. Left Ventricle Normal LV size. Mild concentric left ventricular hypertrophy. The left ventricular ejection fraction is 65 %. Stage 1 diastolic dysfunction. Right Ventricle Normal right ventricle. Atria The left and right atria are normal. Mitral Valve Mild (1+) mitral valve insufficiency. Tricuspid Valve Trivial tricuspid valve insufficiency. Unable to estimate RV systolic pressure due to insufficient tricuspid regurgitant envelope. Aortic Valve Trisinus/trileaflet aortic valve. Pulmonic Valve The pulmonic valve is not well visualized. Great Vessels Normal sized aortic root. Pericardium/Pleural No pericardial effusion. MMode/2D Measurements & Calculations LVIDd: 4.8 cm IVSd: 1.3 cm LVOT diam: 2.0 cm LVIDs: 2.9 cm LVPWd: 1.0 cm LVOT area: 3.3 cm2 RVDd: 3.0 cm FS: 39.3 % asc Aorta Diam: 3.5 cm LAV(MOD-bp): 62.7 ml LVAd ap4: 22.5 cm2 LAV(MOD-bp) Indexed: 25.2 ml/m2 LVLd ap4: 7.5 cm LAV(MOD-sp2): 57.2 ml EDV(MOD-sp4): 56.0 ml LAV(MOD-sp4): 65.3 ml EDV(sp4-el): 57.1 ml LVAs ap4: 12.7 cm2 LVLs ap4: 6.4 cm ESV(MOD-sp4): 22.0 ml ESV(sp4-el): 21.3 ml EF(MOD-sp4): 60.8 % EF(sp4-el): 62.6 % LVAd ap2: 22.3 cm2 SV(MOD-sp4): 34.0 ml SV(MOD-sp2): 39.9 ml LVLd ap2: 7.4 cm SI(MOD-sp4): 13.7 ml/m2 SI(MOD-sp2): 16.0 ml/m2 EDV(MOD-sp2): 54.5 ml EDV(sp2-el): 56.7 ml LVAs ap2: 10.3 cm2 LVLs ap2: 5.9 cm ESV(MOD-sp2): 14.6 ml ESV(sp2-el): 15.1 ml EF(MOD-sp2): 73.2 % SV(sp4-el): 35.8 ml Ao sinus diam: 3.[address] Junction: 2.8 cm LA dimension(2D): 4.0 cm LA A4 area: 21.4 cm2 RA A4 area: 10.7 cm2 TAPSE: 2.2 cm Time Measurements MV dec time: 0.23 sec Doppler Measurements & Calculations MV E max rick: 85.7 cm/sec Lat Peak E' Rick: 10.0 cm/sec Med Peak E' Rick: 7.5 cm/sec MV A max rick: 106.0 cm/sec E/E' lat: 8.6 E/E' med: 11.5 MV E/A: 0.81 MV dec slope: 373.6 cm/sec2 Ao V2 max: 175.6 cm/sec LV V1 max: 145.8 cm/sec Ao max P.3 mmHg LV V1 max P.5 mmHg Ao V2 mean: 125.1 cm/sec LV V1 mean P.5 mmHg Ao mean P.0 mmHg LV V1 mean: 113.1 cm/sec Ao V2 VTI: 38.6 cm LV V1 VTI: 32.9 cm AV (velocity ratio): 0.85 REVA(I,D): 2.8 cm2 REVA(V,D): 2.7 cm2 SV(LVOT): 108.5 ml PA V2 max: 112.2 cm/sec ECHO/Echo Complete Interpretation Summary Mild concentric left ventricular hypertrophy. The left ventricular ejection fraction is 65 %. Stage 1 diastolic dysfunction. Mild (1+) mitral valve insufficiency. The study was technically difficult. Hepatic cyst noted. Recommend ultrasound of the liver for further evaluation. Ordering Physician: Kiley Parekh Referring Physician: Kiley Parekh Performed By: Asia Colindres RDCS
== END | disposition home or self-care (01) ==
LOC: CVS 09:51
PROVIDERS: PCP Internal Medicine; Referring Provider Internal Medicine; Visit Provider Internal Medicine
DX: I34.0 Nonrheumatic mitral (valve) insufficiency (principal)
CPT/HCPCS: 93306

== ENCOUNTER → 2024-10-26 | Outpatient (CLI) | payer OTHER, SELFPAY ==
[2024-10-26 08:54] LABS: Absolute Lymphocyte Count 1.97 X10^3/uL (0.83-4.51); Absolute Neutrophil Count 3.7 X10^3/uL (2.0-7.7); Basophil# 0.04 X10^3/uL; Basophil% 0.6 % (0-1); Eosinophil# 0.21 X10^3/uL; Eosinophils% 3.3 % (0-5); Hematocrit 37.4 % (37-47); Hemoglobin 11.1 g/dL (12.0-15.0); Lymphocyte # 1.97 X10^3/ul (0.83-4.51); Lymphocyte % 30.5 % (19-41); Mean Corp Hgb Conc 29.7 g/dL (32-36); Mean Corpuscular Hgb 22.5 pg (27.0-32.0); Mean Corpuscular Volume 75.9 fL (81-99); Mean Platelet Vol. 9.2 fl (6.2-12.0); Monocyte# 0.49 X10^3/uL; Monocyte% 7.6 % (0-10); NRBC Flagged by Analyzer 0 % (0-5); Neutrophil # 3.73 X10^3/uL (2.7-7.7); Neutrophil % 57.8 % (47-70); Platelet Count 378 K/mm3 (150-450); RBC Distribution Width CV 17.9 % (11.6-14.6); RBC Distribution Width SD 48.4 fl (35.1-43.9); Red Blood Count 4.93 M/mm3 (4.2-5.4); White Blood Count 6.5 K/mm3 (4.4-11.0)
[2024-10-26 09:13] LABS: Vitamin B12 239 pg/mL (211-911)
[2024-10-26 09:17] LABS: Hemoglobin A1c 5.8 % (3.8-5.6)
[2024-10-27 06:58] LABS: AST(SGOT) 19 U/L (15-37); Alanine Aminotransfer ALT/SGPT 39 U/L (13-56); Albumin, Serum 3.6 g/dL (3.2-5.0); Alkaline Phosphatase 67 U/L (45-117); Anion Gap 7 (5-15); BUN 14 mg/dL (7-18); BUN/Creat Ratio 16.5 RATIO (10-20); Calcium,Total 9.2 mg/dL (8.5-10.1); Chloride 107 mmol/L (98-107); Cholesterol 144 mg/dL (200); Creatinine, Serum 0.85 mg/dL (0.55-1.02); EST Glomerular Filtration Rate 74 mL/min (>60); Est Glom Filt Rate - Afr Amer 90 mL/min (>60); Ferritin 5 ng/mL (8-252); Globulin 3.6 g/dL (2.2-4.2); Glucose 113 mg/dL (74-106); High Density Lipoprotein 43 mg/dL; Iron 35 ug/dL (50-170); Iron Binding Capacity,Total 505 ug/dL (250-450); PERCENT IRON SATURATION 6.9 % (15.0-55.0); Potassium 4.3 mmol/L (3.5-5.1); Protein, Total 7.2 g/dL (6.4-8.2); Sodium Level 139 mmol/L (136-145); Triglycerides 113 mg/dL; Very Low Density Lipoprotein 23 mg/dL (5-40)
[2024-10-27 15:08] LABS: Lipoprotein A 55.9 nmol/L (<75.0)
== END | disposition home or self-care (01) ==
LOC: LAB 06:56
PROVIDERS: PCP Internal Medicine; Referring Provider Internal Medicine; Visit Provider Internal Medicine
DX: E03.9 Hypothyroidism, unspecified (principal); E78.2 Mixed hyperlipidemia; D64.9 Anemia, unspecified; E88.810 Metabolic syndrome; K75.81 Nonalcoholic steatohepatitis (NASH)
CPT/HCPCS: 36415; 80053; 80061; 82607; 82728; 83036; 83540; 83550; 83695; 84443; 85025

== ENCOUNTER → 2024-11-20 | Outpatient (CLI) | payer OTHER, SELFPAY ==
--- NOTE | 2024-11-20 08:20 | MRI_ITS ---
PROCEDURE: LOWER EXT JOINT ONLY (ROUTINE) 11/20/2024 REASON FOR EXAM: RIGHT KNEE SPRAIN TECHNIQUE: MRI of the right knee without contrast COMPARISON: None provided. FINDINGS A moderate right knee joint effusion is seen. No significant Romero's or popliteal cyst is noted. Inhomogeneous signal in the distal portions of the anterior cruciate ligament noted, concerning for partial tear. No posterior cruciate or collateral ligament tear is seen. Visualized extensor tendons appear intact. No acute osseous signal change is seen. Mild tricompartmental right knee degenerative changes are noted. This results in moderate irregular cartilage thinning of the medial and lateral compartments, mild at the patellofemoral compartment. At the anterior horn of the lateral meniscus, increased signal is seen, likely represent at least intrasubstance tearing. No surfacing meniscal tear is clearly identified. No medial meniscal tear is identified. MRI/Lower Ext Joint Only (Routine) IMPRESSION: 1. Question of partial tear of the right anterior cruciate ligament; recommend clinical correlation. 2. Tricompartmental degenerative changes. 3. There is at least an intrasubstance tear identified in the anterior horn of the lateral meniscus. 4. Moderate joint effusion. Reading Location: [id number]
== END | disposition home or self-care (01) ==
LOC: MRI 08:13
PROVIDERS: PCP Internal Medicine; Referring Provider Orthopaedic Surgery; Visit Provider Orthopaedic Surgery
DX: S83.8X1A Sprain of other specified parts of right knee, initial encounter (principal)
CPT/HCPCS: 73721

== ENCOUNTER 2024-12-01 08:00 | Outpatient (RCR) | payer OTHER, SELFPAY ==
--- NOTE | 2024-11-16 08:54 | HP.PTEVAL_ITS ---
Patient's Visit Information Visit Information Visit Information: GABRIELA SARAVIA is a 54 year old F referred to Physical Therapy by Dr. Vidal Bonilla MD with a diagnosis of R knee pain. Date of Evaluation: 11/12/24 Physical Therapist: Luc Brown DPT Visit Plan Frequency: 2x /Week Duration: 6 Weeks Plan: 1) Restore full motion of R Knee, including progressive end ranges and HS stretching 2) quad, HS and glute strengthening Subjective Subjective: Pt. is here today for her initial evaluation with diagnosis of R knee pain, strain. Pt. was putting her shoes on and felt a pop in her knee. Her injury was in late Sep. She had an xray showing normal knee xray. 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 She reports increased knee pain after work., Pt. denies N/T in either LE. Pt. reports pain at posterior knee, but more sore and anterior and medial aspects. Pt. does ice and elevate at times. She has not tried much exercises yet. She was off work for ~1 week, but is now back. Pt. reports sleeping well. Pt. is moving better than she was, but is still having issues, with walking, stair climbing and twisting. Pt. is hopeful to reduce symptoms in order to get back to all recreational and work activities without limitations. Pain R knee: Pain Intensity (Out of 10): Unrated Pain Intensity Range: 0 and 6 Objective Objective: POSTURE: Pt. has decent posture in stance. Fairly normal wt. shift and decent R knee positioning. PALPATION: Pt. has some slight edema throughout R knee, but no pitting edema noted. Pt. has a general medial joint line pain and slightly posterior. NEURO: normal throughout ROM: Pt. has decent ROM in BLEs. She has slight loss of TKE of RLE. Pt. has normal HS length MMT: L knee: ext 54.7#, flexion: 27.1#; hip: flexion 23.9#, abd 21.8# R: knee: 50.6#, flexion 28.1#; hip: flexion 21.9#, abd 21.8#. GAIT: Pt. has slight antalgic pattern during R stance phase, but not severe. STAIRS: pt. has increased pain with ascending and descending during R stance phase. Pt. has greater pain with descending. Special Tests R Knee She - Meniscus: Negative R Knee Apley - Meniscus: Negative R Knee Disco Test - Meniscus: Positive R Knee Anterior Drawer - ACL: Negative R Knee Posterior Drawer - PCL: Negative R Knee Valgus - MCL: Negative R Knee Varus - LCL: Negative Balance/Special Test Scores Lower Extremity Functional Score: 52 Goals Goal 1:: LTG: Pt. to be I with HEP. Goal Time Frame: 4-6 Weeks Goal 2:: STG: Pt. to sleep throughout the night without increase in R knee pain. Goal Time Frame: 2-4 Weeks Goal 3:: LTG: PT. to be able to complete all work related activities without increase in symptoms. Goal Time Frame: 4-6 Weeks Goal 4:: LTG: Pt. to have increased R knee ROM to full without increase in symptoms. Goal 5:: LTG: Pt. to have increased RLE strength by 10# throughout knee and hip musculature. Goal Time Frame: 4-6 Weeks Rehabilitation Potential Physical Therapy Diagnosis: Pt. has signs and symptoms consistent with R knee pain with some loss in end range of motion. Pt. has some signs including mech th at may include meniscal issues, but also many that did not. I would suggest working on her ROM and progressive strengthening in order to get back to all work and recreational activities as previously. Rehabilitation Potential: Excellent Anticipated Interventions Patient/Client Instruction: Educate patient on: Condition, Plan of Care, Risk Factors and Benefits of Fitness Program For the Purpose of:: To improve decision making, To facilitate caregiver knowledge, To improve self management, To prevent re-injury and To improve ability to perform tasks related to life management Therapeutic Exercise to Include: Strength training, Power training, Postural training, Flexibilty training, Gait and locomotor training, Passive ROM and Active ROM For the Purpose of:: To decrease pain, To increase ROM, To improve nutrient delivery to tissue, To increase oxygenation perfusion, To improve muscle performance and motor function, To improve ability to perform ADL's, To improve health of tissue and To decrease soft tissue restriction Text: Thank you for the opportunity to evaluate your patient. For Medicare and Medicare HMO plans, please review the plan of care and approve it. It will need to be FAXED BACK to us at [phone] for Medicare purposes. For Medicare only, by signing this I certify the plan of care. Please let me know if there are questions or concerns regarding this plan of care. Physician Signature: Date:
== END 2024-12-01 19:00 | disposition home or self-care (01) ==
LOC: PT 08:00
PROVIDERS: PCP Internal Medicine; Referring Provider Orthopaedic Surgery; Visit Provider Orthopaedic Surgery
DX: S83.8X1D Sprain of other specified parts of right knee, subsequent encounter (principal); M17.11 Unilateral primary osteoarthritis, right knee; M25.561 Pain in right knee
CPT/HCPCS: 97110; 97161

== ENCOUNTER → 2025-01-06 | Outpatient (CLI) | payer OTHER, SELFPAY ==
[2025-01-06 06:43] LABS: Absolute Lymphocyte Count 2.17 X10^3/uL (0.83-4.51); Basophil# 0.08 X10^3/uL; Eosinophil# 0.27 X10^3/uL; Eosinophils% 3.3 % (0-5); Hematocrit 38.6 % (37-47); Hemoglobin 11.9 g/dL (12.0-15.0); Lymphocyte # 2.17 X10^3/ul (0.83-4.51); Lymphocyte % 26.6 % (19-41); Mean Corp Hgb Conc 30.8 g/dL (32-36); Mean Corpuscular Hgb 23.3 pg (27.0-32.0); Mean Corpuscular Volume 75.5 fL (81-99); Mean Platelet Vol. 9.5 fl (6.2-12.0); Monocyte# 0.59 X10^3/uL; Monocyte% 7.2 % (0-10); NRBC Flagged by Analyzer 0 % (0-5); Neutrophil # 5.04 X10^3/uL (2.7-7.7); Neutrophil % 61.7 % (47-70); Platelet Count 361 K/mm3 (150-450); RBC Distribution Width CV 18.7 % (11.6-14.6); RBC Distribution Width SD 50.3 fl (35.1-43.9); Red Blood Count 5.11 M/mm3 (4.2-5.4); White Blood Count 8.2 K/mm3 (4.4-11.0)
[2025-01-06 07:17] LABS: Ferritin 10 ng/mL (22-378)
[2025-01-06 07:37] LABS: Iron 30 ug/dL (50-170); Iron Binding Capacity,Total 441 ug/dL (250-450); Iron Binding Capacity,Unsat 411 ug/dL (228-428)
[2025-01-11 14:08] LABS: Cytoplasmic Ab (C-ANCA) <1:20 titer (Neg:<1:20); Dilute Prothrombin Time (dPT) 34.2 sec (0.0-47.6); Dilute Russell Viper Venom 39.2 sec (0.0-47.0); Interpretation Comment: (.); PTT-LA 29.9 sec (0.0-43.5); Perinuclear Ab (P-ANCA) <1:20 titer (Neg:<1:20); Thrombin Time 20.8 sec (0.0-23.0); dPT Confirm Ratio 0.96 Ratio (0.00-1.34)
== END | disposition home or self-care (01) ==
LOC: LAB 06:10
PROVIDERS: PCP Internal Medicine; Referring Provider Internal Medicine Hematology & Oncology; Visit Provider Internal Medicine Hematology & Oncology
DX: D68.62 Lupus anticoagulant syndrome (principal); I27.82 Chronic pulmonary embolism; D50.8 Other iron deficiency anemias
CPT/HCPCS: 36415; 81240; 82728; 83540; 83550; 85025; 86037

== ENCOUNTER 2025-01-12 08:53 | Outpatient (RCR) | payer OTHER, SELFPAY | END 2025-01-30 23:59 | LOC: NS 08:53 | PROVIDERS: PCP Internal Medicine; Referring Provider Specialist; Visit Provider Specialist | DX: Z71.3 Dietary counseling and surveillance (principal); E66.9 Obesity, unspecified; Z68.41 Body mass index [BMI] 40.0-44.9, adult | CPT/HCPCS: 97802 ==

== ENCOUNTER 2025-01-18 07:30 | Outpatient (CLI) | payer OTHER, SELFPAY ==
[2025-01-18] MEDS: Iron Sucrose Complex (Venofer) 200 MG in 0.9% NaCl 100 ML 220 MG IV (07:53)
[2025-01-18 08:00] VITALS: BP 143/83; PULSE 83; RESP 16; TEMP 35.7; O2SAT 95; BMI 43.0
[2025-01-18 08:45] VITALS: BP 145/78; PULSE 80; RESP 16
== END 2025-01-18 23:59 | disposition home or self-care (01) ==
LOC: MEDOUTP 07:30
PROVIDERS: PCP Internal Medicine; Referring Provider Internal Medicine Hematology & Oncology; Visit Provider Internal Medicine Hematology & Oncology
DX: D50.9 Iron deficiency anemia, unspecified (principal)
CPT/HCPCS: 96365; J1756; A4216

== ENCOUNTER 2025-01-20 08:54 | Outpatient (CLI) | payer OTHER, SELFPAY ==
[2025-01-20 09:04] VITALS: BP 150/71; PULSE 81; RESP 16; TEMP 35.6; O2SAT 97
[2025-01-20] MEDS: Iron Sucrose Complex (Venofer) 200 MG in 0.9% NaCl 100 ML 220 MG IV (09:25)
[2025-01-20 10:02] VITALS: BP 134/78; PULSE 75
== END 2025-01-20 23:59 | disposition home or self-care (01) ==
LOC: MEDOUTP 08:54
PROVIDERS: PCP Internal Medicine; Referring Provider Internal Medicine Hematology & Oncology; Visit Provider Internal Medicine Hematology & Oncology
DX: D50.9 Iron deficiency anemia, unspecified (principal)
CPT/HCPCS: 96365; J1756; A4216

== ENCOUNTER 2025-01-22 07:45 | Outpatient (CLI) | payer OTHER, SELFPAY ==
[2025-01-22 08:00] VITALS: BP 137/88; PULSE 92; RESP 16; O2SAT 96; BMI 43.0
[2025-01-22] MEDS: Iron Sucrose Complex 200 MG in 0.9% Normal Saline (100mL Bag) 100 ML 220 MG IV (08:02)
[2025-01-22 08:49] VITALS: BP 143/83; PULSE 89; RESP 16; O2SAT 95
== END 2025-01-22 23:59 | disposition home or self-care (01) ==
LOC: MEDOUTP 07:45
PROVIDERS: PCP Internal Medicine; Referring Provider Internal Medicine Hematology & Oncology; Visit Provider Internal Medicine Hematology & Oncology
DX: D50.9 Iron deficiency anemia, unspecified (principal)
CPT/HCPCS: 96365; J1756; A4216

== ENCOUNTER 2025-01-29 07:47 | Outpatient (CLI) | payer OTHER, SELFPAY ==
[2025-01-29 07:55] VITALS: BP 159/79; PULSE 81; RESP 16; TEMP 35.3; O2SAT 97
[2025-01-29] MEDS: Iron Sucrose Complex (Venofer) 200 MG in 0.9% NaCl 100 ML 220 MG IV (08:03)
[2025-01-29 08:45] VITALS: BP 125/76; PULSE 77; RESP 16; TEMP 36; O2SAT 96
== END 2025-01-29 23:59 | disposition home or self-care (01) ==
LOC: MEDOUTP 07:47
PROVIDERS: PCP Internal Medicine; Referring Provider Internal Medicine Hematology & Oncology; Visit Provider Internal Medicine Hematology & Oncology
DX: D50.9 Iron deficiency anemia, unspecified (principal)
CPT/HCPCS: 96365; J1756

== ENCOUNTER 2025-02-02 08:04 | Outpatient (CLI) | payer OTHER, SELFPAY ==
[2025-02-02 08:25] VITALS: BP 150/82; PULSE 78; RESP 16; TEMP 35.6; O2SAT 97
[2025-02-02] MEDS: Iron Sucrose Complex 200 MG in 0.9% Normal Saline (100mL Bag) 100 ML 220 MG IV (08:29)
[2025-02-02 09:07] VITALS: BP 131/72; PULSE 77; RESP 16; TEMP 35.9
== END 2025-02-02 23:59 | disposition home or self-care (01) ==
LOC: MEDOUTP 08:04
PROVIDERS: PCP Internal Medicine; Referring Provider Internal Medicine Hematology & Oncology; Visit Provider Internal Medicine Hematology & Oncology
DX: D50.9 Iron deficiency anemia, unspecified (principal)
CPT/HCPCS: 96365; J1756; A4216

== ENCOUNTER 2025-02-09 13:34 | Outpatient (RCR) | payer OTHER, SELFPAY | END 2025-03-01 23:59 | LOC: NS 13:34 | PROVIDERS: PCP Internal Medicine; Referring Provider Specialist; Visit Provider Specialist | DX: Z71.3 Dietary counseling and surveillance (principal); E66.9 Obesity, unspecified; Z68.41 Body mass index [BMI] 40.0-44.9, adult | CPT/HCPCS: 97803 ==

== ENCOUNTER → 2025-02-26 | Outpatient (CLI) | payer OTHER, SELFPAY ==
--- NOTE | 2025-02-26 08:03 | BI_ITS ---
EXAM: SCRN MAMM (CAD)W/MALICK BILAT DATE: 02/26/2025 CLINICAL HISTORY: F, Age 54 y/o , SCREENING TECHNIQUE: SCRN MAMM (CAD)W/MALICK BILAT COMPARISON: None available at this time FINDINGS: TISSUE DENSITY: There are scattered areas of fibroglandular density. Bilateral Breast Mammographic Findings: No significant masses, calcifications or other abnormalities are identified. BI/SCRN MAMM (CAD)W/MALICK BILAT IMPRESSION: No mammographic evidence of malignancy in either breast OVERALL FINAL ASSESSMENT BI-RADS 1: NEGATIVE. RECOMMEND ANNUAL MAMMOGRAPHIC SCREENING. RECOMMENDATION: Routine annual follow-up in 1 Year A letter with findings and recommendations will be mailed to the patient. Reading Location: [id number]
== END | disposition home or self-care (01) ==
LOC: OPBI 08:00
PROVIDERS: PCP Internal Medicine; Referring Provider Internal Medicine; Visit Provider Internal Medicine
DX: Z12.31 Encounter for screening mammogram for malignant neoplasm of breast (principal)
CPT/HCPCS: 77063; 77067

== ENCOUNTER 2025-03-17 07:50 | Outpatient (CLI) | payer OTHER, SELFPAY ==
--- NOTE | 2025-03-17 07:56 | CT_ITS ---
PROCEDURE: LIMITED CHEST CT CARDIAC ONLY 03/17/2025 REASON FOR EXAM: ABN GLUCOSE TOLERANCE TECHNIQUE: LIMITED CHEST CT CARDIAC ONLY CONTRAST: None One or more dose reduction techniques were used (e.g., Automated exposure control, adjustment of the mA and/or kV according to patient size, use of iterative reconstruction technique). RADIATION DOSE SUMMARY: CTDlvol: 22.58 mGy DLP: 406.46 mGycm COMPARISON: None FINDINGS: Small benign-appearing mediastinal lymph nodes. The heart is nonenlarged. Mild degree of coronary artery calcification. Diffuse fatty infiltration of the liver. CT/Limited Chest CT Cardiac Only IMPRESSION: Mild degree of coronary artery calcification. Diffuse fatty infiltration of the liver. Reading Location: [place] [id number]
--- NOTE | 2025-03-18 07:33 | CA.SCORE ---
Calcium Scoring Date of Study:: 03/17/25 Indications Indications: Family history Coronary Calcium Scoring: High-resolution Computed Tomographic imaging of the chest was performed on [03/17/2025], with particular attention paid to the coronary arteries. Images from the examination were analyzed for the presence and extent of coronary artery calcification , using coronary calcium quantification software. The patient tolerated the procedure well and there were no complications. The results of the coronary calcification analysis are provided below. Findings Coronary Artery Left Main (LM): 0 Left Anterior Descending (LAD): 7.6 Left Circumflex (LCX): 0 Right Coronary Artery (RCA): 0 Total Agatston Score: 7.6 Percentile Rankin-75% Calcium Scoring Interpretation: Different methods to categorize the overall amount of coronary plaque. Overall amount CAC SIS Visual of coronary plaque P1 Mild -100 <2 1-2 vessels with mild amount of plaque P2 Moderate 101-300 3-4 1-2 vessels with moderate amount, 3 vessels with mild amount of plaque P3 Severe 301-999 5-7 3 vessels with moderate amount, 1 vessel with severe amount of plaque P4 Extensive >1000 >8 2-3 vessels with severe amount of plaque Calcium Score: Mild: 1-2 vessels w/mild amount of plaque Conclusion: Mild focal atherosclerotic plaquing noted in single vessel
== END 2025-03-17 23:59 | disposition home or self-care (01) ==
LOC: CT 07:54
PROVIDERS: PCP Internal Medicine; Referring Provider Internal Medicine; Visit Provider Internal Medicine
DX: R73.09 Other abnormal glucose (principal); I25.10 Atherosclerotic heart disease of native coronary artery without angina pectoris; K76.0 Fatty (change of) liver, not elsewhere classified
CPT/HCPCS: 75571; 76380

== ENCOUNTER 2025-03-23 11:27 | Outpatient (CLI) | payer OTHER, SELFPAY ==
[2025-03-23 11:32] VITALS: BP 149/76; PULSE 73; RESP 16; TEMP 35.8; O2SAT 96
[2025-03-23] MEDS: 0.9% Saline Lock 10 ML Syringe IV (12:02)
[2025-03-23] MEDS: Iron Sucrose Complex (Venofer) 200 MG in 0.9% NaCl 100 ML 220 MG IV (12:03)
[2025-03-23] MEDS: 0.9% Normal Saline Single 100 ML IV.SOLN. IV (12:03)
[2025-03-23 12:45] VITALS: BP 136/79; PULSE 74
== END 2025-03-23 23:59 | disposition home or self-care (01) ==
PROVIDERS: PCP Internal Medicine; Referring Provider Internal Medicine Hematology & Oncology; Visit Provider Internal Medicine Hematology & Oncology
DX: D50.9 Iron deficiency anemia, unspecified (principal)
CPT/HCPCS: 96360; J1756; A4216

== ENCOUNTER 2025-03-26 09:11 | Outpatient (CLI) | payer OTHER, SELFPAY ==
[2025-03-26 09:40] VITALS: BP 150/90; PULSE 72; RESP 16; TEMP 36.6; O2SAT 98
[2025-03-26] MEDS: Iron Sucrose Complex 200 MG in 0.9% Normal Saline (100mL Bag) 100 ML 220 MG IV (09:43)
[2025-03-26 10:27] VITALS: BP 136/76; PULSE 71
== END 2025-03-26 23:59 | disposition home or self-care (01) ==
LOC: MEDOUTP 09:11
PROVIDERS: PCP Internal Medicine; Referring Provider Internal Medicine Hematology & Oncology; Visit Provider Internal Medicine Hematology & Oncology
DX: D50.9 Iron deficiency anemia, unspecified (principal)
CPT/HCPCS: 96365; J1756; A4216

== ENCOUNTER 2025-03-29 10:24 | Outpatient (CLI) | payer OTHER, SELFPAY ==
[2025-03-29 10:42] VITALS: BP 143/80; PULSE 79; RESP 16; TEMP 35.5; O2SAT 100; BMI 43.1
[2025-03-29] MEDS: Iron Sucrose Complex 200 MG in 0.9% Normal Saline (100mL Bag) 100 ML 220 MG IV (10:55)
[2025-03-29 11:49] VITALS: BP 133/75; PULSE 83
== END 2025-03-29 23:59 | disposition home or self-care (01) ==
LOC: MEDOUTP 10:25
PROVIDERS: PCP Internal Medicine; Referring Provider Internal Medicine Hematology & Oncology; Visit Provider Internal Medicine Hematology & Oncology
DX: D50.9 Iron deficiency anemia, unspecified (principal)
CPT/HCPCS: 96365; J1756; A4216

== ENCOUNTER 2025-04-09 09:49 | Outpatient (CLI) | payer OTHER, SELFPAY ==
[2025-04-09 10:05] VITALS: BP 139/77; PULSE 74; RESP 16; TEMP 35.8; O2SAT 97; BMI 42.6
[2025-04-09] MEDS: Iron Sucrose Complex 200 MG in 0.9% Normal Saline (100mL Bag) 100 ML 220 MG IV (10:21)
[2025-04-09 11:23] VITALS: BP 140/78; PULSE 75; RESP 16; TEMP 35.9; O2SAT 98
== END 2025-04-09 23:59 | disposition home or self-care (01) ==
LOC: MEDOUTP 09:51
PROVIDERS: PCP Internal Medicine; Referring Provider Internal Medicine Hematology & Oncology; Visit Provider Internal Medicine Hematology & Oncology
DX: D50.9 Iron deficiency anemia, unspecified (principal)
CPT/HCPCS: 96365; J1756; A4216

== ENCOUNTER 2025-04-14 09:07 | Outpatient (CLI) | payer OTHER, SELFPAY ==
[2025-04-14 09:12] VITALS: BP 156/88; PULSE 86; RESP 16; TEMP 35.6; O2SAT 98
[2025-04-14] MEDS: Iron Sucrose Complex 200 MG in 0.9% Normal Saline (100mL Bag) 100 ML 220 MG IV (09:42)
[2025-04-14 10:27] VITALS: BP 140/84; PULSE 80
== END 2025-04-14 23:59 | disposition home or self-care (01) ==
LOC: MEDOUTP 09:07
PROVIDERS: PCP Internal Medicine; Referring Provider Internal Medicine Hematology & Oncology; Visit Provider Internal Medicine Hematology & Oncology
DX: D50.9 Iron deficiency anemia, unspecified (principal)
CPT/HCPCS: 96365; J1756; A4216

== ENCOUNTER → 2025-04-24 | Outpatient (CLI) | payer OTHER, SELFPAY ==
--- NOTE | 2025-04-24 09:06 | MRI_ITS ---
PROCEDURE: LOWER EXT JOINT ONLY (ROUTINE) 04/24/2025 REASON FOR EXAM: SPRAIN,LEFT KNEE PAIN TECHNIQUE: LOWER EXT JOINT ONLY (ROUTINE) Multiplanar and multisequence images were obtained without IV contrast administration. COMPARISON: COMPARISON : none FINDINGS: The posterior horn of the medial meniscus shows high signal with focal interruption of the meniscal articular surfaces along is root. Intact lateral meniscus. Intact lateral meniscus. Intermediate to high signal of the anterior cruciate ligament. Intact posterior cruciate ligament. The medial collateral ligament is seen encased by edema signal. Intact lateral collateral and retinacular ligaments. Intact patellar and quadriceps tendons. Mild knee joint effusion with no synovial hypertrophy. Tiny Romero's cyst. High signal of the patellar articular cartilage with no underlying marrow edema. Subcortical pseudocyst of the tibial intercondylar region. No marrow infiltrative lesions. Normal MR appearance of the pool-articular musculature with preserved inter- muscular fat planes. Subcutaneous soft tissue edema of the anteromedial aspect of the knee. MRI/Lower Ext Joint Only (Routine) IMPRESSION: Radial tear of the posterior horn of the medial meniscus. Grade I medial collateral ligament sprain. Anterior cruciate ligament mucoid degeneration. Grade I patellar chondromalacia. Mild knee joint effusion. Reading Location[facility]
== END | disposition home or self-care (01) ==
LOC: MRI 08:58
PROVIDERS: PCP Internal Medicine
DX: S83.8X2A Sprain of other specified parts of left knee, initial encounter (principal); M25.562 Pain in left knee
CPT/HCPCS: 73721

== ENCOUNTER → 2025-04-29 | Outpatient (CLI) | payer OTHER, SELFPAY ==
[2025-04-29 09:54] LABS: Mucous, Urine 0 SEEN /hpf (<or=2+); Red Blood Cells-Urine 0 SEEN /hpf (0-5)
[2025-04-29 11:29] LABS: Color, Urine Yellow (Yellow); Glucose, Dipstick Normal (Normal); Ketone-Dipstick Negative (Negative); Leukocyte Esterase-Dipstick 100 /ul (Negative); Nitrite-Dipstick Negative (Negative); Occult Blood-Urine Negative /ul (Negative); Protein-Dipstick 15 mg/dl (Negative); Specific Gravity, Urine 1.020 (1.002-1.030); Urine Bilirubin Dipstick Negative (Negative)
[2025-04-29 11:38] LABS: Squamous Epithelial Cells - UA 5-10 SEEN /hpf (5-10)
[2025-04-29 12:00] LABS: Creatinine, Urine (random) 78.90 mg/dL (28.00-217.00); Microalbumin,Random Urine < 12.0 mg/L (<20 mg/L)
[2025-04-29 12:08] LABS: Ferritin 252 ng/mL (22-378); Iron Binding Capacity,Total 378 ug/dL (250-450)
[2025-04-29 13:10] LABS: Cholesterol 144 mg/dL (<=200); Low Density Lipoprotein Calc. 78 mg/dL; Triglycerides 136 mg/dL; Very Low Density Lipoprotein 27 mg/dL (5-40); cholesterol:hdl ratio screen 3.69
[2025-04-29 13:11] LABS: AST(SGOT) 31 U/L (<=31); Alanine Aminotransfer ALT/SGPT 37 U/L (<=34); Albumin, Serum 4.2 g/dL (3.5-5.0); Alkaline Phosphatase 73 U/L (35-104); Anion Gap 13 (5-15); BUN 17 mg/dL (4-19); BUN/Creat Ratio 20.0 RATIO (10-20); Calcium,Total 9.6 mg/dL (7.6-11.0); Carbon Dioxide 20.7 mmol/L (21.0-32.0); Chloride 105 mmol/L (98-108); Globulin 3.1 g/dL (2.2-4.2); Glucose 105 mg/dL (70-99); Iron 81 ug/dL (50-170); Iron Binding Capacity,Unsat 297 ug/dL (228-428); Potassium 4.4 mmol/L (3.3-5.1)
== END | disposition home or self-care (01) ==
PROVIDERS: PCP Internal Medicine; Referring Provider Internal Medicine Hematology & Oncology; Visit Provider Internal Medicine Hematology & Oncology
DX: E03.9 Hypothyroidism, unspecified (principal); E78.2 Mixed hyperlipidemia; D50.9 Iron deficiency anemia, unspecified; R73.09 Other abnormal glucose
CPT/HCPCS: 80053; 80061; 81001; 82043; 82570; 82728; 83540; 83550; 83695; 84443

== ENCOUNTER 2025-05-10 06:19 | Day surgery (SDC) | payer OTHER, SELFPAY ==
--- NOTE | 2025-04-29 09:20 | EKG12_ITS ---
Test Reason : PREOP Blood Pressure : */* mmHG Vent. Rate : 80 BPM Atrial Rate : 80 BPM P-R Int : 156 ms QRS Dur : 84 ms QT Int : 382 ms P-R-T Axes : 53 27 25 degrees QTcB Int : 440 ms Normal sinus rhythm Normal ECG Confirmed by DEL CANSECO ([id number]), online content editor NANDINI RIOS ([id number]) on 04/30/2025 5:44:55 AM Referred By: Darin Sheriff Confirmed By: DEL CANSECO
[2025-04-29 11:17] LABS: Hematocrit 43.4 % (37-47); Hemoglobin 14.6 g/dL (12.0-15.0); Immature Granulocytes Count 0.010 X10^3/uL (0.0-0.0); Mean Corp Hgb Conc 33.6 g/dL (32-36); Mean Corpuscular Volume 83.6 fL (81-99); Mean Platelet Vol. 10.6 fl (6.2-12.0); NRBC Flagged by Analyzer 0 % (0-5); Platelet Count 310 K/mm3 (150-450); RBC Distribution Width CV 16.9 % (11.6-14.6); RBC Distribution Width SD 51.6 fl (35.1-43.9); Red Blood Count 5.19 M/mm3 (4.2-5.4); White Blood Count 7.1 K/mm3 (4.4-11.0)
[2025-04-29 12:05] LABS: Anion Gap 14 (5-15); BUN 17 mg/dL (4-19); BUN/Creat Ratio 20.5 RATIO (10-20); Calcium,Total 9.7 mg/dL (7.6-11.0); Carbon Dioxide 20.9 mmol/L (21.0-32.0); Chloride 103 mmol/L (98-108); Glucose 106 mg/dL (70-99); Potassium 4.2 mmol/L (3.3-5.1)
--- NOTE | 2025-04-30 14:02 | PAT.ANESEVAL ---
Pre-Assessment Diagnosis/Proposed Procedure Planned Operative Procedure(s): (L) LEFT KNEE ARTHROSCOPIC MEDIAL MENISCUS ROOT REPAIR AND RIGHT KNEE CORTISONE INJECTION Anesthesia History Anesthesia History - minister assistant: Anesthesia History - minister assistant Hx Hospitalization No 04/30/25 13:15 Any Problems With Anesthesia No 04/30/25 13:15 Cholinesterase deficiency No 04/30/25 13:15 You/Your Family Experience No 04/30/25 13:15 fever (hyperthermia) with Relationship Recent Exposure to Contagious No 04/18/21 12:42 Disease Does patient have nerve No 04/30/25 13:15 stimulator Patient instructed to have device shut off --Does patient have Pacemaker or ICD? When Was Last Pacemaker Check QUESTION #4 FULL TEXT: You/Your Family Experience fever (hyperthermia) with Anesthesia Last Oral Intake Last Oral intake: Last Oral Intake NPO since Meds taken in AM with sips of water? Meds patient instructed to take am of surgery PONV PONV - minister assistant: PONV - minister assistant Female Yes 04/30/25 13:15 HX of Motion Sickness Yes 04/30/25 13:15 HX of N/V After Surgery No 04/30/25 13:15 Non-Smoker Yes 04/30/25 13:15 Duration of Surgery greater Yes 04/30/25 13:15 than 60 minutes Number of Risk Factors 4 04/30/25 13:15 PONV Score Severe Risk 04/30/25 13:15 Height & Weight Height & Weight: Anesthesia: Height & Weight Height 5 ft 04/14/25 09:12 Respiratory Assessment Respiratory Assessment - minister assistant: Respiratory Tract Infection Hx - minister assistant Hx Respiratory Tract Infection No 04/30/25 13:15 STOP Sleep Apnea STOP Sleep Apnea - minister assistant: STOP Sleep Apnea - minister assistant Hx Hypertension No 04/30/25 13:15 Hx Sleep Apnea Yes 04/30/25 13:15 CPAP Yes 04/30/25 13:15 BIPAP No 04/30/25 13:15 Do you snore loudly (louder than talking or can be heard Do you often feel tired/ fatigued/ sleepy during daytime? Has anyone observed you stop breathing during sleep? STOP Results Positive 04/30/25 13:15 QUESTION #5 FULL TEXT : Do you snore loudly (louder than talking or can be heard through closed doors)? 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 Specify any problems Hx of Preganancy in last 3 No 04/30/25 13:15 Months Nurse Filling Out Transfusion RAQUEL 04/30/25 13:15 & Questions: Date: 04/30/25 04/30/25 13:15 Time: 13:17 04/30/25 13:15 Patient unable to answer at this time (ie. confused, unrespo /Reproduction History /Reproductive History - minister assistant: /Reproductive Hx- minister assistant Hx Now No 04/30/25 13:15 Gestational Age (in weeks): EDC: Hx Hx Para Hx Section SAB No 04/30/25 13:15 [facility] Medical History (Updated 04/30/25 @ 13:50 by Shauna Sheets) Preop testing History of pulmonary embolism History of DVT (deep vein thrombosis) Excessive bleeding History of ulceration Gastric reflux CPAP (continuous positive airway pressure) dependence Sleep apnea Shortness of breath on exertion Cardiology follow-up encounter Wears contact lenses Wears glasses Anxiety Low iron Fatty liver DVT (deep venous thrombosis) Non-smoker Leg cramps History of edema History of echocardiogram History of stress test Lupus anticoagulant disorder Screening for malignant neoplasm of intestine Contraception management Rheumatoid arthritis Fatty liver disease, nonalcoholic Positive test for human papillomavirus (HPV) Genital herpes Blood clotting disorder Thyroid disease GERD (gastroesophageal reflux disease) PCOS (polycystic ovarian syndrome) Heart murmur Carpal tunnel syndrome Anemia Polycystic ovaries Hypothyroidism Hx of venous thrombosis and embolism Esophageal reflux Home Medications ?Medication ?Instructions ?Recorded ?Last Taken ?Type levothyroxine 150 mcg tablet 150 mcg PO DAILY thyroid 06/01/13 04/18/21 07:00 History lovastatin 20 mg tablet 20 mg PO QHS metabolic syndrome 06/01/13 01/11/17 History pantoprazole 40 mg tablet,delayed 40 mg PO DAILY GERD 06/01/13 04/18/21 07:00 History release spironolactone 100 mg tablet 100 mg PO BID PCOS 06/01/13 01/11/17 History metformin 500 mg tablet 1,000 mg PO BID PCOS 05/02/20 Unknown History (Glucophage) venlafaxine 75 mg capsule,extended 75 mg PO DAILY anxiety #90 caps 03/30/22 Unknown Rx release 24 hr (Effexor XR) apixaban 5 mg tablet (Eliquis) 5 mg PO BID 03/15/23 Unknown History coenzyme Q10 75 mg capsule (Ultra 75 mg PO DAILY 01/14/24 Unknown History CoQ10) valacyclovir 500 mg tablet 500 mg PO BID PRN genital herpes 5 01/14/24 Unknown Rx (Valtrex) days #30 tabs cetirizine 10 mg tablet (Zyrtec) 10 mg PO DAILY Seasonal Allergies 10/06/24 Unknown History metformin 500 mg tablet 500 mg PO 1200 04/30/25 Unknown History nystatin 100,000 unit/gram topical 1 applic topical BID PRN rash 04/30/25 Unknown History powder (Nystop) s-adenosnyl 200 mg-collagen 13.33 1 cap PO TID osteoarthritis 04/30/25 Unknown History pg-ismhyg-[id number]-turm-pep capsule DR (EB-A7 ) Allergy/AdvReac Type Severity Reaction Status Date / Time doxycycline AdvReac Vomiting Verified 04/30/25 13:03 Family History Father Hypertension Diabetes Cancer CAD (coronary artery disease) Mother Cancer ovarian Muscular dystrophy Brother Hypertension Sister Hypertension Glioblastoma Surgical History (Updated 04/30/25 @ 13:14 by Shauna Sheets) History of hysteroscopy History of esophagogastroduodenoscopy (EGD) Hx of colonoscopy S/P bunionectomy H/O dilation and curettage Social History Smoking Status: Never smoker alcohol intake: never substance use type: does not use caffeine: Yes what type of physical activity do you participate in: walking seatbelt use: always do you feel safe at home: Yes 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
[2025-04-30 15:05] LABS: Prothrombin Time (Protime)PT. 13.9 SECONDS (11.7-14.9)
[2025-04-30 15:06] LABS: Partial Thromboplast Time 27.5 Seconds (24.1-36.2)
[2025-05-10] VITALS (11 sets, daily range): BP systolic 102–134; BP diastolic 63–96; PULSE 73–83; RESP 16–18; TEMP 36–36.6; O2SAT 93–100; BMI 42.7
[2025-05-10] MEDS: Lactated Ringers 1,000 ML 15 ML IV (06:51)
[2025-05-10] MEDS: Epinephrine (1 mg/ml) 1 MG/ML VIAL (07:10)
--- NOTE | 2025-05-10 07:18 | PCM.PRE.AN2 ---
ASA Classification* ASA Classification ASA Classification: 3 Assessment & Plan Anesthesia* Anesthesia Assessment Anesthesia Assessment: Discussed sedation and/or anesthesia options, risks, benefits, and alternatives with patient/parents/legal guardian/POA. Questions invited. The patient/parents/legal guardian/POA seems to understand and agrees to proceed with anesthesia plan. Reviewed the physical assessment, medical history, allergy history and patient home medications list prior to surgery/procedure/anesthetic and documented any changes. Performed airway and anesthesia risk assessments. Anesthesia Type Anesthesia Type: General and Block (Femoral and Popliteal block, GETA ) History Source History Obtained from:: Patient and Chart Anesthesia Focused Assessment* Temperature: 97.3 F Pulse Rate: 78 Blood Pressure: 134/87 Respiratory Rate: 18 Pulse Ox: 100 Oxygen Delivery Method: Room Air Airway Assessment Mouth opens: >3 cm Mallampati Score: II Teeth Condition: Intact Neck Range of motion (ROM): Full ROM Labs Anesthesia Preop lab: CBC WBC 7.1 K/mm3 (4.4-11.0) 04/29/25 09:36 04/29/25 RBC 5.19 M/mm3 (4.2-5.4) 04/29/25 09:36 04/29/25 Hgb 14.6 g/dL (12.0-15.0) 04/29/25 09:36 04/29/25 Hct 43.4 % (37-47) 04/29/25 09:36 04/29/25 Plt Count 310 K/mm3 (150-450) 04/29/25 09:36 04/29/25 CHEMISTRY Potassium 4.4 mmol/L (3.3-5.1) 04/29/25 09:45 04/29/25 Sodium 139 mmol/L (133-145) 04/29/25 09:45 04/29/25 Phosphorus 3.6 mg/dL (2.5-4.9) 05/11/22 09:09 05/11/22 BUN 17 mg/dL (4-19) 04/29/25 09:45 04/29/25 Creatinine 0.83 mg/dL (0.70-1.20) 04/29/25 09:45 04/29/25 Glucose 105 mg/dL (70-99) H 04/29/25 09:45 04/29/25 TSH 4.880 uIU/mL (0.300-4.200) H 04/29/25 09:45 04/29/25 COAG PT 13.9 SECONDS (11.7-14.9) 04/30/25 14:07 04/30/25 Urine Test Negative Negative 04/18/21 12:25 04/18/21 Pre-Assessment Diagnosis/Proposed Procedure Planned Operative Procedure(s): (L) LEFT KNEE ARTHROSCOPIC MEDIAL MENISCUS ROOT REPAIR AND RIGHT KNEE CORTISONE INJECTION Anesthesia History Anesthesia History - 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 When Was Last Pacemaker Check QUESTION #4 FULL TEXT: You/Your Family Experience fever (hyperthermia) with Anesthesia Any additional information?: No Last Oral Intake Last Oral intake: Last Oral Intake NPO since 00:00 05/10/25 06:56 Meds taken in AM with sips of Yes 05/10/25 06:56 water? Meds patient instructed to levothyroxine 05/10/25 06:56 take am of surgery pantoprazole Any additional information?: No PONV PONV - veneer glue jointer feedback: PONV - veneer glue jointer feedback Female Yes 04/30/25 13:15 HX of Motion Sickness Yes 04/30/25 13:15 HX of N/V After Surgery No 04/30/25 13:15 Non-Smoker Yes 04/30/25 13:15 Duration of Surgery greater Yes 04/30/25 13:15 than 60 minutes Number of Risk Factors 4 04/30/25 13:15 PONV Score Severe Risk 04/30/25 13:15 Any additional information?: No Height & Weight Height & Weight: Anesthesia: Height & Weight Height 5 ft 10 in 05/10/25 06:56 Weight: 135 kg 05/10/25 06:56 Body Mass Index (BMI) 42.7 05/10/25 06:56 Respiratory Assessment Respiratory Assessment - veneer glue jointer feedback: Respiratory Tract Infection Hx - veneer glue jointer feedback Hx Respiratory Tract Infection No 04/30/25 13:15 Any additional information?: No STOP Sleep Apnea STOP Sleep Apnea - veneer glue jointer feedback: STOP Sleep Apnea - veneer glue jointer feedback Hx Hypertension No 04/30/25 13:15 Hx Sleep Apnea Yes 04/30/25 13:15 CPAP Yes 04/30/25 13:15 BIPAP No 04/30/25 13:15 Do you snore loudly (louder than talking or can be heard Do you often feel tired/ fatigued/ sleepy during daytime? Has anyone observed you stop breathing during sleep? STOP Results Positive 04/30/25 13:15 QUESTION #5 FULL TEXT : Do you snore loudly (louder than talking or can be heard through closed doors)? 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 Specify any problems Hx of Preganancy in last 3 No 04/30/25 13:15 Months Nurse Filling Out Transfusion MGRIFFITH 04/30/25 13:15 & Questions: Date: 04/30/25 04/30/25 13:15 Time: 13:17 04/30/25 13:15 Patient unable to answer at this time (ie. confused, unrespo Any additional information?: No /Reproduction History /Reproductive History - veneer glue jointer feedback: /Reproductive Hx- veneer glue jointer feedback Hx Now No 04/30/25 13:15 Gestational Age (in weeks): EDC: Hx Hx Para Hx Section SAB No 04/30/25 13:15 Any additional information?: No Active Medications Active Medications: Current Medications Generic Name Dose Route Start Last Admin Trade Name Lexii PRN Reason Stop Dose Admin Cefazolin Sodium 3 gm/ Sodium 115 mls @ 200 mls/hr 05/10/25 07:30 Chloride IV 05/10/25 08:04 INTRAOP ONE Lactated Ringer's 1,000 mls @ 15 mls/hr 05/10/25 06:30 05/10/25 06:51 IV 15 mls/hr .Q48H FRANCHESCA Administration PFSH Medical History (Updated 04/30/25 @ 13:50 by Shauna Sheets) Preop testing History of pulmonary embolism History of DVT (deep vein thrombosis) Excessive bleeding History of ulceration Gastric reflux CPAP (continuous positive airway pressure) dependence Sleep apnea Shortness of breath on exertion Cardiology follow-up encounter Wears contact lenses Wears glasses Anxiety Low iron Fatty liver DVT (deep venous thrombosis) Non-smoker Leg cramps History of edema History of echocardiogram History of stress test Lupus anticoagulant disorder Screening for malignant neoplasm of intestine Contraception management Rheumatoid arthritis Fatty liver disease, nonalcoholic Positive test for human papillomavirus (HPV) Genital herpes Blood clotting disorder Thyroid disease GERD (gastroesophageal reflux disease) PCOS (polycystic ovarian syndrome) Heart murmur Carpal tunnel syndrome Anemia Polycystic ovaries Hypothyroidism Hx of venous thrombosis and embolism Esophageal reflux Home Medications ?Medication ?Instructions ?Recorded ?Last Taken ?Type levothyroxine 150 mcg tablet 150 mcg PO DAILY thyroid 06/01/13 05/10/25 History lovastatin 20 mg tablet 20 mg PO QHS metabolic syndrome 06/01/13 05/09/25 History pantoprazole 40 mg tablet,delayed 40 mg PO DAILY GERD 06/01/13 05/10/25 History release spironolactone 100 mg tablet 100 mg PO BID PCOS 06/01/13 05/09/25 History metformin 500 mg tablet 1,000 mg PO BID PCOS 05/02/20 05/09/25 History (Glucophage) venlafaxine 75 mg capsule,extended 75 mg PO DAILY anxiety #90 caps 03/30/22 05/09/25 Rx release 24 hr (Effexor XR) apixaban 5 mg tablet (Eliquis) 5 mg PO BID 03/15/23 05/06/25 History coenzyme Q10 75 mg capsule (Ultra 75 mg PO DAILY 01/14/24 05/03/25 History CoQ10) valacyclovir 500 mg tablet 500 mg PO BID PRN genital herpes 5 01/14/24 Unknown Rx (Valtrex) days #30 tabs cetirizine 10 mg tablet (Zyrtec) 10 mg PO DAILY Seasonal Allergies 10/06/24 05/09/25 History metformin 500 mg tablet 500 mg PO 1200 04/30/25 05/09/25 History nystatin 100,000 unit/gram topical 1 applic topical BID PRN rash 04/30/25 Unknown History powder (Nystop) s-adenosnyl 200 mg-collagen 13.33 1 cap PO TID osteoarthritis 04/30/25 05/02/25 History gx-jfvded-Incefl-turm-pep capsule DR (EB-A7 DR) enoxaparin 120 mg/0.8 mL 120 mg subcut Q12H 05/10/25 05/09/25 History subcutaneous syringe (Lovenox) Allergy/AdvReac Type Severity Reaction Status Date / Time doxycycline AdvReac Vomiting Verified 04/30/25 13:03 Family History Father Hypertension Diabetes Cancer CAD (coronary artery disease) Mother Cancer ovarian Muscular dystrophy Brother Hypertension Sister Hypertension Glioblastoma Surgical History (Updated 04/30/25 @ 13:14 by Shauna Sheets) History of hysteroscopy History of esophagogastroduodenoscopy (EGD) Hx of colonoscopy S/P bunionectomy H/O dilation and curettage Social History Smoking Status: Never smoker alcohol intake: never substance use type: does not use caffeine: Yes what type of physical activity do you participate in: walking seatbelt use: always do you feel safe at home: Yes 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
[2025-05-10] MEDS: Midazolam 2 MG/2 ML Syringe IV (07:29)
[2025-05-10] MEDS: Lidocaine 1% (5 ml sdv) 5 ML Vial 4 ML IV (07:29)
[2025-05-10] MEDS: Lactated Ringers 1,000 ML 1000 ML IV (07:41)
[2025-05-10] MEDS: fentaNYL 100 MCG/2 ML Ampul IV (07:41)
[2025-05-10] MEDS: Cefazolin 1 GM/5 ML Vial 3 GM IV (07:41)
[2025-05-10] MEDS: dexMEDEtomidine 200 MCG/2 ML ML 28 MCG IV (08:06)
--- NOTE | 2025-05-10 08:37 | PCM.POST.ANE ---
Anesthesia: Postop Eval I Current Vital Signs Temperature: 97.3 F Pulse Rate: 79 Blood Pressure: 117/78 Respiratory Rate: 18 Pulse Ox: 93 Assessment Airway patent: Yes Spontaneous unlabored respirations: Yes nausea: No Vomiting: No Anesthesia Complication: No Fluid Hydration Crystalloid volume administer (ml): 1,000 Total IV fluid infused: 1,000 Progress Note Anesthesia document: Postop Eval 1 completed: Yes
--- NOTE | 2025-05-10 09:01 | OP.PCM_ITS ---
Operative Report (Standard) Operative Information Date of Procedure: 05/10/25 Pre-Operative Diagnosis: 1. Left knee medial meniscal root tear 2. Left knee chondromalacia 3. Right knee osteoarthritis Post-Operative Diagnosis: 1. Left knee medial meniscal root tear 2. Left knee chondromalacia 3. Right knee osteoarthritis Surgery/Procedure Performed: 1. Left knee arthroscopic medial meniscal root repair and chondroplasty 2. Right knee corticosteroid injection dispatcher service chief: Yes Beater Tender: Diamante Galvan Tasks completed by marketing assistant: Opening & closing, Implanting device and Retracting Type of Anesthesia: General/Regional RN Documented Start/Stop Times: Operation Date: 05/10/25 07:30 Case Time Into Pre-Op 05/10/25 06:20 Out of Pre-Op 05/10/25 07:20 Anesthesia Start 05/10/25 07:41 Into Room 05/10/25 07:41 Procedure Start 05/10/25 08:03 Procedure End 05/10/25 08:29 Anesthesia End 05/10/25 08:35 Out of Room 05/10/25 08:35 Into Recovery 05/10/25 08:38 Procedure Start Time: 08:03 Procedure Stop Time: 08:29 Select all DRAINS/GRAFTS/IMPLANTS that apply: Implanted device Implanted device details: Arthrex 4.75 mm peek bio composite swivel lock anchor x 1 Estimated Blood Loss: 25 cc Specimen collected: No Description of surgery: Patient identified preoperative holding area by name, correct number, and date of . The operative extremity was marked. All questions were answered to the patient satisfaction. Popliteal and femoral nerve blocks were administered for anesthesia prior to the procedure. At time of her procedure, patient brought the operative suite positioned supine on standard operating table. All bony prominences well-padded. General anesthesia was administered and LMA was placed. A well-padded pneumatic tourniquet was applied to the operative upper thigh. An arthroscopic leg lutz was placed around the left lower extremity. A well-leg lutz was placed beneath the patient's right thigh. The foot of the bed was dropped 90 degrees. 3 g Ancef was administered by anesthesia staff prior to incision. Tourniquet was never inflated. A timeout was called confirming the side, site, and operation to be performed. No concerns were voiced and we elected to proceed with surgery. Right knee intra-articular corticosteroid injection was performed in standard fashion via superior medial injection site. Skin was prepped by the alcohol, previously drawn a solution of 1 cc 40 mg Kenalog and 4 cc quarter percent bupivacaine plain was injected with a 25-gauge needle in standard fashion. Needle was withdrawn and Band-Aid applied. I then turned my attention to the left knee. Left lower extremity was prepped and draped in normal, sterile orthopedic fashion. Standard anterolateral portal was then established 90 degrees of flexion. Blunt tipped trocar was used to enter the knee joint. Knee was filled with normal saline with epinephrine. Arthroscope was then introduced. Patellofemoral joint demonstrated mild grade 1?2 chondromalacia. Medial and lateral gutters were unremarkable. Medial compartment was entered with valgus stress. Anterior medial portal was established in standard fashion. Probing the medial meniscus demonstrated near full-thickness meniscal root tear. Focal grade III chondromalacia was noted approximately 0.5 x 2 cm along the central aspect of the medial femoral condyle. Unstable chondral margin was debrided with the arthroscopic shaver. Tibial cartilage demonstrated grade I chondromalacia. Intercondylar notch was examined and ACL was pristine. Lateral compartment was entered with a [id number] stress. The lateral compartment was probed and the meniscus was stable without significant tearing noted. I then returned to the medial compartment. I elected to proceed with meniscal root repair. I debrided the footprint of the meniscus and decorticated with a rasp. 2 fiber link sutures were passed through the posterior horn 3-4 mm from the tear margin with a [email or web address] meniscal suture passer. Sutures were then retrieved out an accessory far medial portal. I then introduced the drill guide for the tibial tunnel. This was placed at the [place] footprint. 2 cm incision was made along the anterior medial tibial crest. I then drilled to our planned trajectory with a flip cutter. The flip cutter was deployed and a 1 cm socket was established in the subchondral bone. A nitinol wire was then passed through the tibial tunnel after the drill was removed. Sutures were shuttled through the tibial tunnel. Sutures were passed through the eyelet of a swivel lock anchor. Approximately 1 cm distal to our tunnel, I drilled and tapped for the swivel lock anchor. Suture was tensioned within the anchor and the anchor was successfully placed with excellent cortical purchase. Sutures were cut. The meniscus was probed and appeared stable and well reduced. Portal sites were closed in interrupted [id number] fashion with 3-0 nylon suture. Bulky sterile compression system was applied. Patient was safely awakened in the operative suite and extubated. A T ROM brace was placed locked in full extension and set from 0 to 90 degrees. She was transferred to his gurney and subsequent to PACU in stable condition. Need for skilled geological survey field assistant: Diamante Galvan PA-C was critical to the outcome of the case. During the course of the procedure the physician geological survey field assistant played a vital role. Her intimate knowledge of my steps in the procedure aided in safe and expedient completion of the procedure. The PA played a vital role in positioning particularly in obtaining the appropriate positioning. The PA was also vital in the retraction of soft tissues during the exposure and protecting vital structures. The PA was also vital and obtaining meniscus reduction and assisting with hardware placement. She also played a vital role in closure and brace application with my direct supervision. Postoperative plan: Follow-up in 2 weeks for suture removal Nonweightbearing x 6 weeks Range of motion 0-90 degrees x 6 weeks Physical therapy to start next week Patient is on chronic anticoagulant therapy. She has scheduled Lovenox for the next 4 weeks and then plan to transition back to her standard oral anticoagulant as guided by her it quality assurance analyst. Will start the Lovenox on postoperative day 1 in the morning. Multimodal pain management in the form of Tylenol, opioid as prescribed. Avoid NSAIDs due to anticoagulation. Surgical Findings: Near full-thickness medial meniscal root tear, chondromalacia medial femoral condyle Complications Complications: No Admit VTE Documentation VTE Present on Admission: No VTE Mechan Device Prophylaxis: SCD's and Thigh High DAVID Hose VTE Pharm Prophylaxis ordered?: Yes
--- NOTE | 2025-05-10 09:42 | POSTOPAN2_ITS ---
Anesthesia Postop Eval I Sum Postop Eval Completion status Anesthesia document: Postop Eval 1 completed: Yes Anesthesia Postop Eval I Summary Anesthesia Postop Eval I Summary: Anesthesia Postop Eval I: Assessment Summary Airway patent Yes 05/10/25 09:28 STUDENT RECORDS COORDINATOR.CSIR Spontaneous unlabored Yes 05/10/25 09:28 STUDENT RECORDS COORDINATOR.CSIR respirations Mental status nausea No 05/10/25 09:28 STUDENT RECORDS COORDINATOR.CSIR Vomiting No 05/10/25 09:28 STUDENT RECORDS COORDINATOR.CSIR Anesthesia Postop Eval I: Fluid Summary Crystalloid volume administer 1,000 05/10/25 09:28 STUDENT RECORDS COORDINATOR.CSIR (ml) Colloids volume administered ( ml) Blood Product volume administered (ml) Total IV fluid infused 1,000 05/10/25 09:28 STUDENT RECORDS COORDINATOR.CSIR Anesthesia Postop Eval I: Summary Notes Anesthesia Complication No 05/10/25 09:28 STUDENT RECORDS COORDINATOR.CSIR Anesthesia Complication Comment: Post-operative progress note Anesthesia: Postop Eval II Evaluation Mental status: Awake and Calm Pain Level: 1 nausea: No Vomiting: No Complications Anesthesia Complication: No
--- NOTE | 2025-05-10 09:42 | PCM.POSTANE2 ---
Anesthesia Postop Eval I Sum Postop Eval Completion status Anesthesia document: Postop Eval 1 completed: Yes Anesthesia Postop Eval I Summary Anesthesia Postop Eval I Summary: Anesthesia Postop Eval I: Assessment Summary Airway patent Yes 05/10/25 09:28 [email or web address] Spontaneous unlabored Yes 05/10/25 09:28 [email or web address] respirations Mental status nausea No 05/10/25 09:28 [email or web address] Vomiting No 05/10/25 09:28 [email or web address] Anesthesia Postop Eval I: Fluid Summary Crystalloid volume administer 1,000 05/10/25 09:28 [email or web address] (ml) Colloids volume administered ( ml) Blood Product volume administered (ml) Total IV fluid infused 1,000 05/10/25 09:28 [email or web address] Anesthesia Postop Eval I: Summary Notes Anesthesia Complication No 05/10/25 09:28 [email or web address] Anesthesia Complication Comment: Post-operative progress note Anesthesia: Postop Eval II Evaluation Mental status: Awake and Calm Pain Level: 1 nausea: No Vomiting: No Complications Anesthesia Complication: No
== END 2025-05-10 11:41 | disposition home or self-care (01) ==
LOC: SDC 06:20 → AC 06:20
PROVIDERS: Anesthesiology; PCP Internal Medicine; Referring Provider Student in an Organized Health Care Education/Training Program; Visit Provider Student in an Organized Health Care Education/Training Program
PROC: (CPT 29870; principal; 2025-05-10 07:10)
DX: S83.242A Other tear of medial meniscus, current injury, left knee, initial encounter (principal); M06.9 Rheumatoid arthritis, unspecified; M17.11 Unilateral primary osteoarthritis, right knee; M94.262 Chondromalacia, left knee; X50.1XXA Overexertion from prolonged static or awkward postures, initial encounter; D68.61 Antiphospholipid syndrome; E03.9 Hypothyroidism, unspecified; Z79.01 Long term (current) use of anticoagulants; Z79.899 Other long term (current) drug therapy; Z86.718 Personal history of other venous thrombosis and embolism; Z86.711 Personal history of pulmonary embolism
CPT/HCPCS: 29882; 20610; 64450; 64447; 36415; 80048; 85025; 85610; 85730; 93005; J2405

== ENCOUNTER → 2025-08-12 | Outpatient (CLI) | payer OTHER, SELFPAY ==
[2025-08-12 18:23] LABS: Microalbumin,Random Urine 33.8 mg/L (<20 mg/L)
== END | disposition home or self-care (01) ==
LOC: LAB 14:36
PROVIDERS: PCP Internal Medicine; Referring Provider Internal Medicine; Visit Provider Internal Medicine
DX: R79.89 Other specified abnormal findings of blood chemistry (principal); R73.09 Other abnormal glucose
CPT/HCPCS: 36415; 82043; 84443